=== PATIENT | female | born 1960 | race Caucasian/White ===

== ENCOUNTER 2023-06-17 23:35 | Emergency (ER) | payer OTHER, SELFPAY ==
--- NOTE | 2023-06-17 23:40 | ED.RN ---
Pt ambulates from squad to room 9 without difficulty. Pt sits on bed and immediately places a phone call to someone she calls camilo. She refuses to get off the phone to answer questions for ER staff or to sign consent for EMS. This nurse and another RN attempts to help her in explaining situation to her dad and she guards phone and states get the fuck off of me, you're out of you're fucking mind . Attempted to explain to pt that we needed to assess her, and if she had changed her mind about wanting to be seen she was free to do so and could call for a ride. She again states to nurse you are out of you're fucking mind trying to kick me out . Explained to pt no one was kicking her out and that staff was trying to assess her. After much explanation and coaxing, pt allows father to be put on speaker phone for staff to explain to him, so that he could explain to her, what staff needed and that it was okay to sign consent for EMS. Pt then signs consent for EMS.
[2023-06-17 23:46] VITALS: BP 147/95; PULSE 110; RESP 10; TEMP 36.3; O2SAT 95; BMI 19.8
--- NOTE | 2023-06-18 00:01 | EX.ED.DYSGE1 ---
HPI History of Present Illness Chief Complaint: Overdose Informant: patient Narrative Narrative: Patient presents feeling ill after taking a THC gummy. She states she has never taken these before. She felt perfectly fine but just wanted to get some sleep. She initially took one half of 1 gummy. She did not feel anything so she took the second half. Then she started to feel ill. After some questioning I find that that means she just did not feel well and she feels nauseated and shaky. No actual vomiting. The triage note says 175 mg. But this was a single gummy that she took. [facility] Medical History ADHD Home Medications buspirone 15 mg tablet 15 mg PO TID 06/17/23 [History Last Taken Unknown] diphenhydramine HCl 25 mg capsule (Benadryl) 25 mg PO Q8H PRN allergy symptoms 06/17/23 [History Last Taken Unknown] ibuprofen 200 mg capsule 400 mg PO Q8H 06/17/23 [History Last Taken Unknown] lisdexamfetamine 70 mg capsule 70 mg PO DAILY 06/17/23 [History Last Taken Unknown] Allergy/AdvReac Type Severity Reaction Status Date / Time acetaminophen [From Percocet] Allergy PT UNSURE Verified 06/17/23 23:50 OF REACTION clarithromycin [From Biaxin] Allergy Nausea/Vom/ Verified 06/17/23 23:50 Diarrhea famotidine [From Pepcid] Allergy PT UNSURE Verified 06/17/23 23:50 OF REACTION oxycodone [From Percocet] Allergy PT UNSURE Verified 06/17/23 23:50 OF REACTION Penicillins Allergy Rash Verified 06/17/23 23:50 Surgical History History of tonsillectomy Social History household members: none housing: house current occupational status: employed Smoking Status: Never smoker ROS ROS ED Constitutional Constitutional ED: Denies chills, fever(s) or sweats Eyes Eyes: Denies change in vision ENT ENT ED: Denies rhinorrhea or sore throat Cardiovascular Cardiovascular: Denies chest pain, palpitations or racing heartbeat Respiratory/Chest Respiratory/Chest: Denies cough or dyspnea Gastrointestinal Gastrointestinal: Reports nausea; Denies abdominal pain or vomiting Genitourinary Genitourinary ED: Denies dysuria Musculoskeletal Musculoskeletal: Denies myalgias Integumentary Denies rash Neurologic Neurologic: Reports other Details: Feels shaky but no focal deficit. ; Denies headache(s), paresthesias or weakness Endocrine Endocrinology: Denies polydipsia or polyuria Hematologic/Lymphatic Hematologic/Lymphatic: Denies easy bleeding or easy bruising Allergic/Immunologic Allergic/Immunologic ED: Denies urticaria EXAM Physical Exam Narrative Exam Narrative: CONSTITUTIONAL: Patient is nontoxic in appearance. The patient looks comfortable. She is holding an emesis bag but no vomitus in there. HEENT: No notable trauma. Mucous membranes mildly dry. Normal voice. EYES: No conjunctival injection. No proptosis. CARDIOVASCULAR: Regular rate. Regular rhythm. No notable murmur. No JVD. RESPIRATORY: No respiratory distress. Breathing is unlabored. No wheezes. No rhonchi. No rales. No pain with a deep breath. Saturations are normal at 95% on room air showing no hypoxia. GASTROINTESTINAL: Not distended. Bowel sounds are normal. No tenderness. No guarding. No rebound. No palpable mass. No bruit. She has nausea but her abdomen is overall benign. GENITOURINARY: No tenderness over the bladder. MUSCULOSKELETAL: Atraumatic. No peripheral edema. No tenderness NEUROLOGICAL: Patient is alert and appropriate. She is sometimes just slightly slow to answer questions. She also refers to her chart for her history and allergies etc. SKIN: No noted rashes. No diaphoresis. PSYCHIATRIC: Patient is calm. Mood is flat. Const Vital Signs: 06/17/23 23:46 06/18/23 00:09 06/18/23 02:04 Temperature 97.4 F L Temperature Source Temporal Pulse Rate 110 H 108 H 85 Respiratory Rate 10 L 16 16 Blood Pressure 147/95 H 138/100 H 139/87 H Blood Pressure Mean 112 112 104 Pulse Ox 95 96 98 Oxygen Delivery Method Room Air Room Air Room Air 06/18/23 02:44 Temperature 98 F Temperature Source Pulse Rate 79 Respiratory Rate 16 Blood Pressure 129/79 H Blood Pressure Mean 95 Pulse Ox 98 Oxygen Delivery Method MDM MDM MDM Narrative Medical decision making narrative: Patient's CBC is normal. Patient's her electrolytes are normal other than mildly low potassium at 3.4 that should self-correct. Patient's glucose is a little bit high at 179. This will need to be rechecked but I do not think this needs acute treatment at this time. Patient's troponin is normal. We did this not because she was having chest pain but rather that she had just generalized ill feelings with an abnormal EKG and no prior for comparison. Patient is treated with Zofran and IV fluids. She has been doing better. Her heart rate is down. She is tired but otherwise feels okay. I think she is safe to get home. I will write for a few Zofran if needed further. Lab Data Attestation: I reviewed the patient's lab results. Labs: Laboratory Results - last 24 hr 06/18/23 00:10 WBC 5.7 RBC 4.88 Hgb 14.8 Hct 44.7 MCV 91.6 MCH 30.3 MCHC 33.1 RDW Std Deviation 41.4 RDW Coeff of Ermelinda 12.3 Plt Count 301 MPV 8.5 Immature Gran % (Auto) 0.200 Neut % (Auto) 50.5 Lymph % (Auto) 39.3 Hudson % (Auto) 10.0 Eos % (Auto) 0.0 Baso % (Auto) 0.0 Absolute Neuts (auto) 2.9 Absolute Lymphs (auto) 2.23 Nucleated RBC % 0 Sodium 137 Potassium 3.4 L Chloride 105 Carbon Dioxide 28.0 Anion Gap 4 L BUN 20 H Creatinine 0.85 Estim Creat Clear Calc 65.87 Est GFR (MDRD) Af Amer 87 Est GFR (MDRD) Non-Af 72 BUN/Creatinine Ratio 23.6 H Glucose 179 H Calcium 9.5 Troponin I High Sens 5 EKG Initial EKG: Comments: My independent interpretation of the patient's EKG shows sinus rhythm with overall rate of 92. There was a right bundle branch block and some signs of LVH. There is diffuse ST and T wave changes likely from her bundle and LVH and some motion artifact. No convincing evidence of acute ST elevation. I was not able to find an old for comparison. Discharge Plan Triage Chief Complaint: Overdose ED Provider: Sanjiv Magallanes Dx/Rx/DC Orders Clinical Impression: Adverse effect of cannabis Instructions: ED Drug Reaction, Other Prescriptions: No Action buspirone 15 mg tablet 15 mg PO TID Patient Comments: Take 1 tablet by mouth three times a day. lisdexamfetamine 70 mg capsule 70 mg PO DAILY Patient Comments: TAKE 1 CAPSULE BY MOUTH ONCE DAILY ibuprofen 200 mg capsule 400 mg PO Q8H diphenhydramine HCl [Benadryl] 25 mg capsule 25 mg PO Q8H PRN (Reason: allergy symptoms) Primary Care Provider: Yarely Tolentino NP Referrals: NOT,DEFINED [Non-Staff] - Yarely Tolentino FIRE INFORMATION OFFICER, FIRE INFORMATION OFFICER-C [Primary Care Provider] - 1-2 Days if not improving Disposition Disposition: Home, Self Care
[2023-06-18] MEDS: 0.9% Normal Saline (1000mL) 1,000 ML 1000 ML IV (00:06)
[2023-06-18] MEDS: Ondansetron 4 MG/2 ML Vial IV (00:07)
[2023-06-18 00:09] VITALS: BP 138/100; PULSE 108; RESP 16; O2SAT 96
[2023-06-18 00:19] LABS: Absolute Lymphocyte Count 2.23 X10^3/uL (0.83-4.51); Absolute Neutrophil Count 2.9 X10^3/uL (2.0-7.7); Hematocrit 44.7 % (37-47); Hemoglobin 14.8 g/dL (12.0-15.0); Lymphocyte # 2.23 X10^3/ul (0.83-4.51); Lymphocyte % 39.3 % (19-41); Mean Corp Hgb Conc 33.1 g/dL (32-36); Mean Corpuscular Hgb 30.3 pg (27.0-32.0); Mean Corpuscular Volume 91.6 fL (81-99); Mean Platelet Vol. 8.5 fl (6.2-12.0); Monocyte# 0.57 X10^3/uL; NRBC Flagged by Analyzer 0 % (0-5); Neutrophil # 2.87 X10^3/uL (2.7-7.7); Neutrophil % 50.5 % (47-70); Platelet Count 301 K/mm3 (150-450); RBC Distribution Width CV 12.3 % (11.6-14.6); RBC Distribution Width SD 41.4 fl (35.1-43.9); Red Blood Count 4.88 M/mm3 (4.2-5.4); White Blood Count 5.7 K/mm3 (4.4-11.0)
[2023-06-18 00:33] LABS: Anion Gap 4 (5-15); BUN 20 mg/dL (7-18); BUN/Creat Ratio 23.6 RATIO (10-20); Calcium,Total 9.5 mg/dL (8.5-10.1); Chloride 105 mmol/L (98-107); Creatinine, Serum 0.85 mg/dL (0.55-1.02); EST Glomerular Filtration Rate 72 mL/min (>60); Est Glom Filt Rate - Afr Amer 87 mL/min (>60); Estimated Creatinine Clearance 65.87 ml/min; Glucose 179 mg/dL (74-106); Potassium 3.4 mmol/L (3.5-5.1); Sodium Level 137 mmol/L (136-145)
--- NOTE | 2023-06-18 00:45 | ED.RN ---
Registration makes this nurse aware that pt refuses to sign consent. This nurse to room. Pt has blanket over head and refuses to talk to nurse. This nurse removes blanket from her head, pt quickly grabs blanket from nurse and places back over her head. This nurse attempts to talk to pt and she refuses to answer. Arthur removed from pt. Pt stares straight ahead and refuses to talk to any ER staff.
--- OUTSIDE RECORDS SUMMARY | 2023-06-18 00:45 | XMS RPT_ITS | CCD ---
Author Name Unknown Address [address] [place] [address] Organization [facility] Care Team Providers Care Stitch Bonding Machine Operator Name Role Phone Renan Crum Unavailable Unavailable Aminah Roblero Unavailable Unavailable ROSEANNE JASON (PA) Unavailable Unavailable ROSEANNE JASON (PA) Unavailable Unavailable Unavailable Primary Care Provider Unavailabl e Unavailable Primary Care Provider Unavailabl e Queden CREATIVE MANAGER.DISPATCH MACHINE RUNNER, Yarely A Primary Care Provider QUEDEN, YARELY A Referring Unavailable QUEDEN, YARELY A Primary Care Unavailable QUEDEN, YARELY A Attending Unavailable QUEDEN, YARELY A Primary Care Unavailable BERNNER, CAROLYN E Attending Unavailable BRENNER, CAROLYN E Attending Unavailable BRENNER, CAROLYN E Attending Unavailable QUEDEN, YARELY A Primary Care Unavailable QUEDEN, YARELY A Primary Care Unavailable Allergies Allergy Classification Reported Allergen(s) Allergy Type Date of Onset Reaction(s) Facility (1 source) acetaminophen / oxyCODONE; Translations: [Percocet 5/325] Drug Allergy [facility] Repository (1 source) clarithromycin; Translations: [Biaxin] Drug Allergy [facility] Repository (1 source) famotidine; Translations: [Pepcid I.V.] [facility] ([facility] source) famotidine; Translations: [Pepcid] Drug Allergy [facility] Repository (20 sources) Penicillins; Translations: [penicillins] Propensity to adverse reactions to drug (disorder) 5 [facility] Repository (20 sources) acetaminophen / oxyCODONE; Translations: [OXYCODONE-ACETAM INOPHEN] Drug Allergy 5 [facility] Repository (20 sources) clarithromycin; Translations: [CLARITHROMYCIN] Drug Allergy 6 Intolerance [facility] Repository (20 sources) famotidine; Translations: [FAMOTIDINE] Drug Allergy 6 Rash [facility] Repository Medications Current Medications Medication Drug Class(es) Dates Sig (Normalized) Sig (Original) busPIRone hydrochloride 15 mg oral tablet (20 sources) Start: 02-20-2023 End: 07-18-2023 take 1 tablet by mouth three times daily busPIRone (BUSPAR) 15 mg tablet Take 1 tablet by mouth three times a day. 90 tablet 2 04/19/2023 07/18/2023 Active Completed/Discontinued Medications Medication Drug Class(es) Dates Sig (Normalized) Sig (Original) ferrous sulfate 325 mg oral tablet (2 sources) End: 11-01-2022 ferrous sulfate 325 mg (65 mg iron) tablet Take 325 mg by mouth. 0 11/01/2022 Discontinued Problems Active Problems Problem Classification Problem Date Documented Date Episodic/Chronic Adjustment disorders (20 sources) Family tension; Translations: [Reaction to severe stress, unspecified] Onset: 06-17-2014 06-17-2014 Chronic Anxiety disorders (20 sources) Generalized anxiety disorder; Translations: [Generalized anxiety disorder] Onset: 10-08-2021 Chronic Attention-deficit, conduct, and disruptive behavior disorders (1 source) Attention-deficit hyperactivity disorder, predominantly inattentive type; Translations: [ADHD (attention deficit hyperactivity disorder), inattentive type] Onset: 10-08-2021 Chronic Cardiac dysrhythmias (1 source) Multiple premature ventricular complexes; Translations: [Ventricular premature depolarization] 05-05-2023 Chronic Cardiac dysrhythmias (9 sources) Palpitations; Translations: [Palpitations] Onset: 03-16-2023 03-16-2023 Episodic Disorders usually diagnosed in infancy, childhood, or adolescence (20 sources) Attention deficit hyperactivity disorder, predominantly inattentive type; Translations: [Other specified behavioral and emotional disorders with onset usually occurring in childhood and adolescence] 05-24-2021 Chronic Immunizations and screening for infectious disease (4 sources) Patient encounter status; Translations: [Encounter for screening for infections with a predominantly sexual mode of transmission] Onset: 03-16-2023 03-16-2023 Episodic Other female genital disorders (1 source) Vaginal lesion; Translations: [Other specified noninflammatory disorders of vagina] 03-16-2023 Episodic Other female genital disorders (1 source) Other specified noninflammatory disorders of vagina; Translations: [Vaginal lesion] Onset: 03-16-2023 Episodic Other screening for suspected conditions (not mental disorders or infectious disease) (2 sources) Encounter for screening for diabetes mellitus; Translations: [Encounter for screening for lipoid disorders] Onset: 03-16-2023 Episodic Other upper respiratory infections (1 source) Viral upper respiratory tract infection; Translations: [Acute upper respiratory infection, unspecified] Episodic Residual codes; unclassified (1 source) Insomnia; Translations: [Other insomnia] 03-19-2023 Chronic Residual codes; unclassified (20 sources) Insomnia; Translations: [Insomnia, unspecified] Onset: 11-04-2014 07-17-2006 Episodic Unclassified (1 source) Unknown / UNK(Unknown) Onset: 12-07-2017 Viral infection (20 sources) Genital herpes simplex; Translations: [Herpesviral infection of urogenital system, unspecified] Onset: 11-06-2009 11-06-2009 Chronic Past or Other Problems Problem Classification Problem Date Documented Date Episodic/Chronic Malaise and fatigue (20 sources) Fatigue; Translations: [Other fatigue] Onset: 011 04-06-2011 Episodic Nutritional deficiencies (20 sources) Magnesium deficiency; Translations: [Magnesium deficiency] Onset: 015 07-29-2014 Episodic Other circulatory disease (14 sources) ENT symptoms; Translations: [Other specified symptoms and signs involving the circulatory and respiratory systems] Onset: 015 06-17-2014 Episodic Other circulatory disease (1 source) Facial sinus finding; Translations: [Other specified symptoms and signs involving the circulatory and respiratory systems] Onset: 015 06-17-2014 Episodic Other gastrointestinal disorders (15 sources) Flatulence, eructation and gas pain; Translations: [Flatulence] Onset: 015 06-17-2014 Episodic Other gastrointestinal disorders (14 sources) Bloating symptom; Translations: [Abdominal distension (gaseous)] Onset: 06-17-2014 Episodic Other gastrointestinal disorders (1 source) Abdominal bloating; Translations: [Abdominal distension (gaseous)] Onset: 015 06-17-2014 Episodic Other skin disorders (10 sources) Dry skin; Translations: [Xerosis cutis] Onset: 011 04-06-2011 Episodic Other skin disorders (10 sources) Xeroderma; Translations: [Xerosis cutis] Onset: 011 04-06-2011 Episodic Residual codes; unclassified (20 sources) Heterozygous methylenetetrahydrofolate reductase mutation; Translations: [Genetic susceptibility to other disease] Onset: 015 07-29-2014 Episodic Residual codes; unclassified (20 sources) Postmenopausal state; Translations: [Asymptomatic menopausal state] Onset: 018 06-05-2017 Episodic Results Test Name Value Interpretation Reference Range Facil ity Vital Signs Date Time Vital Sign Value Performing Clinician Karsten deluna 03-16-2023 10:44-0400 Body height 175.3 cm Yarely Tolentino CREATIVE MANAGER.DISPATCH MACHINE RUNNER Work Phone: [facility] 03-16-2023 10:44-0400 Body temperature 98.1 [degF] Yarely Joseden CREATIVE MANAGER.DISPATCH MACHINE RUNNER Work Phone: [facility] 03-16-2023 10:44-0400 Body weight 58.06 kg Yarely Tolentino CREATIVE MANAGER.DISPATCH MACHINE RUNNER Work Phone: [facility] 03-16-2023 10:44-0400 Diastolic blood pressure 74 mm[Hg] Yarely Queden CREATIVE MANAGER.DISPATCH MACHINE RUNNER Work Phone: [facility] 03-16-2023 10:44-0400 Heart rate 88 /min Yarely Joseden CREATIVE MANAGER.DISPATCH MACHINE RUNNER Work Phone: [facility] 03-16-2023 10:44-0400 Respiratory rate 18 /min Yarely Joseden CREATIVE MANAGER.DISPATCH MACHINE RUNNER Work Phone: [facility] 03-16-2023 10:44-0400 SaO2% (BldA) [Mass fraction] 97 % Yarely Queden CREATIVE MANAGER.DISPATCH MACHINE RUNNER Work Phone: [facility] 03-16-2023 10:44-0400 Systolic blood pressure 120 mm[Hg] Yarely Tolentino CREATIVE MANAGER.DISPATCH MACHINE RUNNER Work Phone: [facility] 09-09-2022 10:34-0400 Body temperature 98.1 [degF] Gela Athy PA-C Work Phone: [facility] 09-09-2022 10:34-0400 Body weight 60.06 kg Gela Athy PA-C Work Phone: [facility] 09-09-2022 10:34-0400 Diastolic blood pressure 88 mm[Hg] Gela Athy PA-C Work Phone: [facility] 09-09-2022 10:34-0400 Heart rate 95 /min Gela Athy PA-C Work Phone: [facility] 09-09-2022 10:34-0400 Respiratory rate 16 /min Gela Athy PA-C Work Phone: [facility] 09-09-2022 10:34-0400 SaO2% (BldA) [Mass fraction] 97 % Gela Athy PA-C Work Phone: [facility] 09-09-2022 10:34-0400 Systolic blood pressure 136 mm[Hg] Gela Athy PA-C Work Phone: [facility] Encounters Encounter Date Encounter Type Care Provider Facility Start: 05-05-2023 Telephone encounter Yarely Tolentino CREATIVE MANAGER.DISPATCH MACHINE RUNNER Work Phone: [facility] Procedures Date Procedure Procedure Detail Performing Clinician Start: 09-09-2022 STREP A MOLECULAR (POC) Gela Dunn Athy PA-C Work Phone: Start: 01-25-2022 Adult depression scr eening assessment Carolyn Brenner CREATIVE MANAGER.PLANNING COORDINATOR Work Phone: Start: 10-08-2021 Adult depression scr eening assessment Carolyn Brenner CREATIVE MANAGER.PLANNING COORDINATOR Work Phone: Start: 07-16-2021 Adult depression scr eening assessment Carolyn Brenner CREATIVE MANAGER.PLANNING COORDINATOR Work Phone: Start: 03-24-2016 Colonoscopy Carolyn murcia CREATIVE MANAGER.PLANNING COORDINATOR Work Phone: Start: 03-24-2016 Mammography Carolyn murcia CREATIVE MANAGER.PLANNING COORDINATOR Work Phone: Start: 03-30-2011 Lipid 1996 panel - S jazmín or Plasma Carolyn Brenner CREATIVE MANAGER.PLANNING COORDINATOR Work Phone: Plan of Treatment Date Care Activity Detail Author Start: 03-23-2026 Diabetes Screening Diabetes Screenin g [facility] Start: 05-28-2024 Depression Assessment Depression Ass essment [facility] Immunizations Immunization Date Immunization Notes Care Provider Fa cility 03-24-2016 influenza virus vacc ine, unspecified formulation Carolyn Brenner CREATIVE MANAGER.PLANNING COORDINATOR Work Phone: [facility] Payers Date Payer Category Payer Unknown [id number] 2021 Unknown [employer] PPO [id number] 2021-Present [phone] [address] [place] [address] PPO [id number] 2021 Unknown [id number] 2021 Medicaid [facility] [id number] 2021-Present [phone] [address] [place] [address] Medicaid [id number] 2021 Medicaid [facility] [id number] 2021-2021 [address] [place], [place] [id number] Medicaid [id number] 2016 Unknown Social History Date Type Detail Facility Start: 09-06-2017 End: 09-09-2022 Tobacco smoking status NHIS Never smoked tobacco [facility] Start: 07-16-2021 End: 03-16-2023 Alcohol intake Current non-drinker of alcohol (finding) [facility] Start: 1960 Sex Assigned At Not on file [facility] Start: 09-28-2021 End: 01-25-2022 Exposure to SARS-CoV-2 (event) Not sure [facility] Start: 09-06-2017 End: 09-09-2022 Tobacco use and exposure Smokeless tobacco non-user [facility] Start: 11-01-2022 End: 04-19-2023 History of Social function [facility] Start: 11-01-2022 End: 04-19-2023 Tobacco use panel [facility] Adult Depression Scr eening Assessment [address] [facility] Clinical Notes 04-04-2013 to 05-05-2023 Telephone Encounter - Justina Rodriguez MA - 05/05/2023 2:55 PM ESTTelephone Encounter - Adrianne Garrison APRN.CNP - 05/05/2023 8:32 AM Carolyn Gonzalez APRN.CNS - 04/19/2023 9:07 AM EST Note Date & Type Note Facility 05-05-2023 Miscellaneous Notes Paitent notified. Justina Rodriguez MA Copied mailed to pt. As requested. Holter monitor shows primary rhythm of sinus rhythm, max HR 134. There were a few abnormal heart beats that are likely not concerning. No dangerous rhythms detected. I would recommend she see a cyanide pot hardener to determine if further testing is necessary. See referral to Dr Beena Herbert. Thank you, Adrianne Garrison APRN.DENNY documented in this encounter [facility] 05-05-2023 Miscellaneous Notes See other encounter. Ardianne Garrison APRN.DENNY Pt. Lm on requesting hoelter monitor results. Please advise. Justina Rodriguez MA documented in this encounter [facility] 04-19-2023 Note HNO ID: [id number] Author: Carolyn Brenner APRN.PLANNING COORDINATOR Service: ? Author Type: Nurse Specialist Type: Progress Notes Filed: 04/19/2023 9:42 AM Note Text: [facility]AL MEDIC[facility] PROGRESS NOTE PATIENT: Sammi Langley [place] MRD: [id number] DATE: April 19, 2023 OFFICE VISIT PROGRESS NOTE IDENTIFYING INFORMATION: Sammi is a 63 year old female presents for follow up appointment today for treatment of ADHD and Anxiety. CHIEF COMPLAINT: My is now living with his girlfriend and has filed for divorce INTERIM HISTORY: Patient states she is a mess after her moved out and is now living with his girlfriend. States she is concerned that he will not be fair with finances. Has now retained an state's attorney to help with the divorce process but admits that she feels alone and lonely as her son is thinking about moving to [place]. The patient talked about the possibility of leaving [place] and moving to [place] as well at some point. 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 Reports that her medications are working well with the Vyvanse at 70 mg and buspirone 15 mg 3 times daily and finds the medications helpful especially at work. The patient reports that she is not experiencing any side effects or adverse effects with the medication and no issues with sleep or appetite and continues to be productive at work. She is however feeling very sad and grieving the loss of her marriage. The patient does not report change in medical history since last visit . No concerns with Substance use or abuse since last visit. SI/HI/SIB: Denies Suicide risk indicators assessed including recent stressors? yes Suicide Risk level: low Lab Data reviewed this visit. MENTAL STATUS EXAMINATION: Mental Status Exam: General/Sensorium: Alert and AND interactive - Appearance: Appears well groomed and stated age and Casually dressed - Eye Contact: Appropriate eye contact - Demeanor: Distractible - Motor Activity: Normal - Speech: Articulate with appropriate rhythm and volume - Mood: Denies mood concerns - Affect: Reactive and Congruent with mood - Thought Process: Linear, logical, and goal-directed - Associations: Normal - Thought Content: Appropriate with no SI/HI/AVH - Perceptions: The patient does not appear internally stimulated - Cognition: Issues with attention/concentration - Insight: Good - Judgment: Good - ROS RATING SCALES: Depression Screening: PHQ-9 All Questions 03/24/2023 04/19/2023 Little interest or pleasure in doing things 1 1 Feeling down, depressed, or hopeless 0 3 Trouble falling or staying asleep, or sleeping too much 3 3 Feeling tired or having little energy 3 3 Poor appetite or overeating 3 3 Feeling bad about yourself - or that you are a failure or have let yourself or your family down 0 0 Trouble concentrating on things, such as reading the newspaper or watching television 3 3 Moving or speaking so slowly that other people could have noticed. Or the opposite - being so fidgety or restless that you have been moving around a lot more than usual 0 0 Thoughts that you would be better off , or of hurting yourself in some way 0 0 PHQ-9 Score 13 16 FLACO-7 Screening: FLACO-7 All Questions 03/24/2023 04/19/2023 Nervous, anxious or on edge 3 3 Not being able to stop or control worrying 0 0 Worrying too much 0 0 Trouble relaxing - 0 Restless 0 0 Annoyed or irritable 1 1 Afraid something awful might happen 1 1 FLACO-7 Score - 5 VITAL SIGNS: LMP 03/05/2010 No flowsheet data found. [facility] website checked and validated. All prescriptions have been APPROPRIATELY filled. No suspicious activity was identified. 04/19/2023 by Carolyn Brenner APRN.PLANNING COORDINATOR ASSESSMENT/PLAN DIAGNOSIS: ASSESSMENT/PLAN: 1. ADHD (attention deficit hyperactivity disorder), inattentive type - ICD9: 314.00, ICD10: F90.0 (primary diagnosis) 2. Generalized anxiety disorder - ICD9: 300.02, ICD10: F41.1 Carolyn Brenner APRN.PLANNING COORDINATOR Treatment plan update: Current Outpatient Medications Medication Sig Dispense Refill lisdexamfetamine (VYVANSE) 70 mg capsule Take 1 capsule by mouth once daily for 30 days. 30 capsule 0 [START ON 12/01/2022] lisdexamfetamine (VYVANSE) 70 mg capsule Take 1 capsule by mouth once daily for 30 days. Do not start before December 01, 2022. 30 capsule 0 [START ON 12/31/2022] lisdexamfetamine (VYVANSE) 70 mg capsule Take 1 capsule by mouth once daily for 30 days. Do not start before December 31, 2022. 30 capsule 0 busPIRone (BUSPAR) 15 mg tablet Take 1 tablet by mouth three times daily. 90 tablet 2 Discussed medication dosage, usage, goals of therapy, and side effects Psycho-Education: Encouraged patient to continue to explore strengths daily and challenge negative thoughts. Monitor daily: sleep, mood, anxiety, and report any changes as soon as (more content not included)... [facility] 04-19-2023 History of Presen t illness Narrative [facility] BE[facility] MEDICINE PROGRESS NOTE PATIENT: Sammi Murrell MRD: [id number] DATE: April 19, 2023 OFFICE VISIT PROGRESS NOTE IDENTIFYING INFORMATION: Sammi is a 63 year old female presents for follow up appointment today for treatment of ADHD and Anxiety. CHIEF COMPLAINT: My is now living with his girlfriend and has filed for divorce INTERIM HISTORY: Patient states she is a mess after her moved out and is now living with his girlfriend. States she is concerned that he will not be fair with finances. Has now retained an state's attorney to help with the divorce process but admits that she feels alone and lonely as her son is thinking about moving to [place]. The patient talked about the possibility of leaving [place] and moving to [place] as well at some point. 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 Reports that her medications are working well with the Vyvanse at 70 mg and buspirone 15 mg 3 times daily and finds the medications helpful especially at work. The patient reports that she is not experiencing any side effects or adverse effects with the medication and no issues with sleep or appetite and continues to be productive at work. She is however feeling very sad and grieving the loss of her marriage. The patient does not report change in medical history since last visit . No concerns with Substance use or abuse since last visit. SI/HI/SIB: Denies Suicide risk indicators assessed including recent stressors? yes Suicide Risk level: low Lab Data reviewed this visit. MENTAL STATUS EXAMINATION: Mental Status Exam: General/Sensorium: Alert and & interactive - Appearance: Appears well groomed and stated age and Casually dressed - Eye Contact: Appropriate eye contact - Demeanor: Distractible - Motor Activity: Normal - Speech: Articulate with appropriate rhythm and volume - Mood: Denies mood concerns - Affect: Reactive and Congruent with mood - Thought Process: Linear, logical, and goal-directed - Associations: Normal - Thought Content: Appropriate with no SI/HI/AVH - Perceptions: The patient does not appear internally stimulated - Cognition: Issues with attention/concentration - Insight: Good - Judgment: Good - ROS RATING SCALES: Depression Screening: PHQ-9 All Questions 03/24/2023 04/19/2023 Little interest or pleasure in doing things 1 1 Feeling down, depressed, or hopeless 0 3 Trouble falling or staying asleep, or sleeping too much 3 3 Feeling tired or having little energy 3 3 Poor appetite or overeating 3 3 Feeling bad about yourself - or that you are a failure or have let yourself or your family down 0 0 Trouble concentrating on things, such as reading the newspaper or watching television 3 3 Moving or speaking so slowly that other people could have noticed. Or the opposite - being so fidgety or restless that you have been moving around a lot more than usual 0 0 Thoughts that you would be better off , or of hurting yourself in some way 0 0 PHQ-9 Score 13 16 FLACO-7 Screening: FLACO-7 All Questions 03/24/2023 04/19/2023 Nervous, anxious or on edge 3 3 Not being able to stop or control worrying 0 0 Worrying too much 0 0 Trouble relaxing - 0 Restless 0 0 Annoyed or irritable 1 1 Afraid something awful might happen 1 1 FLACO-7 Score - 5 VITAL SIGNS: LMP 03/05/2010 No flowsheet data found. PDMP website checked and validated. All prescriptions have been APPROPRIATELY filled. No suspicious activity was identified. 04/19/2023 by Carolyn Brenner APRN.CNS ASSESSMENT/PLAN DIAGNOSIS: ASSESSMENT/PLAN: 1. ADHD (attention deficit hyperactivity disorder), inattentive type - ICD9: 314.00, ICD10: F90.0 (primary diagnosis) 2. Generalized anxiety disorder - ICD9: 300.02, ICD10: F41.1 Carolyn Brenner APRN.TACOS Treatment plan update: Current Outpatient Medications Medication Sig Dispense Refill lisdexamfetamine (VYVANSE) 70 mg capsule Take 1 capsule by mouth once daily for 30 days. 30 capsule 0 [START ON 12/01/2022] lisdexamfetamine (VYVANSE) 70 mg capsule Take 1 capsule by mouth once daily for 30 days. Do not start before December 01, 2022. 30 capsule 0 [START ON 12/31/2022] lisdexamfetamine (VYVANSE) 70 mg capsule Take 1 capsule by mouth once daily for 30 days. Do not start before December 31, 2022. 30 capsule 0 busPIRone (BUSPAR) 15 mg tablet Take 1 tablet by mouth three times daily. 90 tablet 2 Discussed medication dosage, usage, goals of therapy, and side effects Psycho-Education: Encouraged patient to continue to explore strengths daily and challenge negative thoughts. Monitor daily: sleep, mood, anxiety, and report any changes as soon as possible or go to the ED for any emergencies. Discussed the risk and benefit of the medication(s), and discussed importance of the chosen treatment plan. Patient acknowledges understanding of current treatment plan. Total time in direct patient contact = 30 min. Greater than 50% of the time was spent in counseling and/or coordination of care. Patient understands and agrees with the treatment plan: Yes Follow-up Appointment: In 3 months Signature: TACOS Brewster APRN No follow-ups on file. documented in this encounter [facility] 03-16-2023 Note HNO ID: [id number] Author: Yarely Tolentino APRN.DISPATCH MACHINE RUNNER Service: ? Author Type: Nurse Practitioner Type: Progress Notes Filed: 03/19/2023 12:45 PM Note Text: [facility]- Piedad Tolentino APRN-DISPATCH MACHINE RUNNER [address] [place] [address] Dept Dept. Visit Date: March 16, 2023 Ms.Joy Shivam Murrell Date of : 1960 MRN/E #: [id number] Chief Complaint: Patient presents with: Heart Problem: Heart rate will go up to 120 resting everyday and gets heart pressure History of Present Illness Sammi Murrell is a 62 year old female presenting today as a new patient to establish care. I reviewed past medical, surgical, social, and family histories today and updated chart. Allergies, chronic medications, and supplements were also reviewed. She hasn't had a PCP in a few years but does follow with psychiatry from ADHD and anxiety. She has a few concerns today including recurrent nosebleeds and an increased heart rate. She has had nosebleeds in the past that required an ENT to cauterize the right side of her nose. She reports noticing an increased HR for the last year. Going through a stressful time, currently in the middle of a divorce. She reports he was unfaithful in their marriage and she noticed some red spots on the outside of her vagina about 3 months ago. They can sometimes looks like little blisters. She does not shave. She denies any vaginal discharge or itching. Not sleeping well Takes Nyquil and CBD gummies The history is provided by the patient. No handle bar assembler was used. Heart Problem This is a new problem. Associated symptoms include dizziness (from her neck) and palpitations. Pertinent negatives include no back pain, no cough, no diaphoresis, no fever, no headaches, no shortness of breath and no weakness. Pertinent negatives for past medical history include no seizures. PAST MEDICAL HISTORY Diagnosis Date Adjustment disorder with depressed mood Attention deficit disorder without mention of hyperactivity age mid 30's seen [address] Dr. 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) Myalgia and myositis, unspecified PAST SURGICAL HISTORY Procedure Laterality Date LAPS ABD PRTMANDOMENTUM DX W/WO SPEC BR/WA SPX 1991 Laparoscopy - Dx with spastic colon TONSILLECTOMY AND ADENOIDECTOMY Social History Tobacco Use Smoking status: Never Smokeless tobacco: Never Substance Use Topics Alcohol use: No Drug use: Yes Types: Marijuana Comment: CBD gummies Social History Social History Narrative Not on file Family History Reviewed Including Cardiac Diseases, Psychiatric Diseases, AND Substance Abuse Problem: Hypertension Relation: Father Age of Onset: (Not Specified) Comment: age 40's; Problem: Prostate Cancer Relation: Father Age of Onset: (Not Specified) Comment: dx'd age 58, survivor; Problem: Colon Cancer Relation: Other Age of Onset: (Not Specified) Comment: NONE Problem: Coronary Artery Disease Relation: Other Age of Onset: (Not Specified) Comment: NONE Problem: Diabetes Relation: Other Age of Onset: (Not Specified) Comment: NONE Problem: Cataract Relation: Paternal Grandmother Age of Onset: (Not Specified) ALLERGIES Allergen Reactions Biaxin [Clarithromy* Intolerance Penicillins Hives Pepcid [Famotidine] Rash Percocet [Oxycodone* Current Outpatient Medications Medication Sig busPIRone (BUSPAR) 15 mg tablet Take 15 mg by mouth three times a day. lisdexamfetamine (VYVANSE) 70 mg capsule Take 1 capsule by mouth once daily for 30 days. Do not start before December 31, 2022. VITAMIN B COMPLEX (B COMPLEX ORAL) Take by mouth. ibuprofen (MOTRIN) 400 mg tablet Take 400 mg by mouth every 6 hours as needed. No current facility-administered medications for this visit. Review of Systems Review of Systems Constitutional: Positive for fatigue and unexpected weight change. Negative for appetite change, chills, diaphoresis and fever. HENT: Positive for nosebleeds. Negative for congestion, ear pain, postnasal drip, sinus pressure, sinus pain, tinnitus and trouble swallowing. Eyes: Positive for visual disturbance (wears contacts). Respiratory: Negative for cough, chest tightness, shortness of breath and wheezing. Cardiovascular: Positive for chest pain (Chest tightness. Sometimes like pressure.) and palpitations. Negative for leg swelling. Gastrointestinal: Negative. Endocrine: Negative. Genitourinary: Negative. Musculoskeletal: Positive for neck pain. Negative for arthral (more content not included)... [facility] 03-16-2023 Instructions Yarely Tolentino APRN.CNP - 03/16/2023 11:21 AM EDT Fast for 10-12 hours before labs [facility] Cardiac testing, Sleep services, and pulmonary testing, please meryl [phone] documented in this encounter [facility] 03-16-2023 History of Presen t illness Narrative Images from the original note were not included. [facility] Yarely Tolentino APRN-DENNY [address] [place] [address] Dept Dept. Visit Date: March 16, 2023 Ms.Joy Shivam Murrell Date of : 1960 MRN/E #: [id number] Chief Complaint: Patient presents with: Heart Problem: Heart rate will go up to 120 resting everyday and gets heart pressure History of Present Illness Sammi Murrell is a 62 year old female presenting today as a new patient to establish care. I reviewed past medical, surgical, social, and family histories today and updated chart. Allergies, chronic medications, and supplements were also reviewed. She hasn't had a PCP in a few years but does follow with psychiatry from ADHD and anxiety. She has a few concerns today including recurrent nosebleeds and an increased heart rate. She has had nosebleeds in the past that required an ENT to cauterize the right side of her nose. She reports noticing an increased HR for the last year. Going through a stressful time, currently in the middle of a divorce. She reports he was unfaithful in their marriage and she noticed some red spots on the outside of her vagina about 3 months ago. They can sometimes looks like little blisters. She does not shave. She denies any vaginal discharge or itching. Not sleeping well Takes Nyquil and CBD gummies The history is provided by the patient. No handle bar assembler was used. Heart Problem This is a new problem. Associated symptoms include dizziness (from her neck) and palpitations. Pertinent negatives include no back pain, no cough, no diaphoresis, no fever, no headaches, no shortness of breath and no weakness. Pertinent negatives for past medical history include no seizures. PAST MEDICAL HISTORY Diagnosis Date Adjustment disorder with depressed mood Attention deficit disorder without mention of hyperactivity age mid 30's seen [address] Dr. Arredondo, [facility]; meds started, seen many doctors with moves over the years Disorders of iron metabolism LOW FERRITIN 08/2006, no work-up started yet Esophageal reflux Human papillomavirus in conditions classified elsewhere and of unspecified site Insomnia, unspecified early 40's intermittent; Joel works well; has needed 12.5 CR Irritable bowel syndrome Mitral valve disorders(424.0) Myalgia and myositis, unspecified PAST SURGICAL HISTORY Procedure Laterality Date LAPS ABD PRTM&OMENTUM DX W/WO SPEC BR/WA SPX 1991 Laparoscopy - Dx with spastic colon TONSILLECTOMY & ADENOIDECTOMY <AGE 13 Social History Tobacco Use Smoking status: Never Smokeless tobacco: Never Substance Use Topics Alcohol use: No Drug use: Yes Types: Marijuana Comment: BETH padilla Social History Social History Narrative Not on file Family History Reviewed Including Cardiac Diseases, Psychiatric Diseases, & Substance Abuse Problem: Hypertension Relation: Father Age of Onset: (Not Specified) Comment: age 40's; Problem: Prostate Cancer Relation: Father Age of Onset: (Not Specified) Comment: dx'd age 58, survivor; Problem: Colon Cancer Relation: Other Age of Onset: (Not Specified) Comment: NONE Problem: Coronary Artery Disease Relation: Other Age of Onset: (Not Specified) Comment: NONE Problem: Diabetes Relation: Other Age of Onset: (Not Specified) Comment: NONE Problem: Cataract Relation: Paternal Grandmother Age of Onset: (Not Specified) ALLERGIES Allergen Reactions Biaxin [Clarithromy* Intolerance Penicillins Hives Pepcid [Famotidine] Rash Percocet [Oxycodone* Current Outpatient Medications Medication Sig busPIRone (BUSPAR) 15 mg tablet Take 15 mg by mouth three times a day. lisdexamfetamine (VYVANSE) 70 mg capsule Take 1 capsule by mouth once daily for 30 days. Do not start before December 31, 2022. VITAMIN B COMPLEX (B COMPLEX ORAL) Take by mouth. ibuprofen (MOTRIN) 400 mg tablet Take 400 mg by mouth every 6 hours as needed. No current facility-administered medications for this visit. Review of Systems Review of Systems Constitutional: Positive for fatigue and unexpected weight change. Negative for appetite change, chills, diaphoresis and fever. HENT: Positive for nosebleeds. Negative for congestion, ear pain, postnasal drip, sinus pressure, sinus pain, tinnitus and trouble swallowing. Eyes: Positive for visual disturbance (wears contacts). Respiratory: Negative for cough, chest tightness, shortness of breath and wheezing. Cardiovascular: Positive for chest pain (Chest tightness. Sometimes like pressure.) and palpitations. Negative for leg swelling. Gastrointestinal: Negative. Endocrine: Negative. Genitourinary: Negative. Musculoskeletal: Positive for neck pain. Negative for arthralgias, back pain, gait problem and myalgias. Skin: Negative. Allergic/Immunologic: Negative. Neurological: Positive for dizziness (from her neck). Negative for seizures, syncope, weakness, light-headedness and headaches. Hematological: Negative. Psychiatric/Behavioral: Positive for decreased concentration and dysphoric mood. Negative for sleep disturbance. The patient is nervous/anxious. Vital Signs BP 120/74 Pulse 88 Temp 98.1 Resp 18 Ht 5' 9 (1.75m) Wt 128 lb (58.1kg) SpO2 97% LMP 03/05/2010 BMI 18.89 kg/(m^2). Physical Exam Vitals and nursing note reviewed. Constitutional: Appearance: Normal appearance. HENT: Head: Normocephalic. Right Ear: Tympanic membrane, ear canal and external ear normal. Left Ear: Tympanic membrane, ear canal and external ear normal. Mouth/Throat: Mouth: Mucous membranes are moist. Pharynx: Oropharynx is clear. Eyes: Pupils: Pupils are equal, round, and reactive to light. Cardiovascular: Rate and Rhythm: Normal rate and regular rhythm. Heart sounds: Normal heart sounds. Pulmonary: Effort: Pulmonary effort is normal. Breath sounds: Normal breath sounds. Abdominal: General: Bowel sounds are normal. Palpations: Abdomen is soft. Musculoskeletal: Cervical back: Neck supple. Lymphadenopathy: Cervical: No cervical adenopathy. Skin: General: Skin is warm and dry. Neurological: General: No focal deficit present. Mental Status: She is alert and oriented to person, place, and time. Psychiatric: Mood and Affect: Mood is anxious. Speech: Speech normal. Behavior: Behavior is cooperative. Cognition and Memory: Cognition normal. 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 Palpitations - ICD9: 785.1, ICD10: R00.2 (primary diagnosis) - Stress management, adequate sleep, regular exercise, healthy diet - Check Holter monitor - HOLTER MONITOR 72 HOUR - CBC + DIFF - TSH BLD - COMP METABOLIC PANEL 2. Vaginal lesion - ICD9: 623.8, ICD10: N89.8 - Check for STIs 3. Generalized anxiety disorder - ICD9: 300.02, ICD10: F41.1 - Under the care of psychiatry 4. ADHD (attention deficit hyperactivity disorder), inattentive type - ICD9: 314.00, ICD10: F90.0 - Under the care of psychiatry - Stable on Vyvanse 5. Other insomnia - ICD9: 780.52, ICD10: G47.09 6. Routine screening for STI (sexually transmitted infection) - ICD9: V74.5, ICD10: Z11.3 - GONORRHEA/CHLAMYDIA NAAT - TRICHOMONAS VAGINALIS NAAT - SYPHILIS TOTAL W/REFLEX - HEPATITIS C ANTIBODY IA WITH CONFIRMATION - HIV 1 2 COMBO(AG/AB),WITH REFLEX TO DIFFERENTIATION - HERPES SIMPLEX TYPE 1 AND 2 IG 7. Screening for diabetes mellitus - ICD9: V77.1, ICD10: Z13.1 - CMP Discussed above plan with patient and is agreeable with above plan. Follow up visit Return if symptoms worsen or fail to improve. Yarely Tolentino APRN.CNP, signed on March 16, 2023 10:54 AM documented in this encounter [facility] 02-20-2023 Miscellaneous Notes Patient called requesting the following refill: Patient states she doesn't feel Concerta is working well and only asks for a short supply to get her to the appt date in hopes of a change in medication. Erika Jaquez Refill(s) Requested: Requested Prescriptions Pending Prescriptions Disp Refills methylphenidate ER (CONCERTA) 36 mg biphasic tablet 14 tablet 0 Si tablet daily ALLERGIES Allergen Reactions Biaxin [Clarithromy* Intolerance Penicillins Hives Pepcid [Famotidine] Rash Percocet [Oxycodone* (home) Last Office Visit Date: 11/01/22 Future Appointment: 02/28/23 The patients preferred pharmacy has been captured for this encounter? yes Request is for script(s) to be escript to pharmacy. Specialty Problems Psych Problems ADHD (attention deficit hyperactivity disorder), inattentive type Generalized anxiety disorder Erika Jaquez February 20, 2023 11:31 AM documented in this encounter [facility] 01-18-2023 Note HNO ID: [id number] Author: Marycruz Hahn APRN.CNP Service: ? Author Type: Nurse Practitioner Type: Progress Notes Filed: 01/18/2023 3:12 PM Note Text: PDMP website checked and validated. All prescriptions have been APPROPRIATELY filled. No suspicious activity was identified. 01/18/2023 by Marycruz Wilkerson APRN.CNP [facility] 01-18-2023 History of Presen t illness Narrative PDMP website checked and validated. All prescriptions have been APPROPRIATELY filled. No suspicious activity was identified. 01/18/2023 by Marycruz Wilkerson APRN.CNP documented in this encounter [facility] 01-18-2023 Miscellaneous Notes Patient called to request Concerta refill but would like to go to the higher dose. Her insurance made her start out at the lowest dose and increase if necessary. She states the 36 mg helps some but feels it is a baby dose and needs a higher dose. See [employer] message from 12/19/22 in regards to insurance and Concerta. Drug [place] - Chrissie Jaquez documented in this encounter [facility] 11-01-2022 Note HNO ID: [id number] Author: Carolyn Brenner APRN.PLANNING COORDINATOR Service: ? Author Type: Nurse Specialist Type: Progress Notes Filed: 11/01/2022 1:07 PM Note Text: [facility] PROGRESS NOTE PATIENT: Sammi Langley [place] MRD: [id number] DATE: November 01, 2022 VIRTUAL VISIT PROGRESS NOTE This visit is being conducted using HIPPA compliant telecommunication system permitting interactive audio and video Proper identity has been estbablished and consent to treat is confirmed. IDENTIFYING INFORMATION: Sammi is a 62 year old female presents for follow up appointment today for treatment of ADHD and Anxiety. CHIEF COMPLAINT: My is still seeing another woman INTERIM HISTORY: Patient reports she is still very unhappy in her marriage and says her is still seeing another woman. The patient states that she has a tracker on her and knows his whereabouts and that is how she found out. Despite this turn of events, her is taking better care of her and even cooking for her but at times is awful' and has a dual personality according to patient. 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 Reports that her medications are also working well with the Vyvanse at 70 mg and buspirone 15 mg 3 times daily and finds the medications helpful especially at work. Currently she is working evening shifts so she does not have to deal with her . The patient reports that she is not experiencing any side effects or adverse effects with the medication and no issues with sleep or appetite and continues to be productive at work. The patient does not report change in medical history since last visit . No concerns with Substance use or abuse since last visit. SI/HI/SIB: Denies Suicide risk indicators assessed including recent stressors? yes Suicide Risk level: low Lab Data reviewed this visit. MENTAL STATUS EXAMINATION: Mental Status Exam: General/Sensorium: Alert and AND interactive - Appearance: Appears well groomed and stated age and Casually dressed - Eye Contact: Appropriate eye contact - Demeanor: Distractible - Motor Activity: Normal - Speech: Articulate with appropriate rhythm and volume - Mood: Denies mood concerns - Affect: Reactive and Congruent with mood - Thought Process: Linear, logical, and goal-directed - Associations: Normal - Thought Content: Appropriate with no SI/HI/AVH - Perceptions: The patient does not appear internally stimulated - Cognition: Issues with attention/concentration - Insight: Good - Judgment: Good - ROS RATING SCALES: Depression Screening: PHQ-9 All Questions 08/11/2022 11/01/2022 Little interest or pleasure in doing things 0 0 Feeling down, depressed, or hopeless 0 0 Trouble falling or staying asleep, or sleeping too much 1 2 Feeling tired or having little energy 1 2 Poor appetite or overeating 0 1 Feeling bad about yourself - or that you are a failure or have let yourself or your family down 0 0 Trouble concentrating on things, such as reading the newspaper or watching television 1 1 Moving or speaking so slowly that other people could have noticed. Or the opposite - being so fidgety or restless that you have been moving around a lot more than usual 0 0 Thoughts that you would be better off , or of hurting yourself in some way 0 0 PHQ-9 Score 3 6 FLACO-7 Screening: FLACO-7 All Questions 08/11/2022 11/01/2022 Nervous, anxious or on edge 1 1 Not being able to stop or control worrying 0 0 Worrying too much - - Trouble relaxing 0 0 Restless 0 0 Annoyed or irritable 0 0 Afraid something awful might happen 0 0 FLACO-7 Score - - VITAL SIGNS: LMP 03/05/2010 No flowsheet data found. PDMP website checked and validated. All prescriptions have been APPROPRIATELY filled. No suspicious activity was identified. 11/01/2022 by Carolyn Brenner APRN.PLANNING COORDINATOR ASSESSMENT/PLAN DIAGNOSIS: ASSESSMENT/PLAN: 1. ADHD (attention deficit hyperactivity disorder), inattentive type - ICD9: 314.00, ICD10: F90.0 (primary diagnosis) 2. Generalized anxiety disorder - ICD9: 300.02, ICD10: F41.1 Carolyn Brenner APRN.PLANNING COORDINATOR Treatment plan update: Current Outpatient Medications Medication Sig Dispense Refill lisdexamfetamine (VYVANSE) 70 mg capsule Take 1 capsule by mouth once daily for 30 days. 30 capsule 0 [START ON 12/01/2022] lisdexamfetamine (VYVANSE) 70 mg capsule Take 1 capsule by mouth once daily for 30 days. Do not start before December 01, 2022. 30 capsule 0 [START ON 12/31/2022] lisdexamfetamine (VYVANSE) 70 mg capsule Take 1 capsule by mouth once daily for 30 days. Do not start before December 31, 2022. 30 capsule 0 busPIRone (BUSPAR) 15 mg tablet Take 1 tablet by mouth three times daily. 90 tablet 2 Discussed medication dosage, usage, goals of therapy, and side effects Psycho-Edu (more content not included)... [facility] 11-01-2022 History of Presen t illness Narrative [facility] MED[facility]INE PROGRESS NOTE PATIENT: Sammi Murrell MRD: [id number] DATE: November 01, 2022 VIRTUAL VISIT PROGRESS NOTE This visit is being conducted using HIPPA compliant telecommunication system permitting interactive audio and video Proper identity has been estbablished and consent to treat is confirmed. IDENTIFYING INFORMATION: Sammi is a 62 year old female presents for follow up appointment today for treatment of ADHD and Anxiety. CHIEF COMPLAINT: My is still seeing another woman INTERIM HISTORY: Patient reports she is still very unhappy in her marriage and says her is still seeing another woman. The patient states that she has a tracker on her and knows his whereabouts and that is how she found out. Despite this turn of events, her is taking better care of her and even cooking for her but at times is awful' and has a dual personality according to patient. 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 Reports that her medications are also working well with the Vyvanse at 70 mg and buspirone 15 mg 3 times daily and finds the medications helpful especially at work. Currently she is working evening shifts so she does not have to deal with her . The patient reports that she is not experiencing any side effects or adverse effects with the medication and no issues with sleep or appetite and continues to be productive at work. The patient does not report change in medical history since last visit . No concerns with Substance use or abuse since last visit. SI/HI/SIB: Denies Suicide risk indicators assessed including recent stressors? yes Suicide Risk level: low Lab Data reviewed this visit. MENTAL STATUS EXAMINATION: Mental Status Exam: General/Sensorium: Alert and & interactive - Appearance: Appears well groomed and stated age and Casually dressed - Eye Contact: Appropriate eye contact - Demeanor: Distractible - Motor Activity: Normal - Speech: Articulate with appropriate rhythm and volume - Mood: Denies mood concerns - Affect: Reactive and Congruent with mood - Thought Process: Linear, logical, and goal-directed - Associations: Normal - Thought Content: Appropriate with no SI/HI/AVH - Perceptions: The patient does not appear internally stimulated - Cognition: Issues with attention/concentration - Insight: Good - Judgment: Good - ROS RATING SCALES: Depression Screening: PHQ-9 All Questions 08/11/2022 11/01/2022 Little interest or pleasure in doing things 0 0 Feeling down, depressed, or hopeless 0 0 Trouble falling or staying asleep, or sleeping too much 1 2 Feeling tired or having little energy 1 2 Poor appetite or overeating 0 1 Feeling bad about yourself - or that you are a failure or have let yourself or your family down 0 0 Trouble concentrating on things, such as reading the newspaper or watching television 1 1 Moving or speaking so slowly that other people could have noticed. Or the opposite - being so fidgety or restless that you have been moving around a lot more than usual 0 0 Thoughts that you would be better off , or of hurting yourself in some way 0 0 PHQ-9 Score 3 6 FLACO-7 Screening: FLACO-7 All Questions 08/11/2022 11/01/2022 Nervous, anxious or on edge 1 1 Not being able to stop or control worrying 0 0 Worrying too much - - Trouble relaxing 0 0 Restless 0 0 Annoyed or irritable 0 0 Afraid something awful might happen 0 0 FLACO-7 Score - - VITAL SIGNS: LMP 03/05/2010 No flowsheet data found. [facility]. All prescriptions have been APPROPRIATELY filled. No suspicious activity was identified. 11/01/2022 by Carolyn Brenner APRN.TACOS ASSESSMENT/PLAN DIAGNOSIS: ASSESSMENT/PLAN: 1. ADHD (attention deficit hyperactivity disorder), inattentive type - ICD9: 314.00, ICD10: F90.0 (primary diagnosis) 2. Generalized anxiety disorder - ICD9: 300.02, ICD10: F41.1 Carolyn Brenner APRN.TACOS Treatment plan update: Current Outpatient Medications Medication Sig Dispense Refill lisdexamfetamine (VYVANSE) 70 mg capsule Take 1 capsule by mouth once daily for 30 days. 30 capsule 0 [START ON 12/01/2022] lisdexamfetamine (VYVANSE) 70 mg capsule Take 1 capsule by mouth once daily for 30 days. Do not start before December 01, 2022. 30 capsule 0 [START ON 12/31/2022] lisdexamfetamine (VYVANSE) 70 mg capsule Take 1 capsule by mouth once daily for 30 days. Do not start before December 31, 2022. 30 capsule 0 busPIRone (BUSPAR) 15 mg tablet Take 1 tablet by mouth three times daily. 90 tablet 2 Discussed medication dosage, usage, goals of therapy, and side effects Psycho-Education: Encouraged patient to continue to explore strengths daily and challenge negative thoughts. Monitor daily: sleep, mood, anxiety, and report any changes as soon as possible or go to the ED for any emergencies. Discussed the risk and benefit of the medication(s), and discussed importance of the chosen treatment plan. Patient acknowledges understanding of current treatment plan. Total time in direct patient contact = 25 min. Greater than 50% of the time was spent in counseling and/or coordination of care. Patient understands and agrees with the treatment plan: Yes Follow-up Appointment: In 3 months Signature: TACOS Brewster APRN No follow-ups on file. documented in this encounter [facility] 09-09-2022 Note HNO ID: [id number] Author: Glea Mejía PA-C Service: ? Author Type: Physician Welfare Specialist Type: Progress Notes Filed: 09/09/2022 11:24 AM Note Text: This note was created using NoteWriter. Subjective Sammi Murrell is a 62 year old female. HPI Patient presents with cough, sore throat, postnasal drip over the past 6 days. Her ear has been bothering her on the left as well. No fever. No chest pain or shortness of breath. She has tried Delsym, guaifenesin and Benadryl [id number]. No vomiting or diarrhea. Some people have been sick in her work. Review of Systems Constitutional: Negative for fever. HENT: Positive for congestion, ear pain, postnasal drip and sore throat. Negative for sinus pressure and sinus pain. Respiratory: Positive for cough. Negative for shortness of breath and wheezing. All other systems reviewed and are negative. PAST MEDICAL HISTORY Diagnosis Date Adjustment disorder with depressed mood Attention deficit disorder without mention of hyperactivity age mid 30's [address] Dr. 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 [START ON 10/11/2022] lisdexamfetamine (VYVANSE) 70 mg capsule Take 1 capsule by mouth once daily for 30 days. Do not start before October 11, 2022. 30 capsule 0 busPIRone (BUSPAR) 15 mg tablet Take 1 tablet by mouth three times daily. 90 tablet 2 VITAMIN B COMPLEX (B COMPLEX ORAL) Take by mouth. [START ON 09/11/2022] lisdexamfetamine (VYVANSE) 70 mg capsule Take 1 capsule by mouth once daily for 30 days. Do not start before September 11, 2022. 30 capsule 0 lisdexamfetamine (VYVANSE) 70 mg capsule Take 1 capsule by mouth once daily for 30 days. 30 capsule 0 ibuprofen (MOTRIN) 400 mg tablet Take 400 mg by mouth every 6 hours as needed. No current facility-administered medications for this visit. PAST SURGICAL HISTORY Procedure Laterality Date LAPS ABD PRTMANDOMENTUM DX W/WO SPEC BR/WA SPX 1991 Laparoscopy - Dx with spastic colon TONSILLECTOMY AND ADENOIDECTOMY FAMILY HISTORY Problem Relation Age of Onset Hypertension Father age 40's; Prostate Cancer Father dx'd age 58, survivor; Colon Cancer Other NONE Coronary Artery Disease Other NONE Diabetes Other NONE Cataract Paternal Grandmother Social History Tobacco Use Smoking status: Never Smokeless tobacco: Never Substance Use Topics Alcohol use: No Drug use: No Objective BP 136/88 Pulse 95 Temp 36.7 ?C (98.1 ?F) (Tympanic) Resp 16 Wt 60.1 kg (132 lb 6.4 oz) LMP 03/05/2010 SpO2 97% BMI 20.13 kg/m? Physical Exam Vitals reviewed. Constitutional: Appearance: Normal appearance. HENT: Head: Normocephalic and atraumatic. Right Ear: Tympanic membrane, ear canal and external ear normal. Left Ear: Tympanic membrane, ear canal and external ear normal. Nose: Congestion present. Mouth/Throat: Mouth: Mucous membranes are moist. Pharynx: Oropharynx is clear. Cardiovascular: Rate and Rhythm: Normal rate and regular rhythm. Heart sounds: Normal heart sounds. Pulmonary: Effort: Pulmonary effort is normal. Breath sounds: Normal breath sounds. Musculoskeletal: Cervical back: Neck supple. Skin: General: Skin is warm and dry. Findings: No rash. Neurological: General: No focal deficit present. Mental Status: She is alert and oriented to person, place, and time. Assessment and Plan ASSESSMENT/PLAN: 1. Viral URI - ICD9: 465.9, ICD10: J06.9 - Discussed viral etiology and rationale for treatment. - Alere Strep Test neg, no culture pending - Symptomatic treatment with prn analgesia - Supportive care with fluids and rest - The patient may also use OTC cough and cold meds as needed. - Follow up in 3-5 days if symptoms persist or sooner if worsening of symptoms - STREP A MOLECULAR (POC) Gela Mejía PA-C [facility] 09-09-2022 History of Presen t illness Narrative This note was created using Edventoryriter. Subjective Sammi Murrell is a 62 year old female. HPI Patient presents with cough, sore throat, postnasal drip over the past 6 days. Her ear has been bothering her on the left as well. No fever. No chest pain or shortness of breath. She has tried Delsym, guaifenesin and Benadryl [id number]. No vomiting or diarrhea. Some people have been sick in her work. Review of Systems Constitutional: Negative for fever. HENT: Positive for congestion, ear pain, postnasal drip and sore throat. Negative for sinus pressure and sinus pain. Respiratory: Positive for cough. Negative for shortness of breath and wheezing. All other systems reviewed and are negative. PAST MEDICAL HISTORY Diagnosis Date Adjustment disorder with depressed mood Attention deficit disorder without mention of hyperactivity age mid [address]'s [address] 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 [START ON 10/11/2022] lisdexamfetamine (VYVANSE) 70 mg capsule Take 1 capsule by mouth once daily for 30 days. Do not start before October 11, 2022. 30 capsule 0 busPIRone (BUSPAR) 15 mg tablet Take 1 tablet by mouth three times daily. 90 tablet 2 VITAMIN B COMPLEX (B COMPLEX ORAL) Take by mouth. [START ON 09/11/2022] lisdexamfetamine (VYVANSE) 70 mg capsule Take 1 capsule by mouth once daily for 30 days. Do not start before September 11, 2022. 30 capsule 0 lisdexamfetamine (VYVANSE) 70 mg capsule Take 1 capsule by mouth once daily for 30 days. 30 capsule 0 ibuprofen (MOTRIN) 400 mg tablet Take 400 mg by mouth every 6 hours as needed. No current facility-administered medications for this visit. PAST SURGICAL HISTORY Procedure Laterality Date LAPS ABD PRTM&OMENTUM DX W/WO SPEC BR/WA SPX 1991 Laparoscopy - Dx with spastic colon TONSILLECTOMY & ADENOIDECTOMY <AGE 13 FAMILY HISTORY Problem Relation Age of Onset Hypertension Father age 40's; Prostate Cancer Father dx'd age 58, survivor; Colon Cancer Other NONE Coronary Artery Disease Other NONE Diabetes Other NONE Cataract Paternal Grandmother Social History Tobacco Use Smoking status: Never Smokeless tobacco: Never Substance Use Topics Alcohol use: No Drug use: No Objective BP 136/88 Pulse 95 Temp 36.7 C (98.1 F) (Tympanic) Resp 16 Wt 60.1 kg (132 lb 6.4 oz) LMP 03/05/2010 SpO2 97% BMI 20.13 kg/m Physical Exam Vitals reviewed. Constitutional: Appearance: Normal appearance. HENT: Head: Normocephalic and atraumatic. Right Ear: Tympanic membrane, ear canal and external ear normal. Left Ear: Tympanic membrane, ear canal and external ear normal. Nose: Congestion present. Mouth/Throat: Mouth: Mucous membranes are moist. Pharynx: Oropharynx is clear. Cardiovascular: Rate and Rhythm: Normal rate and regular rhythm. Heart sounds: Normal heart sounds. Pulmonary: Effort: Pulmonary effort is normal. Breath sounds: Normal breath sounds. Musculoskeletal: Cervical back: Neck supple. Skin: General: Skin is warm and dry. Findings: No rash. Neurological: General: No focal deficit present. Mental Status: She is alert and oriented to person, place, and time. Assessment and Plan ASSESSMENT/PLAN: 1. Viral URI - ICD9: 465.9, ICD10: J06.9 - Discussed viral etiology and rationale for treatment. - Alere Strep Test neg, no culture pending - Symptomatic treatment with prn analgesia - Supportive care with fluids and rest - The patient may also use OTC cough and cold meds as needed. - Follow up in 3-5 days if symptoms persist or sooner if worsening of symptoms - STREP A MOLECULAR (POC) Gela Mejía PA-C documented in this encounter [facility] 09-09-2022 Instructions Gela Mejía PA-C - 09/09/2022 10:55 AM EDT Zyrtec or Claritin in place of benadryl May continue Delsym Add flonase nasal spray If not improving in 5-7 days be seen again. documented in this encounter [facility] 08-11-2022 Note HNO ID: [id number] Author: Carolyn Brenner APRN.PLANNING COORDINATOR Service: ? Author Type: Nurse Specialist Type: Progress Notes Filed: 08/11/2022 10:53 AM Note Text: [facility] PROGRESS NOTE PATIENT: Sammi Langley [place] MRD: [id number] DATE: August 11, 2022 VIRTUAL VISIT PROGRESS NOTE This visit is being conducted using HIPPA compliant telecommunication system permitting interactive audio and video Proper identity has been estbablished and consent to treat is confirmed. IDENTIFYING INFORMATION: Sammi is a 62 year old female presents for follow up appointment today for treatment of ADHD and Anxiety. CHIEF COMPLAINT: My son is moving to [place] INTERIM HISTORY: Patient reports she feels tired as she started working for a [employer] company and although it is challenging she is learning to do everything the right way Says she is eating better and taking care of her health. Still suspecting her of cheating on her and says he is moving things out of the house . Still sleeping in separate bedrooms and says seeing a investigation division sergeant. Still dealing with her mother's last year and concerned about her son moving to [place]. PH Q-9 and FLACO 7 self assessment scores since last visit, scores are actually lower since last visit and says it's because she now has a good job . The patient reports no significant issues with sleep, appetite,and productivity or level of functioning. The patient denies any side effects or adverse effects from current psychiatric medications . The patient does not report change in medical history since last visit . No concerns with Substance use or abuse since last visit. SI/HI/SIB: No Suicide risk indicators assessed including recent stressors? yes Suicide Risk level: low Lab Data reviewed this visit. MENTAL STATUS EXAMINATION: Mental Status Exam: General/Sensorium: Alert and AND interactive - Appearance: Appears well groomed and stated age and Casually dressed - Eye Contact: Appropriate eye contact - Demeanor: Distractible - Motor Activity: Normal - Speech: Articulate with appropriate rhythm and volume - Mood: Denies mood concerns - Affect: Reactive and Congruent with mood - Thought Process: Linear, logical, and goal-directed - Associations: Normal - Thought Content: Appropriate with no SI/HI/AVH - Perceptions: The patient does not appear internally stimulated - Cognition: Issues with attention/concentration - Insight: Good - Judgment: Good - ROS RATING SCALES: Depression Screening: PHQ-9 All Questions 05/13/2022 08/11/2022 Little interest or pleasure in doing things 1 0 Feeling down, depressed, or hopeless 0 0 Trouble falling or staying asleep, or sleeping too much 3 1 Feeling tired or having little energy 3 1 Poor appetite or overeating 1 0 Feeling bad about yourself - or that you are a failure or have let yourself or your family down 0 0 Trouble concentrating on things, such as reading the newspaper or watching television 2 1 Moving or speaking so slowly that other people could have noticed. Or the opposite - being so fidgety or restless that you have been moving around a lot more than usual 0 0 Thoughts that you would be better off , or of hurting yourself in some way 0 0 PHQ-9 Score 10 3 FLACO-7 Screening: FLACO-7 All Questions 05/13/2022 08/11/2022 Nervous, anxious or on edge 1 1 Not being able to stop or control worrying 0 0 Worrying too much 0 - Trouble relaxing 0 0 Restless 0 0 Annoyed or irritable 1 0 Afraid something awful might happen 0 0 FLACO-7 Score 2 - VITAL SIGNS: LMP 03/05/2010 No flowsheet data found. PDMP website checked and validated. All prescriptions have been APPROPRIATELY filled. No suspicious activity was identified. 08/11/2022 by Carolyn Brenner APRN.PLANNING COORDINATOR ASSESSMENT/PLAN DIAGNOSIS: ASSESSMENT/PLAN: 1. ADHD (attention deficit hyperactivity disorder), inattentive type - ICD9: 314.00, ICD10: F90.0 (primary diagnosis) 2. Generalized anxiety disorder - ICD9: 300.02, ICD10: F41.1 Carolyn Brenner APRN.PLANNING COORDINATOR Treatment plan update: Current Outpatient Medications Medication Sig Dispense Refill [START ON 10/11/2022] lisdexamfetamine (VYVANSE) 70 mg capsule Take 1 capsule by mouth once daily for 30 days. Do not start before October 11, 2022. 30 capsule 0 [START ON 09/11/2022] lisdexamfetamine (VYVANSE) 70 mg capsule Take 1 capsule by mouth once daily for 30 days. Do not start before September 11, 2022. 30 capsule 0 lisdexamfetamine (VYVANSE) 70 mg capsule Take 1 capsule by mouth once daily for 30 days. 30 capsule 0 busPIRone (BUSPAR) 15 mg tablet Take 1 tablet by mouth three times daily. 90 tablet 2 Current Outpatient Medications Medication Sig Dispense Refill [START ON 10/11/2022] lisdexamfetamine (VYVANSE) 70 mg capsule Take 1 capsule by mouth once daily for 30 days. Do not start before October 11, 2022. 30 capsule 0 [START (more content not included)... [facility] 08-11-2022 History of Presen t illness Narrative [facility] BEH[facility]IORAL MEDICINE PROGRESS NOTE PATIENT: Sammi Murrell MRD: [id number] DATE: August 11, 2022 VIRTUAL VISIT PROGRESS NOTE This visit is being conducted using HIPPA compliant telecommunication system permitting interactive audio and video Proper identity has been estbablished and consent to treat is confirmed. IDENTIFYING INFORMATION: Sammi is a 62 year old female presents for follow up appointment today for treatment of ADHD and Anxiety. CHIEF COMPLAINT: My son is moving to [place] INTERIM HISTORY: Patient reports she feels tired as she started working for a [employer] company and although it is challenging she is learning to do everything the right way Says she is eating better and taking care of her health. Still suspecting her of cheating on her and says he is moving things out of the house . Still sleeping in separate bedrooms and says seeing a investigation division sergeant. Still dealing with her mother's last year and concerned about her son moving to [place]. PH Q-9 and FLACO 7 self assessment scores since last visit, scores are actually lower since last visit and says it's because she now has a good job . The patient reports no significant issues with sleep, appetite,and productivity or level of functioning. The patient denies any side effects or adverse effects from current psychiatric medications . The patient does not report change in medical history since last visit . No concerns with Substance use or abuse since last visit. SI/HI/SIB: No Suicide risk indicators assessed including recent stressors? yes Suicide Risk level: low Lab Data reviewed this visit. MENTAL STATUS EXAMINATION: Mental Status Exam: General/Sensorium: Alert and & interactive - Appearance: Appears well groomed and stated age and Casually dressed - Eye Contact: Appropriate eye contact - Demeanor: Distractible - Motor Activity: Normal - Speech: Articulate with appropriate rhythm and volume - Mood: Denies mood concerns - Affect: Reactive and Congruent with mood - Thought Process: Linear, logical, and goal-directed - Associations: Normal - Thought Content: Appropriate with no SI/HI/AVH - Perceptions: The patient does not appear internally stimulated - Cognition: Issues with attention/concentration - Insight: Good - Judgment: Good - ROS RATING SCALES: Depression Screening: PHQ-9 All Questions 05/13/2022 08/11/2022 Little interest or pleasure in doing things 1 0 Feeling down, depressed, or hopeless 0 0 Trouble falling or staying asleep, or sleeping too much 3 1 Feeling tired or having little energy 3 1 Poor appetite or overeating 1 0 Feeling bad about yourself - or that you are a failure or have let yourself or your family down 0 0 Trouble concentrating on things, such as reading the newspaper or watching television 2 1 Moving or speaking so slowly that other people could have noticed. Or the opposite - being so fidgety or restless that you have been moving around a lot more than usual 0 0 Thoughts that you would be better off , or of hurting yourself in some way 0 0 PHQ-9 Score 10 3 FLACO-7 Screening: FLACO-7 All Questions 05/13/2022 08/11/2022 Nervous, anxious or on edge 1 1 Not being able to stop or control worrying 0 0 Worrying too much 0 - Trouble relaxing 0 0 Restless 0 0 Annoyed or irritable 1 0 Afraid something awful might happen 0 0 FLACO-7 Score 2 - VITAL SIGNS: LMP 03/05/2010 No flowsheet data found. PDMP website checked and validated. All prescriptions have been APPROPRIATELY filled. No suspicious activity was identified. 08/11/2022 by Carolyn Brenner APRN.PLANNING COORDINATOR ASSESSMENT/PLAN DIAGNOSIS: ASSESSMENT/PLAN: 1. ADHD (attention deficit hyperactivity disorder), inattentive type - ICD9: 314.00, ICD10: F90.0 (primary diagnosis) 2. Generalized anxiety disorder - ICD9: 300.02, ICD10: F41.1 Carolyn Brenner APRN.PLANNING COORDINATOR Treatment plan update: Current Outpatient Medications Medication Sig Dispense Refill [START ON 10/11/2022] lisdexamfetamine (VYVANSE) 70 mg capsule Take 1 capsule by mouth once daily for 30 days. Do not start before October 11, 2022. 30 capsule 0 [START ON 09/11/2022] lisdexamfetamine (VYVANSE) 70 mg capsule Take 1 capsule by mouth once daily for 30 days. Do not start before September 11, 2022. 30 capsule 0 lisdexamfetamine (VYVANSE) 70 mg capsule Take 1 capsule by mouth once daily for 30 days. 30 capsule 0 busPIRone (BUSPAR) 15 mg tablet Take 1 tablet by mouth three times daily. 90 tablet 2 Current Outpatient Medications Medication Sig Dispense Refill [START ON 10/11/2022] lisdexamfetamine (VYVANSE) 70 mg capsule Take 1 capsule by mouth once daily for 30 days. Do not start before October 11, 2022. 30 capsule 0 [START ON 09/11/2022] lisdexamfetamine (VYVANSE) 70 mg capsule Take 1 capsule by mouth once daily for 30 days. Do not start before September 11, 2022. 30 capsule 0 lisdexamfetamine (VYVANSE) 70 mg capsule Take 1 capsule by mouth once daily for 30 days. 30 capsule 0 busPIRone (BUSPAR) 15 mg tablet Take 1 tablet by mouth three times daily. 90 tablet 2 VITAMIN B COMPLEX (B COMPLEX ORAL) Take by mouth. LEVOMEFOLATE CALCIUM (L-METHYLFOLATE ORAL) Take 1 mg by mouth once daily. metoclopramide HCl (REGLAN) 10 mg tablet ProOmega 120 gels - Lemon ([employer]) Take 2 caps with meals ibuprofen (MOTRIN) 400 mg tablet Take 400 mg by mouth every 6 hours as needed. No current facility-administered medications for this visit. Discussed medication dosage, usage, goals of therapy, and side effects Psycho-Education: Encouraged patient to continue to explore strengths daily and challenge negative thoughts. Monitor daily: sleep, mood, anxiety, and report any changes as soon as possible or go to the ED for any emergencies. Discussed the risk and benefit of the medication(s), and discussed importance of the chosen treatment plan. Patient acknowledges understanding of current treatment plan. Total time in direct patient contact = 25 min. Greater than 50% of the time was spent in counseling and/or coordination of care. Patient understands and agrees with the treatment plan: Yes Follow-up Appointment: In 3 months Signature: TACOS Brewster APRN No follow-ups on file. documented in this encounter [facility] 05-13-2022 History of Presen t illness Narrative [facility] BEHAVIORAL MEDICINE PROGRESS NOTE PATIENT: Sammi Murrell MRD: [id number] DATE: May 13, 2022 In person visit IDENTIFYING INFORMATION: Sammi is a 62 year old female presents for follow up appointment today. INTERIM HISTORY: CHIEF COMPLAINT: ADHD/FLACO Mental Health Assessment : Patient reports since last she has had a lot of unfortunate events happen. Patient states over the summer her mother in [place] because of complications as she was a smoker for many many years. Working on taking care of her estate and recently concerned that she is still not able to get employment. 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 The patient states that recently she is been suspecting her of cheating on her as apparently he keeps going to [place] and telling her he is going to other places including [place]. She reports that she is able to track him through global maps as he leaves his parents everywhere PH Q-9 and FLACO 7 self assessment scores since last visit, despite her current distress scores are still minimal and patient reports that she is trying to cope with her stress by being more disciplined with her sleep-wake cycle and eating more nutritious meals. The patient reports some ongoing issues with sleep, appetite,and productivity or level of functioning. The patient denies any side effects or adverse effects from current psychiatric medications . The patient does not report change in medical history since last visit . No concerns with Substance use or abuse since last visit. SI/HI/SIB: Denies Suicide risk indicators assessed including recent stressors? yes Suicide Risk level: low Lab Data reviewed this visit. MENTAL STATUS EXAMINATION: Mental Status Exam: General/Sensorium: Alert and & interactive - Appearance: Appears well groomed and stated age and Casually dressed - Eye Contact: Appropriate eye contact - Demeanor: Distractible - Motor Activity: Normal - Speech: Articulate with appropriate rhythm and volume - Mood: Denies mood concerns - Affect: Reactive and Congruent with mood - Thought Process: Linear, logical, and goal-directed - Associations: Normal - Thought Content: Appropriate with no SI/HI/AVH - Perceptions: The patient does not appear internally stimulated - Cognition: Issues with attention/concentration - Insight: Good - Judgment: Good - ROS RATING SCALES: Depression Screening: PHQ-9 All Questions 10/08/2021 01/25/2022 Little interest or pleasure in doing things 0 0 Feeling down, depressed, or hopeless 3 0 Trouble falling or staying asleep, or sleeping too much 0 1 Feeling tired or having little energy 3 3 Poor appetite or overeating 0 0 Feeling bad about yourself - or that you are a failure or have let yourself or your family down 0 0 Trouble concentrating on things, such as reading the newspaper or watching television 2 2 Moving or speaking so slowly that other people could have noticed. Or the opposite - being so fidgety or restless that you have been moving around a lot more than usual 0 0 Thoughts that you would be better off , or of hurting yourself in some way 0 0 PHQ-9 Score 8 6 FLACO-7 Screening: FLACO-7 All Questions 07/16/2021 01/25/2022 Nervous, anxious or on edge 1 1 Not being able to stop or control worrying 0 0 Worrying too much 0 0 Trouble relaxing 0 0 Restless 0 0 Annoyed or irritable 1 1 Afraid something awful might happen 0 0 FLACO-7 Score 2 2 VITAL SIGNS: LMP 03/05/2010 No flowsheet data found. PDMP website checked and validated. All prescriptions have been APPROPRIATELY filled. No suspicious activity was identified. 05/13/2022 by Carolyn Brenner APRN.PLANNING COORDINATOR ASSESSMENT/PLAN DIAGNOSIS: ASSESSMENT/PLAN: 1. ADHD (attention deficit hyperactivity disorder), inattentive type - ICD9: 314.00, ICD10: F90.0 (primary diagnosis) 2. Generalized anxiety disorder - ICD9: 300.02, ICD10: F41.1 Carolyn Brenner APRN.TACOS Treatment plan update: Vyvanse 70 mg one capsule daily Buspar 15 mg one tablet 3 times daily Current Outpatient Medications Medication Sig Dispense Refill lisdexamfetamine (VYVANSE) 70 mg capsule Take 1 capsule by mouth once daily for 30 days. Do not start before April 22, 2022. 30 capsule 0 lisdexamfetamine (VYVANSE) 70 mg capsule Take 1 capsule by mouth once daily for 30 days. Do not start before March 22, 2022. 30 capsule 0 lisdexamfetamine (VYVANSE) 70 mg capsule Take 1 capsule by mouth once daily for 30 days. Do not start before February 20, 2022. 30 capsule 0 buspirone HCl (BUSPAR ORAL) Take by mouth. VITAMIN B COMPLEX (B COMPLEX ORAL) Take by mouth. LEVOMEFOLATE CALCIUM (L-METHYLFOLATE ORAL) Take 1 mg by mouth once daily. metoclopramide HCl (REGLAN) 10 mg tablet ProOmega 120 gels - Lemon ([employer]) Take 2 caps with meals ibuprofen (MOTRIN) 400 mg tablet Take 400 mg by mouth every 6 hours as needed. No current facility-administered medications for this visit. Discussed medication dosage, usage, goals of therapy, and side effects Psycho-Education: Encouraged patient to continue to explore strengths daily and challenge negative thoughts. Monitor daily: sleep, mood, anxiety, and report any changes as soon as possible or go to the ED for any emergencies. Discussed the risk and benefit of the medication(s), and discussed importance of the chosen treatment plan. Patient acknowledges understanding of current treatment plan. Total time in direct patient contact = 35 min. Greater than 50% of the time was spent in counseling and/or coordination of care. Patient understands and agrees with the treatment plan: Yes Follow-up Appointment: In 3 months Signature: TACOS Brewster, [place] No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 criminally investigate or prosecute any alcohol or drug abuse patient.[facility] the event this information is protected by the Federal Confidentiality of Alcohol and Drug Abuse Patient Records regulations: The Federal rules restrict any use of the information to criminally investigate or prosecute any alcohol or drug abuse patient.[facility] the event this information is protected by the Federal Confidentiality of Alcohol and Drug Abuse Patient Records regulations: The Federal rules restrict any use of the information to criminally investigate or prosecute any alcohol or drug abuse patient.[facility] the event this information is protected by the Federal Confidentiality of Alcohol and Drug Abuse Patient Records regulations: The Federal rules restrict any use of the information to criminally investigate or prosecute any alcohol or drug abuse patient.[facility] the event this information is protected by the Federal Confidentiality of Alcohol and Drug Abuse Patient Records regulations: The Federal rules restrict any use of the information to criminally investigate or prosecute any alcohol or drug abuse patient.[facility] the event this information is protected by the Federal Confidentiality of Alcohol and Drug Abuse Patient Records regulations: The Federal rules restrict any use of the information to criminally investigate or prosecute any alcohol or drug abuse patient.[facility] the event this information is protected by the Federal Confidentiality of Alcohol and Drug Abuse Patient Records regulations: The Federal rules restrict any use of the information to criminally investigate or prosecute any alcohol or drug abuse patient.[facility] the event this information is protected by the Federal Confidentiality of Alcohol and Drug Abuse Patient Records regulations: The Federal rules restrict any use of the information to criminally investigate or prosecute any alcohol or drug abuse patient.[facility] the event this information is protected by the Federal Confidentiality of Alcohol and Drug Abuse Patient Records regulations: The Federal rules restrict any use of the information to criminally investigate or prosecute any alcohol or drug abuse patient.[facility] the event this information is protected by the Federal Confidentiality of Alcohol and Drug Abuse Patient Records regulations: The Federal rules restrict any use of the information to criminally investigate or prosecute any alcohol or drug abuse patient.[facility] the event this information is protected by the Federal Confidentiality of Alcohol and Drug Abuse Patient Records regulations: The Federal rules restrict any use of the information to criminally investigate or prosecute any alcohol or drug abuse patient.[facility] the event this information is protected by the Federal Confidentiality of Alcohol and Drug Abuse Patient Records regulations: The Federal rules restrict any use of the information to criminally investigate or prosecute any alcohol or drug abuse patient.[facility] Hospital[facility] the event this information is protected by the Federal Confidentiality of Alcohol and Drug Abuse Patient Records regulations: The Federal rules restrict any use of the information to criminally investigate or prosecute any alcohol or drug abuse patient.[facility] Hospital[facility] the event this information is protected by the Federal Confidentiality of Alcohol and Drug Abuse Patient Records regulations: The Federal rules restrict any use of the information to criminally investigate or prosecute any alcohol or drug abuse patient.[facility] Hospital[facility] the event this information is protected by the Federal Confidentiality of Alcohol and Drug Abuse Patient Records regulations: The Federal rules restrict any use of the information to criminally investigate or prosecute any alcohol or drug abuse patient.[facility] Hospital[facility] the event this information is protected by the Federal Confidentiality of Alcohol and Drug Abuse Patient Records regulations: The Federal rules restrict any use of the information to criminally investigate or prosecute any alcohol or drug abuse patient.[facility] Hospital[facility] the event this information is protected by the Federal Confidentiality of Alcohol and Drug Abuse Patient Records regulations: The Federal rules restrict any use of the information to criminally investigate or prosecute any alcohol or drug abuse patient.[facility] Reason for Visit (unrecogniz ed section and content) Specialty Diagnoses / Procedures Referred By Ben t Referred To Contact Psychiatry / PSYCHIATRY Diagnoses 3 month f/u mychart, confirmed [facility] office kn Procedures VIDEO PSYC/PSYL EST Carolyn Brenner, CREATIVE MANAGER.PLANNING COORDINATOR [address] [facility] [address] [place] [address] Carolyn Brenner, CREATIVE MANAGER.PLANNING COORDINATOR [address] [facility] [address] [place] [address] Referral ID Status Reason Start Date Expiration Date V isits Requested Visits Authorized [id number] Authorized 07/16/2021 05/28/2022 99 99 Reason Onset Date Comments Refill Request 01/17/2022 Reason Comments Family/Friends Consent form [facility] Reason Comments Medication Problem Vyvance Reason Comments ADD/ADHD Specialty Diagnoses / Procedures Referred By Ben burger Referred To Contact Psychiatry / PSYCHIATRY Diagnoses 3 mo. follow up. km Procedures EST PATIENT Self Carolyn Brenner, CREATIVE MANAGER.PLANNING COORDINATOR [address] [place] [address] Referral ID Status Reason Start Date Expiration Date Visits Requested Visits Authorized [id number] Authorized Financial Clearance Not Required 08/11/2022 05/28/2023 99 99 Reason Comments Pain, Throat Pt reported throat p ain x6 days, swollen glands, ear discomfort. Reason Comments Medication Problem Reason Onset Date Comments Refill Request 02/20/2023 Reason Comments Heart Problem Heart rate will go u p to 120 resting everyday and gets heart pressure Reason Comments Results Reason Comments Results Holter Monitor Care Teams (unrecognized sec tion and content) Stitch Bonding Machine Operator Relationship Specialty Start Date End Date Yarely Tolentino, CREATIVE MANAGER.DISPATCH MACHINE RUNNER [address] [place] [address] PCP - General Family Medicine 03/16/23 Stitch Bonding Machine Operator Relationship Specialty Start Date End Date Yarely Tolentino, CREATIVE MANAGER.DISPATCH MACHINE RUNNER [address] [place] [address] PCP - General Family Medicine 03/16/23 Stitch Bonding Machine Operator Relationship Specialty Start Date End Date Yarely Tolentino, CREATIVE MANAGER.DISPATCH MACHINE RUNNER [address] [place], [place] [id number] PCP - General Family Medicine 03/16/23 Stitch Bonding Machine Operator Relationship Specialty Start Date End Date Yarely Tolentino, CREATIVE MANAGER.DISPATCH MACHINE RUNNER [address] [place], [place] [id number] PCP - General Family Medicine 03/16/23 FOR RECORDS PERTAINING TO PATIENTS WHO ARE OR HAVE BEEN ENROLLED IN A CHEMICAL DEPENDENCY/SUBSTANCEABUSE PROGRAM, SOME INFORMATION MAY BE OMITTED. This clinical summary was aggregated from multiple sources. Caution should be exercised in using it in the provision of clinical care. This summary normalizes information from multiple sources, and as a consequence, information in this document may materially change the coding, format and clinical context of patient data. In addition, data may be omitted in some cases. CLINICAL DECISIONS SHOULD BE BASED ON THE PRIMARY CLINICAL RECORDS. [facility] [employer] [facility]. provides no warranty or guarantee of the accuracy or completeness of information in this document.
[2023-06-18 00:54] LABS: Troponin-I HS 5 pg/mL (3.0-54.0)
[2023-06-18 02:04] VITALS: BP 139/87; PULSE 85; RESP 16; O2SAT 98
[2023-06-18 02:44] VITALS: BP 129/79; PULSE 79; RESP 16; TEMP 36.6; O2SAT 98
--- NOTE | 2023-06-18 02:45 | NURSING ---
Pt asked to sit at side of bed and walk. Pt moved self to side of bed and then stated she was unable to walk. Pt the assisted to stand. Pt able to stand independently. ASked to walk in solitario, refused to try. 2nd rn in room. Pt refused dc instructions. Security at bedside. Pt escorted out of room and to waiting room. Pt has phone to call for ride. Pt refused to have nursing staff call father for ride.
--- NOTE | 2023-06-18 02:45 | ED.RN ---
This nurse called to room by DONITA Bliss. Pt is refusing to ambulate. Discussion with pt about her ability to walk. Pt continuously states she cannot walk. Assisted pt in standing and pt is able to take steps on her own. Informed pt she was being discharged and she needed to go to the waiting room to call for a ride. Pt is yelling and stating she cannot walk even though she is taking steps and bearing weight. Escorted to waiting room by this RN and DONITA Bliss. Offered to call pt's family or friends for a ride and she refuses. Also refuses discharge instructions. Later checked on pt in waiting room and she was curled up with her coat and resting comfortably with eyes closed.
== END 2023-06-18 03:56 | disposition home or self-care (01) ==
PROVIDERS: Emergency Provider Emergency Medicine; PCP Nurse Practitioner Family; Visit Provider Emergency Medicine
DX: R11.0 Nausea (principal); T40.715A Adverse effect of cannabis, initial encounter
CPT/HCPCS: 80048; 84484; 85025; 93005; 96361; 96374; 99285; J7030; A4216; J2405

== ENCOUNTER 2024-04-06 14:04 | Inpatient (IN) | payer MEDICAID, SELFPAY ==
[2024-04-06] VITALS (7 sets, daily range): BP systolic 116–175; BP diastolic 68–137; PULSE 81–86; RESP 16–20; TEMP 36.4–36.6; O2SAT 97–99; BMI 21.0
--- NOTE | 2024-04-06 14:28 | CT_ITS ---
STUDY: CT LUMBAR SPINE WITHOUT CONTRAST REASON FOR EXAM: Female, 63 years old. trauma pt fell 6ft off a ladder. no loc, did not hit head, landed on 2 feet. pt is not on thinner. just c/o of left ankle pain RADIATION DOSAGE (If Supplied By Facility): CTDIvol = ( 13.82 ) mGy, DLP = ( 477.45 ) mGycm TECHNIQUE: The patient was scanned in a multi detector CT scanner. High resolution transaxial imaging was performed. Images were obtained from to . Sagittal and coronal images were reconstructed. Individualized dose optimization techniques were used for this CT. COMPARISON: None FINDINGS: Normal lumbar lordosis. Mild levoscoliosis is present with mild asymmetric disc space narrowing at multiple levels. No demonstrated fracture or compression deformity. No lytic or blastic lesions are present. No pars interarticularis defects are seen. No visualized fracture of the visualized components of the sacrum or iliac wings. Benign bone island in the right sacral ala. No abnormal widening of the SI joints. L1-2: Normal endplates. Normal disc height and morphology. Normal bilateral facet joints. Normal central canal and bilateral lateral recesses. Normal bilateral intervertebral neural foramina. L2-3: Diffuse disc bulging. Mild asymmetric disc space narrowing. Mild spondylosis. Normal bilateral facet joints. Normal central canal and bilateral lateral recesses. Normal bilateral intervertebral neural foramina. L3-4: Diffuse disc bulging. Mild asymmetric disc space narrowing. Mild spondylosis. Normal bilateral facet joints. Normal central canal and bilateral lateral recesses. Normal bilateral intervertebral neural foramina. L4-5: Moderate disc space narrowing with a diffuse disc bulge. Anterolisthesis of L4 and L5 of 2 to 3 mm. Mild intradiscal gas. Mild to moderate bilateral foraminal stenosis with nerve root impingement and moderate facet joint hypertrophy. Normal central canal and bilateral lateral recesses. L5-S1: Mild intradiscal gas and endplate sclerosis. Moderate disc space narrowing with a diffuse disc bulge. Mild to moderate facet joint hypertrophy. Moderate left foraminal stenosis with nerve root compression. Normal central canal and bilateral lateral recesses. Normal visualized paraspinous soft tissue structures. CT/Spine Lumbar without Contrast IMPRESSION: Multilevel degenerative changes, as described above. Electronically Signed: Dewayne Montes MD at 15:41 EST ,
--- NOTE | 2024-04-06 14:33 | EX.ED.GENINJ ---
HPI History of Present Illness Chief Complaint: Fall Informant: patient and EMS Narrative Narrative: 63-year-old female presenting to the emergency room following fall from ladder. Patient was outside painting her house when the ladder moved and she jumped off the ladder to avoid falling. She landed on dirt. She states she landed on her feet. She notes pain to the bilateral ankles as well as pain in the right low back. No loss of consciousness. She does not take any blood thinners. Patient denies any current knee pain or hip pain. Pain is worse with movement and sitting up. [facility] Medical History (Updated 04/06/24 @ 15:[address] Alejo Ivy DO) Depression ADHD Home Medications ?Medication ?Instructions ?Recorded ?Last Taken ?Type buspirone 15 mg tablet 15 mg PO TID 06/17/23 Unknown History diphenhydramine HCl 25 mg capsule 25 mg PO Q8H PRN allergy symptoms 06/17/23 Unknown History (Benadryl) ibuprofen 200 mg capsule 400 mg PO Q8H 06/17/23 Unknown History lisdexamfetamine 70 mg capsule 70 mg PO DAILY 06/17/23 Unknown History Allergy/AdvReac Type Severity Reaction Status Date / Time acetaminophen (From Percocet) Allergy PT UNSURE Verified 04/06/24 14:12 OF REACTION clarithromycin (From Biaxin) Allergy Nausea/Vom/ Verified 04/06/24 14:12 Diarrhea famotidine (From Pepcid) Allergy PT UNSURE Verified 04/06/24 14:12 OF REACTION oxycodone (From Percocet) Allergy PT UNSURE Verified 04/06/24 14:12 OF REACTION Penicillins Allergy Rash Verified 04/06/24 14:12 Surgical History History of tonsillectomy Social History household members: none housing: house current occupational status: employed Smoking Status: Never smoker ROS ROS ED Constitutional Constitutional ED: Denies chills or weight loss Eyes Eyes: Denies change in vision or diplopia ENT ENT ED: Denies ear pain, rhinorrhea or sore throat Cardiovascular Cardiovascular: Denies chest pain, orthopnea, palpitations or racing heartbeat Respiratory/Chest Respiratory/Chest: Denies cough, dyspnea or orthopnea Gastrointestinal Gastrointestinal: Denies abdominal pain, diarrhea, nausea or vomiting Genitourinary Genitourinary ED: Denies dysuria, hematuria or urinary frequency Musculoskeletal Musculoskeletal: Reports back pain and other Details: See history of present illness ; Denies arthralgias or myalgias Integumentary Reports other; Denies abscess or rash Neurologic Neurologic: Denies headache(s) or weakness Psychiatric Psychiatric: Denies anxiety, depression, suicidal ideation or suicidal thoughts Endocrine Endocrinology: Denies polydipsia, polyphagia or polyuria Allergic/Immunologic Allergic/Immunologic ED: Denies mouth swelling, tongue swelling or urticaria EXAM Physical Exam Const Vital Signs: 04/06/24 14:05 04/06/24 14:13 Temperature 97.6 F L Temperature Source Temporal Pulse Rate 85 Respiratory Rate 20 H Respiratory Effort Normal Non-Labored Respiratory Depth Normal Respiratory Pattern Normal Blood Pressure 175/110 H Blood Pressure Mean 131 Pulse Ox 98 Oxygen Delivery Method Room Air Room Air Positive well nourished and well developed General Appearance ED: well developed and NAD HEENT Reports normocephalic, head/scalp atraumatic and moist mucous membranes Eyes PERRL and EOMs intact bilaterally Neck no lymphadenopathy, supple and no JVD Resp normal respiratory effort and clear to auscultation bilaterally Cardio regular rate, regular rhythm and no murmurs GI normal to inspection, nondistended, normoactive bowel sounds and non-tender Palpation: soft Back/Spine no CVA tenderness and normal ROM Back/Spine Narrative: Patient has painful range of motion. She notes tenderness to palpation of the lower right paralumbar tissues. No tenderness over the greater trochanter. No knee swelling or trauma noted. She has bilateral diffuse ankle tenderness. She notes pain over the plantar surface of the calcaneus bilateral. Mild swelling is noted no breaks in skin. Neurovascular intact. Extremity normal to inspection General Extremety ED: Negative for edema General Extremity: Negative for edema Neuro oriented x3 and CN's II-XII intact bilaterally Sensorium / Orientation: alert Motor Exam: strength 5/5 throughout Psych mental status grossly normal Mood & Affect: Negative for depressed or tearful Skin no rashes or lesions noted and no wounds MDM MDM MDM Narrative Medical decision making narrative: Differential diagnosis includes lumbar myofascial strain fracture, pelvis hip fracture lower extremity fractures foot fractures My independent interpretation the plain films of the bilateral feet is comminuted bilateral calcaneal fractures. My independent interpretation of the bilateral ankles is an acute lateral malleolus fracture on the right. CT lumbar spine does not demonstrate acute lumbar fractures. Patient initially received hydrocodone for pain and morphine as needed after that. Formal CTs of the bilateral ankle and feet were obtained. Patient was placed in a Ortho-Glass posterior well-padded splint. Neurovascular intact pre and post application I spoke with podiatry as well as the hospitalist. Patient was advised that she will most likely be nonambulatory for a significant period of time and would probably require eventual placement at rehab facility. I asked social work to visit with the patient as this is going to greatly impact her life and she currently is going through divorce and her only family as her son who lives out of state in [facility]. History & Record Review Discussion w/independent historian: EMS personnel and Patient Lab Data Attestation: I reviewed the patient's lab results. Radiography Diagnostic Testing: Clinical Impression(s) from Imaging Studies Lumbar Spine CT 04/06/24 14:28 IMPRESSION: Multilevel degenerative changes, as described above. Electronically Signed: Dewayne Montes MD at 15:41 EST , Ankle X-Ray 04/06/24 14:55 IMPRESSION: 1. Acute minimally displaced fracture of the lateral malleolus Electronically Signed: Dewayne Montes MD at 15:50 EST Reading Location ID and State: [facility] / [place] , Service support , Ankle X-Ray 04/06/24 14:55 IMPRESSION: 1. An acute comminuted fracture of the body and posterior process of the calcaneus is present with moderate loss of calcaneal height and mild displacement. The surrounding soft tissues are swollen. There are no additional fractures seen in the mid or forefoot. Normal talus and tarsal bones. Electronically Signed: Dewayne Montes MD at 16:02 EST Reading Location ID and State: [facility] / [place] , Service support , Foot X-Ray 04/06/24 14:55 IMPRESSION: 1. Acute comminuted fracture of the calcaneus Electronically Signed: Dewayne Montes MD at 15:59 EST Reading Location ID and State: [facility] / [place] , Service support , Foot X-Ray 04/06/24 14:55 IMPRESSION: Comminuted fracture of the calcaneus Electronically Signed: Dewayne Montes MD at 16:01 EST Reading Location ID and State: [facility] / [place] , Service support , Management Discussion w/another healthcare provider: Hospitalist (Dr. Mar) and Front End Mechanic (Dr. Kennedy) Discharge Plan Triage Chief Complaint: Fall ED Provider: Alejo Ivy Dx/Rx/DC Orders Clinical Impression: Fall, Bilateral calcaneal fractures, Ankle fracture, lateral malleolus, closed, Acute lumbar myofascial strain Prescriptions: No Action buspirone 15 mg tablet 15 mg PO TID Patient Comments: Take 1 tablet by mouth three times a day. lisdexamfetamine 70 mg capsule 70 mg PO DAILY Patient Comments: TAKE 1 CAPSULE BY MOUTH ONCE DAILY ibuprofen 200 mg capsule 400 mg PO Q8H diphenhydramine HCl [Benadryl] 25 mg capsule 25 mg PO Q8H PRN (Reason: allergy symptoms) Primary Care Provider: Yarely Tolentino NP Referrals: Yarely Tolentino ED TRANSPORTER, ED TRANSPORTER-C [Primary Care Provider] - Print Language: Djib[place]ian
[2024-04-06] MEDS: HYDROcodone Bitartrate/Apap 5/325 Tablet PO (14:35)
--- NOTE | 2024-04-06 14:55 | RAD_ITS ---
STUDY: X-RAY - LEFT FOOT CLINICAL: Female, 63 years old. INJURY TECHNIQUE: 3 view(s) of the foot. COMPARISON: None. FINDINGS: An acute comminuted fracture of the body and posterior process of the calcaneus is present with moderate loss of calcaneal height and mild displacement. The surrounding soft tissues are swollen. There are no additional fractures seen in the mid or forefoot. Normal talus and tarsal bones. Normal visualized subtalar, talonavicular, calcaneocuboid, tarsal and tarsometatarsal articulations. Normal metatarsi. Normal metatarsophalangeal joint of the great toe. Normal tibial and fibular sesamoid bones. Normal interphalangeal joint of the great toe. Normal phalanges of the great toe. Normal second through fifth metatarsophalangeal joints. Normal interphalangeal joints and phalanges of the lesser toes. LEFT FOOT RAD/Foot min 3 Views IMPRESSION: Comminuted fracture of the calcaneus Electronically Signed: Dewayne Montes MD at 16:01 EST ,
--- NOTE | 2024-04-06 14:55 | RAD_ITS ---
STUDY: X-RAY - RIGHT FOOT CLINICAL: Female, 63 years old. injury TECHNIQUE: 3 view(s) of the foot. COMPARISON: None. FINDINGS: Acute impaction injury originating at the proximal surface of the calcaneal body with a comminuted fracture extending into the central aspect of the bone and through the anterior process. There is also slight loss of calcaneal body height and mild displacement. No additional acute fractures are seen. Normal visualized subtalar, talonavicular, calcaneocuboid, tarsal and tarsometatarsal articulations. Normal metatarsi. Normal metatarsophalangeal joint of the great toe. Normal tibial and fibular sesamoid bones. Normal interphalangeal joint of the great toe. Normal phalanges of the great toe. Normal second through fifth metatarsophalangeal joints. Normal interphalangeal joints and phalanges of the lesser toes. Soft tissue swelling is present at the fracture site. RAD/Foot min 3 Views IMPRESSION: 1. Acute comminuted fracture of the calcaneus Electronically Signed: Dewayne Montes MD at 15:59 EST ,
--- NOTE | 2024-04-06 14:55 | RAD_ITS ---
STUDY: X-RAY - RIGHT ANKLE REASON FOR EXAM: Female, 63 years old. ankle injury TECHNIQUE: 3 view(s) of the ankle. COMPARISON: None. FINDINGS: An acute oblique corner fracture with minimal displacement is present at the lateral and most distal aspect of the lateral malleolus with overlying soft tissue swelling. Normal fibular shaft. Normal distal tibia. Normal medial malleoli. Normal tibiotalar articulation and ankle mortise. Normal visualized talus and calcaneus. The visualized subtalar, talonavicular, calcaneocuboid and tarsal articulations are normal. There is no demonstrated fracture. RAD/Ankle min 3 Views IMPRESSION: 1. Acute minimally displaced fracture of the lateral malleolus Electronically Signed: Dewayne Montes MD at 15:50 EST ,
--- NOTE | 2024-04-06 14:55 | RAD_ITS ---
STUDY: X-RAY - LEFT ANKLE REASON FOR EXAM: Female, 63 years old. injury TECHNIQUE: 3 view(s) of the ankle. COMPARISON: [X-ray dated April 06, 2024. FINDINGS: An acute comminuted fracture of the body and posterior process of the calcaneus is present with moderate loss of calcaneal height and mild displacement. The surrounding soft tissues are swollen. There are no additional fractures seen in the mid or forefoot. Normal talus and tarsal bones. Normal visualized distal tibia and fibula. Normal medial and lateral malleoli. Normal tibiotalar articulation and ankle mortise. The visualized subtalar, talonavicular, calcaneocuboid and tarsal articulations are normal. RAD/Ankle min 3 Views IMPRESSION: 1. An acute comminuted fracture of the body and posterior process of the calcaneus is present with moderate loss of calcaneal height and mild displacement. The surrounding soft tissues are swollen. There are no additional fractures seen in the mid or forefoot. Normal talus and tarsal bones. Electronically Signed: Dewayne Montes MD at 16:02 EST ,
--- NOTE | 2024-04-06 15:47 | CT_ITS ---
CT RIGHT LOWER EXTREMITY WITH 3-D IMAGING CLINICAL INDICATION: calcaneous fracture TECHNIQUE: Axial CT images of the RIGHT lower extremity was performed IV contrast material. Coronal and sagittal reformats were provided. The protocol utilizes one or more of the following dose reduction techniques: automated exposure control, adjustment of mA and/or kV according to patient size,and/or use of iterative reconstruction technique. RADIATION DOSAGE (If Supplied By Facility): CTDIvol = ( 15.35 ) mGy, DLP = ( 976.17 ) mGycm COMPARISON: FINDINGS: Bones: Comminuted fracture at the tip of the lateral malleolus. Comminuted fracture of the calcaneus with fracture lines extending to the posterior subtalar articular surface and central depressed fragments. Fracture lines also extend to the inferior cortical surface. Fracture lines extend anteriorly into the calcaneal cuboid articular articulation and through the sustentaculum taryn. Soft Tissues: Diffuse subcutaneous edema. CT/Extremity Lower without Contra IMPRESSION: Comminuted calcaneal fracture. Comminuted fracture of the lateral malleolus tip. Electronically Signed: Raza Elmore DO at 17:22 EST ,
--- NOTE | 2024-04-06 15:47 | CT_ITS ---
CT LEFT LOWER EXTREMITY WITH 3-D IMAGING CLINICAL INDICATION: calcaneous fracture TECHNIQUE: Axial CT images of the LEFT lower extremity was performed IV contrast material. Coronal and sagittal reformats were provided. The protocol utilizes one or more of the following dose reduction techniques: automated exposure control, adjustment of mA and/or kV according to patient size,and/or use of iterative reconstruction technique. RADIATION DOSAGE (If Supplied By Facility): CTDIvol = ( 15.35 ) mGy, DLP = ( 976.17 ) mGycm COMPARISON: FINDINGS: Bones: There is a severely comminuted fracture involving the calcaneus with fracture lines extending to the posterior subtalar articular surface and central depressed bony fragments. Fracture lines also extend through the inferior calcaneal cortex. No lytic or blastic osseous masses. Soft Tissues: Subcutaneous edema. CT/Extremity Lower without Contra IMPRESSION: Severely comminuted calcaneal fracture as noted. Electronically Signed: Raza Elmore DO at 17:15 EST ,
--- NOTE | 2024-04-06 16:10 | PCM.HP.STD ---
HPI - General General Date of Admission: 04/06/24 Date of Service: 04/06/24 Chief Complaint: Fall HPI Narrative MELSISA RIVERA, is a 63 F with past medical history of anxiety and ADHD who presents to the ED following a fall from the ladder. She was painting her house and she had to jump off the ladder to avoid falling, she landed on the dirt on her feet and has been having bilateral ankle pain since then. No loss of consciousness, no head injury, no blood thinners, no knee or hip pain. Pain is worse with movement, and associated with swelling. Left foot x-ray showed an acute comminuted fracture of the body and posterior breath of the calcaneus with loss of calcaneal height and mild displacement. There was also calcaneal fracture of the right foot. She lives by herself, will have difficulty immobilization, she is being admitted for helping acuities of daily living, and for rehabilitation [facility] Medical History (Updated 04/06/24 @ 15:[address] Alejo Ivy DO) Depression ADHD Home Medications ?Medication ?Instructions ?Recorded ?Last Taken ?Type buspirone 15 mg tablet 15 mg PO TID 06/17/23 Unknown History diphenhydramine HCl 25 mg capsule 25 mg PO Q8H PRN allergy symptoms 06/17/23 Unknown History (Benadryl) ibuprofen 200 mg capsule 400 mg PO Q8H 06/17/23 Unknown History lisdexamfetamine 70 mg capsule 70 mg PO DAILY 06/17/23 Unknown History alprazolam 0.5 mg tablet (Xanax) 0.5 mg PO DAILY 04/06/24 Unknown History Allergy/AdvReac Type Severity Reaction Status Date / Time acetaminophen (From Percocet) Allergy PT UNSURE Verified 04/06/24 14:12 OF REACTION clarithromycin (From Biaxin) Allergy Nausea/Vom/ Verified 04/06/24 14:12 Diarrhea famotidine (From Pepcid) Allergy PT UNSURE Verified 04/06/24 14:12 OF REACTION oxycodone (From Percocet) Allergy PT UNSURE Verified 04/06/24 14:12 OF REACTION Penicillins Allergy Rash Verified 04/06/24 14:12 Surgical History History of tonsillectomy Social History household members: none housing: house current occupational status: employed Smoking Status: Never smoker ROS Review of Systems ROS Unobtainable: Denies due to encephalopathy, due to endotracheal tube, due to mental condition, due to mental status or other Constitutional Constitutional: Denies anorexia, change in weight, chills, fatigue, fever(s), malaise, night sweats, weakness or other Eyes Eyes: Denies blurry vision, change in eye color, change in vision, discharge from eye(s), double vision, erythema, eye pain, loss of vision or other ENT HEENT: Denies abnormal hearing, dysphagia, ear pain, epistaxis, headache(s), hearing loss, nasal congestion, nasal discharge, post nasal drip, sinus pressure, sore throat or other Cardiovascular Cardiovascular: Denies chest pain, claudication, dyspnea on exertion, edema, lightheadedness, orthopnea, palpitations, paroxysmal nocturnal dyspnea, rapid heart rate, syncope or other Respiratory/Chest Respiratory/Chest: Denies cough, dyspnea, excessive phlegm production, hemoptysis, productive cough, shortness of breath at rest, shortness of breath with exertion, wheezing or other Gastrointestinal Gastrointestinal: Denies abdominal pain, coffee ground emesis, constipation, diarrhea, dyspepsia, hematemesis, hematochezia, loose stools, melena, nausea, vomiting or other Genitourinary Genitourinary: Denies burning urination, difficulty urinating, dysuria, hematuria, nocturia, urinary frequency, urinary hesitancy, urinary incontinence, urinary urgency or other Musculoskeletal Musculoskeletal: Denies arthralgias, back pain, joint pain, joint stiffness, joint swelling, myalgias, neck pain or other Neurologic Neurologic: Denies abnormal gait, abnormal speech, confusion, disequilibrium, dizziness, focal weakness, headache(s), numbness, paresthesias, seizure-like activity, seizures, syncope, tingling, tremor(s) or other Psychiatric Psychiatric: Denies anxiety, depression, homicidal ideation, suicidal ideation or other Endocrine Endocrinology: Denies change in body appearance, cold intolerance, excessive sweating, heat intolerance, polydipsia, polyuria or other Hematologic/Lymphatic Hematologic/Lymphatic: Denies anemia, easy bleeding, easy bruising, lymphadenopathy or other Allergic/Immunologic Allergic/Immunologic: Denies rhinitis, hives, eczemia, asthma or other Vital Signs Vital Signs Vital Signs: 04/06/24 14:05 04/06/24 14:13 Temperature 97.6 F L Temperature Source Temporal Pulse Rate 85 Respiratory Rate 20 H Respiratory Effort Normal Non-Labored Respiratory Depth Normal Respiratory Pattern Normal Blood Pressure 175/110 H Blood Pressure Mean 131 Pulse Ox 98 Oxygen Delivery Method Room Air Room Air Weight Weight: 142 lb 6.698 oz Body Mass Index (BMI) 21.0 Physical Exam Const alert and oriented x3 HEENT normocephalic Eyes PERRL Resp normal respiratory effort GI normal to inspection, nondistended, normoactive bowel sounds Extremity Extremity Narrative: Swelling of the feet and toes. Both the legs were placed in a cast by ED and could not be examined Neuro oriented x3 Psych affect normal Results Medical Records Data Attestation: I reviewed the patient's medical records Lab / Micro Data 04/06/24 16:08 04/06/24 16:08 Imaging Radiology Impression Lumbar Spine CT 04/06/24 14:28 IMPRESSION: Multilevel degenerative changes, as described above. Electronically Signed: Dewayne Montes MD at 15:41 EST , Ankle X-Ray 04/06/24 14:55 IMPRESSION: 1. Acute minimally displaced fracture of the lateral malleolus Electronically Signed: Dewayne Montes MD at 15:50 EST , Ankle X-Ray 04/06/24 14:55 IMPRESSION: 1. An acute comminuted fracture of the body and posterior process of the calcaneus is present with moderate loss of calcaneal height and mild displacement. The surrounding soft tissues are swollen. There are no additional fractures seen in the mid or forefoot. Normal talus and tarsal bones. Electronically Signed: Dewayne Montes MD at 16:02 EST , Foot X-Ray 04/06/24 14:55 IMPRESSION: 1. Acute comminuted fracture of the calcaneus Electronically Signed: Dewanye Montes MD at 15:59 EST Reading Location ID and State: [facility] / [place] , Service support , Foot X-Ray 04/06/24 14:55 IMPRESSION: Comminuted fracture of the calcaneus Electronically Signed: Dewayne Montes MD at 16:01 EST Reading Location ID and State: [facility] / [place] , Service support , Assessment & Plan Assessment/Plan (1) Bilateral calcaneal fractures: PLAN: Plan 63-year-old female with a prior history of anxiety presents to the ED with concerns regarding fall from a ladder onto her feet. Based on the imaging findings she has developed bilateral calcaneal fractures. She lives by herself and does not have any social support to assist in activities of daily living. She is being admitted for further management of her pain symptoms and also to assist with rehabilitation. #Communicated calcaneal foot fracture - There are no features of compartment syndrome -Pain controlled with morphine, she is allergic to oxycodone and Dilaudid - Spoke with Dr Kennedy, Podiatry condenser tube tender. He will evaluate the patient soon. -PT/OT evaluation -Case management evaluation for need for acute rehabilitation at the time of discharge #Anxiety -Symptoms had worsened since her divorce -Continue home medications with buspirone #ADHD -Continue home lisdexamfetamine #DVT -40 mg enoxaparin prophylaxis Charges/Coding Visit Charges Inpatient E&M: 15254 Init Hosp L2
[2024-04-06 16:17] LABS: Basophil# 0.01 X10^3/uL; Basophil% 0.1 % (0-1); Hematocrit 44.4 % (37-47); Hemoglobin 14.7 g/dL (12.0-15.0); Lymphocyte % 16.1 % (19-41); Mean Corp Hgb Conc 33.1 g/dL (32-36); Mean Corpuscular Hgb 30.4 pg (27.0-32.0); Mean Corpuscular Volume 91.9 fL (81-99); Mean Platelet Vol. 8.6 fl (6.2-12.0); Monocyte# 0.67 X10^3/uL; Monocyte% 9.8 % (0-10); NRBC Flagged by Analyzer 0 % (0-5); Neutrophil # 5.01 X10^3/uL (2.7-7.7); Neutrophil % 73.6 % (47-70); Platelet Count 271 K/mm3 (150-450); RBC Distribution Width CV 13.3 % (11.6-14.6); RBC Distribution Width SD 44.9 fl (35.1-43.9); Red Blood Count 4.83 M/mm3 (4.2-5.4); White Blood Count 6.8 K/mm3 (4.4-11.0)
[2024-04-06 16:44] LABS: Anion Gap 6 (5-15); BUN 21 mg/dL (7-18); BUN/Creat Ratio 31.8 RATIO (10-20); Calcium,Total 9.2 mg/dL (8.5-10.1); Chloride 110 mmol/L (98-107); Creatinine, Serum 0.66 mg/dL (0.55-1.02); EST Glomerular Filtration Rate 96 mL/min (>60); Est Glom Filt Rate - Afr Amer 116 mL/min (>60); Estimated Creatinine Clearance 90.13 ml/min; Glucose 112 mg/dL (74-106); Potassium 4.7 mmol/L (3.5-5.1); Sodium Level 138 mmol/L (136-145)
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
[2024-04-06] MEDS: Morphine 2 MG/ML Syringe IV ×2 (18:25→21:53)
[2024-04-06] MEDS: Ondansetron 4 MG/2 ML Vial IV (18:38)
--- NOTE | 2024-04-06 19:29 | CON.PCM_ITS ---
Assessment & Plan Assessment/Plan (1) Ankle fracture, lateral malleolus, closed: QUALIFIERS: Encounter type: initial encounter Fracture alignment: nondisplaced Laterality: right Qualified Code(s): S82.64XA - Nondisplaced fracture of lateral malleolus of right fibula, initial encounter for closed fracture PLAN: no surgery needed here. avulsion of distal fibula, normal ankle mortise right side (2) Bilateral calcaneal fractures: QUALIFIERS: Encounter type: initial encounter Fracture type: c losed Qualified Code(s): S92.001A - Unspecified fracture of right calcaneus, initial encounter for closed fracture; S92.002A - Unspecified fracture of left calcaneus, initial encounter for closed fracture PLAN: will need ORIF bilateral calcaneus. Likely needs to go to rehab facility but she wants to go home with help. I consulted OT to evaluate and discuss with her. She should follow up with me in one week. I evaluated her for any emergent treatment, theres no compartment syndrome or skin compromise currently. HPI Consult Data Date of Consult: 04/06/24 HPI Narrative Reason for Consultation: pt came through ER. bilateral calc fracture HPI Narrative: MELISSA RIVERA, is a 63 F who presents [facility] Medical History (Updated 04/06/24 @ 19:[address] Wolfgang Kennedy, DPM) Depression ADHD Home Medications ?Medication ?Instructions ?Recorded ?Last Taken ?Type buspirone 15 mg tablet 15 mg PO TID 06/17/23 Unknown History diphenhydramine HCl 25 mg capsule 25 mg PO Q8H PRN allergy symptoms 06/17/23 Unknown History (Benadryl) ibuprofen 200 mg capsule 400 mg PO Q8H 06/17/23 Unknown History lisdexamfetamine 70 mg capsule 70 mg PO DAILY 06/17/23 Unknown History alprazolam 0.5 mg tablet (Xanax) 0.5 mg PO DAILY 04/06/24 Unknown History Allergy/AdvReac Type Severity Reaction Status Date / Time acetaminophen (From Percocet) Allergy PT UNSURE Verified 04/06/24 14:12 OF REACTION clarithromycin (From Biaxin) Allergy Nausea/Vom/ Verified 04/06/24 14:12 Diarrhea famotidine (From Pepcid) Allergy PT UNSURE Verified 04/06/24 14:12 OF REACTION oxycodone (From Percocet) Allergy PT UNSURE Verified 04/06/24 14:12 OF REACTION Penicillins Allergy Rash Verified 04/06/24 14:12 Surgical History History of tonsillectomy Social History household members: none housing: house current occupational status: employed Smoking Status: Never smoker Physical Exam Const alert and oriented x3 General Appearance: cooperative, comfortable and well developed Orientation / Consciousness: awake, oriented to person, oriented to place and oriented to time Extremity Peripheral Pulses: Yes pulses 2+ throughout Right Lower Extremity: foot and digits Positive for inspection (normal sensation, no contraction, no sign of compartment syndrome, no calf pain, swelling and bruising, no blisters, no blanching), palpation (painful heel), neurovascular exam (normal neurovasc, no compromise) and tendon exam (normal tendon function of all groups/guarded) Left Lower Extremity: foot and digits Positive for inspection (bruising and swelling without skin compromise, no blanching or blisters), palpation (painful heel, no calf pain), neurovascular exam (normal neurovasc, no compromise, no compartment syndrome), tendon exam (all tendon function guarded but normal) and other Neuro oriented x3 Sensorium / Orientation: awake, alert, oriented to person, oriented to place and oriented to time Lab / Micro Data 04/06/24 16:08 04/06/24 16:08 Labs: Laboratory Results - last 24 hr 04/06/24 16:08: WBC 6.8, RBC 4.83, Hgb 14.7, Hct 44.4, MCV 91.9, MCH 30.4, MCHC 33.1, RDW Std Deviation 44.9 H, RDW Coeff of Ermel[place] 13.3, Plt Count 271, MPV 8.6, Immature Gran % (Auto) 0.400, Neut % (Auto) 73.6 H, Lymph % (Auto) 16.1 L, Gaines % (Auto) 9.8, Eos % (Auto) 0.0, Baso % (Auto) 0.1, Absolute Neuts (auto) 5.0, Absolute Lymphs (auto) 1.10, Nucleated RBC % 0, Sodium 138, Potassium 4.7, C hloride 110 H, Carbon Dioxide 23.0, Anion Gap 6, BUN 21 H, Creatinine 0.66, Estim Creat Clear Calc 90.13, Est GFR (MDRD) Af Amer 116, Est GFR (MDRD) Non-Af 96, BUN/Creatinine Ratio 31.8 H, Glucose 112 H, Calcium 9.2 Imaging Radiology Impression Lumbar Spine CT 04/06/24 14:28 IMPRESSION: Multilevel degenerative changes, as described above. Electronically Signed: Dewayne Montes MD at 15:41 EST Reading Location ID and State: [address] [place] [address] , Service support , Ankle X-Ray 04/06/24 14:55 IMPRESSION: 1. Acute minimally displaced fracture of the lateral malleolus Electronically Signed: Dewayne Montes MD at 15:50 EST Reading Location ID and State: [address] [place] [address] , Service support , Ankle X-Ray 04/06/24 14:55 IMPRESSION: 1. An acute comminuted fracture of the body and posterior process of the calcaneus is present with moderate loss of calcaneal height and mild displacement. The surrounding soft tissues are swollen. There are no additional fractures seen in the mid or forefoot. Normal talus and tarsal bones. Electronically Signed: Dewayne Montes MD at 16:02 EST Reading Location ID and State: [address] [place] [address] , Service support , Foot X-Ray 04/06/24 14:55 IMPRESSION: 1. Acute comminuted fracture of the calcaneus Electronically Signed: Dewayne Montes MD at 15:59 EST Reading Location ID and State: [address] [place] [address] , Service support , Foot X-Ray 04/06/24 14:55 IMPRESSION: Comminuted fracture of the calcaneus Electronically Signed: Dewayne Montes MD at 16:01 EST , Lower Extremity CT 04/06/24 15:47 IMPRESSION: Comminuted calcaneal fracture. Comminuted fracture of the lateral malleolus tip. Electronically Signed: Raza Elmore DO at 17:22 EST , Lower Extremity CT 04/06/24 15:47 IMPRESSION: Severely comminuted calcaneal fracture as noted. Electronically Signed: Raza Elmore DO at 17:15 EST ,
[2024-04-06] MEDS: busPIRone 15 MG TABLET PO (21:51)
[2024-04-06] MEDS: 0.9% Saline Lock 10 ML Syringe IV ×2 (21:52→23:48)
[2024-04-06] MEDS: HYDROmorphone 0.5 MG/0.5 ML SYRINGE IV (23:47)
[2024-04-07 04:30] VITALS: BP 127/77; PULSE 74; RESP 14; TEMP 36.2; O2SAT 96
[2024-04-07] MEDS: HYDROcodone Bitartrate/Apap 5/325 Tablet PO ×3 (04:31→20:01)
[2024-04-07 05:31] LABS: Absolute Lymphocyte Count 0.89 X10^3/uL (0.83-4.51); Absolute Neutrophil Count 3.8 X10^3/uL (2.0-7.7); Hematocrit 39.8 % (37-47); Hemoglobin 13.2 g/dL (12.0-15.0); Lymphocyte # 0.89 X10^3/ul (0.83-4.51); Lymphocyte % 16.3 % (19-41); Mean Corp Hgb Conc 33.2 g/dL (32-36); Mean Corpuscular Hgb 30.6 pg (27.0-32.0); Mean Corpuscular Volume 92.1 fL (81-99); Mean Platelet Vol. 8.6 fl (6.2-12.0); Monocyte# 0.75 X10^3/uL; Monocyte% 13.7 % (0-10); NRBC Flagged by Analyzer 0 % (0-5); Neutrophil # 3.82 X10^3/uL (2.7-7.7); Neutrophil % 69.8 % (47-70); Platelet Count 252 K/mm3 (150-450); RBC Distribution Width CV 13.5 % (11.6-14.6); RBC Distribution Width SD 45.8 fl (35.1-43.9); Red Blood Count 4.32 M/mm3 (4.2-5.4); White Blood Count 5.5 K/mm3 (4.4-11.0)
[2024-04-07 05:40] LABS: International Normalized Ratio 1.1; Prothrombin Time (Protime)PT. 13.9 SECONDS (11.7-14.9)
[2024-04-07 06:06] LABS: ALB/GLOB Ratio 1.1 RATIO (0.9-2.4); AST(SGOT) 34 U/L (15-37); Alanine Aminotransfer ALT/SGPT 43 U/L (13-56); Albumin, Serum 3.4 g/dL (3.2-5.0); Alkaline Phosphatase 105 U/L (45-117); Anion Gap 5 (5-15); BUN 15 mg/dL (7-18); BUN/Creat Ratio 23.7 RATIO (10-20); Calcium,Total 8.9 mg/dL (8.5-10.1); Chloride 102 mmol/L (98-107); Creatinine, Serum 0.63 mg/dL (0.55-1.02); EST Glomerular Filtration Rate 101 mL/min (>60); Est Glom Filt Rate - Afr Amer 122 mL/min (>60); Estimated Creatinine Clearance 94.42 ml/min; Globulin 3.1 g/dL (2.2-4.2); Glucose 118 mg/dL (74-106); Magnesium 1.9 mg/dL (1.6-2.6); Protein, Total 6.5 g/dL (6.4-8.2); Sodium Level 136 mmol/L (136-145)
[2024-04-07] MEDS: busPIRone 15 MG TABLET PO ×3 (06:22→22:20)
--- NOTE | 2024-04-07 07:26 | PN.HOSP_ITS ---
Reason for Visit Reason for Visit: Diagnoses Nondisplaced fracture of lateral malleolus of right fibula, initial encounter for closed fracture (04/06/24) Unspecified fracture of right calcaneus, initial encounter for closed fracture (04/06/24) Unspecified fracture of left calcaneus, initial encounter for closed fracture (04/06/24) Objective Data Objective Data Vital Signs: Vital Signs Temp Pulse Resp BP Pulse Ox O2 Del Method 97.2 F L 74 14 127/77 H 96 Room Air 04/07/24 04:30 04/07/24 04:30 04/07/24 04:30 04/07/24 04:30 04/07/24 04:30 04/07/24 04:30 Oxygen Delivery Method Room Air Weight: 142 lb 6.698 oz Body Mass Index (BMI) 21.0 Intake & Output: Intake and Output for Last 24 Hours 04/05/24 04/06/24 04/07/24 23:59 23:59 23:59 Intake Total 300 / 300 Balance 300 / 300 Lab / Micro Data 04/07/24 04:16 04/07/24 04:16 Labs: Laboratory Results - last 24 hr 04/06/24 16:08: WBC 6.8, RBC 4.83, Hgb 14.7, Hct 44.4, MCV 91.9, MCH 30.4, MCHC 33.1, RDW Std Deviation 44.9 H, RDW Coeff of [place]rmel[place] 13.3, Plt Count 271, MPV 8.6, Immature Gran % (Auto) 0.400, Neut % (Auto) 73.6 H, Lymph % (Auto) 16.1 L, [place] % (Auto) 9.8, Eos % (Auto) 0.0, Baso % (Auto) 0.1, Absolute Neuts (auto) 5.0, Absolute Lymphs (auto) 1.10, Nucleated RBC % 0, Sodium 138, Potassium 4.7, Chloride 110 H, Carbon Dioxide 23.0, Anion Gap 6, BUN 21 H, Creatinine 0.66, Estim Creat Clear Calc 90.13, Est GFR (MDRD) Af Amer 116, Est GFR (MDRD) Non-Af 96, BUN/Creatinine Ratio 31.8 H, Glucose 112 H, Calcium 9.2 04/07/24 04:16: WBC 5.5, RBC 4.32, Hgb 13.2, Hct 39.8, MCV 92.1, MCH 30.6, MCHC 33.2, RDW Std Deviation 45.8 H, RDW Coeff of [place] 13.5, Plt Count 252, MPV 8.6, Immature Gran % (Auto) 0.200, Neut % (Auto) 69.8, Lymph % (Auto) 16.3 L, [place] % (Auto) 13.7 H, Eos % (Auto) 0.0, Baso % (Auto) 0.0, Absolute Neuts (auto) 3.8, Absolute Lymphs (auto) 0.89, Nucleated RBC % 0, PT 13.9, INR 1.1, Sodium 136, Potassium 4.0, Chloride 102, Carbon Dioxide 29.0, Anion Gap 5, BUN 15, Creatinine 0.63, Estim Creat Clear Calc 94.42, Est GFR (MDRD) Af Amer 122, Est GFR (MDRD) Non-Af 101, BUN/Creatinine Ratio 23.7 H, Glucose 118 H, Calcium 8.9, Magnesium 1.9, Total Bilirubin 0.90, AST 34, ALT 43, Alkaline Phosphatase 105, Total Protein 6.5, Albumin 3.4, Globulin 3.1, Albumin/Globulin Ratio 1.1 Radiography Diagnostic Testing: Radiology Impression Lumbar Spine CT 04/06/24 14:28 IMPRESSION: Multilevel degenerative changes, as described above. Electronically Signed: Dewayne Montes MD at 15:41 EST Reading Location ID and State: [address] [place] [address] , Service support , Ankle X-Ray 04/06/24 14:55 IMPRESSION: 1. Acute minimally displaced fracture of the lateral malleolus Electronically Signed: Dewayne Montes MD at 15:50 EST , Ankle X-Ray 04/06/24 14:55 IMPRESSION: 1. An acute comminuted fracture of the body and posterior process of the calcaneus is present with moderate loss of calcaneal height and mild displacement. The surrounding soft tissues are swollen. There are no additional fractures seen in the mid or forefoot. Normal talus and tarsal bones. Electronically Signed: Dewayne Montes MD at 16:02 EST , Foot X-Ray 04/06/24 14:55 IMPRESSION: 1. Acute comminuted fracture of the calcaneus Electronically Signed: Dewayne Montes MD at 15:59 EST , Foot X-Ray 04/06/24 14:55 IMPRESSION: Comminuted fracture of the calcaneus Electronically Signed: Dewayne Montes MD at 16:01 EST Reading Location ID and State: [facility] / [place] , Service support , Lower Extremity CT 04/06/24 15:47 IMPRESSION: Comminuted calcaneal fracture. Comminuted fracture of the lateral malleolus tip. Electronically Signed: Raza Elmore DO at 17:22 EST , Lower Extremity CT 04/06/24 15:47 IMPRESSION: Severely comminuted calcaneal fracture as noted. Electronically Signed: Raza Elmore DO at 17:15 EST , Physical Exam Narrative General: Alert, Oriented x3, Cooperative HEENT: Atraumatic, PERRLA, EOMI, Normocephalic Oral: No Gingival or Mucosal Lesions/ Ulcerations Neck: Supple, No JVD, Negative Carotid Bruits Chest wall/Lungs: Air entry diminished in bilateral lung bases. No crepitation/rhonchi Cardiovascular: Regular rate, Regular Rhythm, Normal S1, Normal S2, No M/G/R Abdomen: Bowel Sounds Present, Soft, Non Tender, Non-Distended : No dysuria. No renal angle tenderness. No suprapubic tenderness. Extremities: No edema, Capillary Refill Less than 3 Seconds Skin: No rashes, No breakdown Musculoskeletal: No Tenderness to Palpation of Joints or Extremities Neurological: Cranial nerves II-XII grossly intact, DTR 2+/4. No acute focal neurological deficit. Psych/Mental Status: Flat affect. In mild pain Assessment & Plan Assessment/Plan (1) Bilateral calcaneal fractures: QUALIFIERS: Encounter type: initial encounter Fracture type: c losed Qualified Code(s): S92.001A - Unspecified fracture of right calcaneus, initial encounter for closed fracture; S92.002A - Unspecified fracture of left calcaneus, initial encounter for closed fracture PLAN: Plan 63-year-old female with a prior history of anxiety presents to the ED with concerns regarding fall from a ladder onto her feet. Based on the imaging findings she has developed bilateral calcaneal fractures. She lives by herself and does not have any social support to assist in activities of daily living. She is being admitted for further management of her pain symptoms and also to assist with rehabilitation. #1. Bilateral communicated calcaneal foot fracture - There are no features of compartment syndrome -Pain controlled with morphine, she is allergic to oxycodone and Dilaudid - Spoke with Dr Kennedy, Podiatry educational institution president. He will evaluate the patient soon. -PT/OT evaluation -Case management evaluation for need for acute rehabilitation at the time of discharge She did not had good pain control with Dilaudid and morphine but good response with [place] therefore [place] ordered #Anxiety -Symptoms had worsened since her divorce -Continue home medications with buspirone #ADHD -Continue home lisdexamfetamine #DVT -40 mg enoxaparin prophylaxis Mild constipation: She had bowel movement small amount yesterday. Since he is on narcotic therefore started on senna S2 tablet twice daily and MiraLAX 17 g daily
[2024-04-07 08:33] VITALS: BP 130/86; PULSE 82; RESP 16; TEMP 36.5; O2SAT 100
[2024-04-07] MEDS: Enoxaparin 40 MG/0.4 ML Syringe SC (08:41)
[2024-04-07] MEDS: HYDROmorphone 0.5 MG/0.5 ML SYRINGE IV ×2 (10:44→23:39)
[2024-04-07] MEDS: 0.9% Saline Lock 10 ML Syringe IV (10:44)
[2024-04-07] MEDS: Senna/Docusate Sodium 1 Tablet 2 TABLET PO ×2 (14:10→22:20)
[2024-04-07 14:15] VITALS: BP 132/86; PULSE 90; RESP 16; TEMP 36.6; O2SAT 97
[2024-04-07] MEDS: ALPRAZolam 0.25 MG Tablet 0.125 MG PO (15:06)
[2024-04-07 22:13] VITALS: BP 146/69; PULSE 99; RESP 16; TEMP 36.6; O2SAT 98
[2024-04-07] MEDS: ALPRAZolam 0.25 MG Tablet PO (22:20)
[2024-04-08] MEDS: HYDROcodone Bitartrate/Apap 5/325 Tablet PO (03:56)
[2024-04-08 04:00] VITALS: BP 136/82; PULSE 92; RESP 16; TEMP 36.6; O2SAT 96
[2024-04-08] MEDS: busPIRone 15 MG TABLET PO ×2 (06:28→23:23)
[2024-04-08] MEDS: Ondansetron 4 MG/2 ML Vial IV ×2 (08:37→16:15)
[2024-04-08] MEDS: 0.9% Saline Lock 10 ML Syringe IV ×3 (08:40→18:44)
--- NOTE | 2024-04-08 09:32 | CASEMGMT ---
Discharge Planning A list of SNF providers including quality and resource use data and consistent with the patient's preferred geographic region, medical needs, and insurance network was created in CarePort Guide.? This list was provided to the SW. Raiza Martel Discharge Planning Asst.
--- NOTE | 2024-04-08 10:13 | PCM.PN.HOSP ---
Subjective Subjective Doing well, no issues overnight. Was able to sleep last night Objective Data Objective Data Vital Signs: Vital Signs Temp Pulse Resp BP Pulse Ox O2 Del Method 98 F 92 16 136/82 H 96 Room Air 04/08/24 04:00 04/08/24 04:00 04/08/24 04:00 04/08/24 04:00 04/08/24 04:00 04/08/24 04:00 Oxygen Delivery Method Room Air Weight: 142 lb 6.698 oz Body Mass Index (BMI) 21.0 Intake & Output: Intake and Output for Last 24 Hours 04/07/24 04/08/24 04/09/24 03:59 03:59 03:59 Intake Total 300 / 300 Balance 300 / 300 Lab / Micro Data 04/07/24 04:16 04/07/24 04:16 Physical Exam Narrative General: Alert, Oriented x3, Cooperative, No apparent distress HEENT: Atraumatic, PERRLA, EOMI, Normocephalic Oral: Moist Mucosa Neck: Supple, No JVD Lungs: Clear to auscultation, Normal air movement, No rhonchi, No wheeze, No rales Cardiovascular: Regular rate, Regular Rhythm, Normal S1, Normal S2, No murmurs Abdomen: Soft, Non Tender, Non-Distended, No Hepato-splenomegaly Extremities: No edema, Capillary Refill Less than 3 Seconds Skin: No rashes, No breakdown Musculoskeletal: Lower extremities wrapped Neurological: No focal neurological deficits, Motor Exam 5/5 strength throughout, Sensory exam intact to light touch and pain Psych/Mental Status: Normal Affect, Appropriate Assessment & Plan Assessment/Plan (1) Bilateral calcaneal fractures: QUALIFIERS: Encounter type: initial encounter Fracture type: closed Qualified Code(s): S92.001A - Unspecified fracture of right calcaneus, initial encounter for closed fracture; S92.002A - Unspecified fracture of left calcaneus, initial encounter for closed fracture PLAN: Plan 1. Bilateral calcaneal foot fracture - There are no features of compartment syndrome -Will discontinue IV pain medication for discharge, continue with [place] and will add ibuprofen -Appreciate podiatry's assistance, no plan for immediate surgical intervention -PT/OT evaluation for SNF versus home 2. Anxiety/ADHD ?Stable ? Continue with her home medications DVT: Lovenox Charges/Coding Visit Charges Inpatient E&M: 70009 Subs Hosp L2
[2024-04-08 11:00] VITALS: BP 139/85; PULSE 88; RESP 16; TEMP 36.9; O2SAT 96
[2024-04-08] MEDS: ALPRAZolam 0.25 MG Tablet 0.125 MG PO (11:45)
[2024-04-08] MEDS: LISDEXAMFETAMINE DIMESYLATE 70 MG CAPSULE PO (11:45)
--- NOTE | 2024-04-08 14:59 | CASEMGMT ---
TC to who requested tc to make aware that pt plan is SNF but pt has not been able to make a decision on facility at this time d/t being nauseaus per SW. Dr. Kennedy states that he plans to take pt to surgery and it will be a lengthy case. He states he will call [facility] now to see if he can get OR time for Monday. He requests RN CM to call him back in the morning to make aware pt decision on SNF and he will notify when OR is. Updated SW.
[2024-04-08 16:18] VITALS: BP 148/89; PULSE 88; RESP 16; TEMP 36.9; O2SAT 98
--- NOTE | 2024-04-08 16:34 | CASEMGMT ---
Social Work- SW met with pt to discuss preferences at d/c. Pt was feeling nauseous and declined to speak with SW at this time. A list of SNF providers including quality and resource use data and consistent with the patient?s preferred geographic region, medical needs, and insurance network were provided from the CarePort Guide. SW will follow up with pt for selections. SW attempted to follow up. Pt resting with eyes shut and did not respond to voice. SW will continue to follow. ALEXUS Sparks
[2024-04-08] MEDS: proCHLORPERazine 10 MG/2 ML Vial IV (18:44)
[2024-04-08] MEDS: ALPRAZolam 0.25 MG Tablet PO (23:23)
[2024-04-08] MEDS: Senna/Docusate Sodium 1 Tablet 2 TABLET PO (23:23)
[2024-04-08 23:38] VITALS: BP 146/90; PULSE 95; RESP 12; TEMP 37.4; O2SAT 96
[2024-04-09] MEDS: Ibuprofen 400 MG Tablet PO (00:23)
[2024-04-09] MEDS: Arthritis Pain Compound 60 CLICK TUBE TOPICAL (00:50)
[2024-04-09 06:00] VITALS: BP 140/86; PULSE 83; RESP 13; TEMP 36.9; O2SAT 99
[2024-04-09] MEDS: busPIRone 15 MG TABLET PO ×3 (06:08→21:48)
[2024-04-09 06:58] LABS: Absolute Lymphocyte Count 1.14 X10^3/uL (0.83-4.51); Absolute Neutrophil Count 2.2 X10^3/uL (2.0-7.7); Hematocrit 38.3 % (37-47); Hemoglobin 12.8 g/dL (12.0-15.0); Lymphocyte # 1.14 X10^3/ul (0.83-4.51); Lymphocyte % 27.8 % (19-41); Mean Corp Hgb Conc 33.4 g/dL (32-36); Mean Corpuscular Hgb 30.1 pg (27.0-32.0); Mean Corpuscular Volume 90.1 fL (81-99); Mean Platelet Vol. 8.7 fl (6.2-12.0); Monocyte# 0.73 X10^3/uL; Monocyte% 17.8 % (0-10); NRBC Flagged by Analyzer 0 % (0-5); Neutrophil # 2.22 X10^3/uL (2.7-7.7); Neutrophil % 54.2 % (47-70); Platelet Count 236 K/mm3 (150-450); RBC Distribution Width CV 13.2 % (11.6-14.6); Red Blood Count 4.25 M/mm3 (4.2-5.4); White Blood Count 4.1 K/mm3 (4.4-11.0)
[2024-04-09 07:36] LABS: Anion Gap 7 (5-15); BUN 15 mg/dL (7-18); BUN/Creat Ratio 26.2 RATIO (10-20); Calcium,Total 9.2 mg/dL (8.5-10.1); Chloride 102 mmol/L (98-107); Creatinine, Serum 0.57 mg/dL (0.55-1.02); EST Glomerular Filtration Rate 113 mL/min (>60); Est Glom Filt Rate - Afr Amer 137 mL/min (>60); Estimated Creatinine Clearance 103.02 ml/min; Glucose 121 mg/dL (74-106); Potassium 3.6 mmol/L (3.5-5.1); Sodium Level 136 mmol/L (136-145)
[2024-04-09 08:22] VITALS: BP 146/91; PULSE 77; RESP 16; TEMP 36.8; O2SAT 97
[2024-04-09] MEDS: LISDEXAMFETAMINE DIMESYLATE 70 MG CAPSULE PO (08:39)
[2024-04-09] MEDS: ALPRAZolam 0.25 MG Tablet 0.125 MG PO ×2 (08:39→15:25)
--- NOTE | 2024-04-09 09:51 | CASEMGMT ---
Discharge Planning A new SNF list of providers including quality and resource use data and consistent with the patient's preferred geographic region, medical needs, and insurance network was created in CarePort Guide.? This list was provided to the SW. Registration confirmed that pt's MMO coverage is in effect. Raiza Martel, Discharge Planning Asst.
--- NOTE | 2024-04-09 09:55 | CASEMGMT ---
TC to Dr. Nikole Kennedy, he states that he did get OR time for Monday at 7:30am with plan for pt to stay over the weekend and he will reassess pt on Monday. He states pt will be non wt bearing post surgery as well. He is aware that pt will stay for OR and SNF placement will be sought post surgery. Updated SW.
[2024-04-09] MEDS: Polyethylene Glycol 3350 17 GM PACKET PO (09:59)
[2024-04-09] MEDS: Senna/Docusate Sodium 1 Tablet 2 TABLET PO ×2 (09:59→21:48)
[2024-04-09] MEDS: Enoxaparin 40 MG/0.4 ML Syringe SC (09:59)
--- NOTE | 2024-04-09 10:04 | PCM.PN.HOSP ---
Subjective Subjective Doing well, no issues overnight Objective Data Objective Data Vital Signs: Vital Signs Temp Pulse Resp BP Pulse Ox O2 Del Method 98.3 F 77 16 146/91 H 97 Room Air 04/09/24 08:22 04/09/24 08:22 04/09/24 08:22 04/09/24 08:22 04/09/24 08:22 04/09/24 08:43 Oxygen Delivery Method Room Air Weight: 142 lb 6.698 oz Body Mass Index (BMI) 21.0 Intake & Output: Intake and Output for Last 24 Hours 04/08/24 04/09/24 04/10/24 03:59 03:59 03:59 Output Total 500 / 500 400 / 400 Balance -500 / -500 -400 / -400 Lab / Micro Data 04/09/24 06:29 04/09/24 06:29 Labs: Laboratory Results - last 24 hr 04/09/24 06:29: WBC 4.1 L, RBC 4.25, Hgb 12.8, Hct 38.3, MCV 90.1, MCH 30.1, MCHC 33.4, RDW Std Deviation 43.0, RDW Coeff of [place] 13.2, Plt Count 236, MPV 8.7, Immature Gran % (Auto) 0.200, Neut % (Auto) 54.2, Lymph % (Auto) 27.8, [place] % (Auto) 17.8 H, Eos % (Auto) 0.0, Baso % (Auto) 0.0, Absolute Neuts (auto) 2.2, Absolute Lymphs (auto) 1.14, Nucleated RBC % 0, Sodium 136, Potassium 3.6, Chloride 102, Carbon Dioxide 28.0, Anion Gap 7, BUN 15, Creatinine 0.57, Estim Creat Clear Calc 103.02, Est GFR (MDRD) Af Amer 137, Est GFR (MDRD) Non-Af 113, BUN/Creatinine Ratio 26.2 H, Glucose 121 H, Calcium 9.2 Physical Exam Narrative General: Alert, Oriented x3, Cooperative, No apparent distress HEENT: Atraumatic, PERRLA, EOMI, Normocephalic Oral: Moist Mucosa Neck: Supple, No JVD Lungs: Clear to auscultation, Normal air movement, No rhonchi, No wheeze, No rales Cardiovascular: Regular rate, Regular Rhythm, Normal S1, Normal S2, No murmurs Abdomen: Soft, Non Tender, Non-Distended, No Hepato-splenomegaly Extremities: No edema, Capillary Refill Less than 3 Seconds Skin: No rashes, No breakdown Musculoskeletal: Lower extremities wrapped Neurological: No focal neurological deficits, Motor Exam 5/5 strength throughout, Sensory exam intact to light touch and pain Psych/Mental Status: Normal Affect, Appropriate Assessment & Plan Assessment/Plan (1) Bilateral calcaneal fractures: QUALIFIERS: Encounter type: initial encounter Fracture type: closed Qualified Code(s): S92.001A - Unspecified fracture of right calcaneus, initial encounter for closed fracture; S92.002A - Unspecified fracture of left calcaneus, initial encounter for closed fracture PLAN: Plan 1. Bilateral calcaneal foot fracture - There are no features of compartment syndrome -Will discontinue IV pain medication for discharge, continue with [place] and will add ibuprofen -Appreciate podiatry's assistance, no plan for immediate surgical intervention -PT/OT evaluation for SNF versus home. OR time was obtained for Monday 2. Anxiety/ADHD ?Stable ? Continue with her home medications DVT: Lovenox Charges/Coding Visit Charges Inpatient E&M: 16911 Subs Hosp L2
--- NOTE | 2024-04-09 11:58 | CASEMGMT ---
Addendum entered by Caitlin Mann 04/09/24 12:32: YANI checked registration desktop- [employer] is primary insurance. MMO is for eye and dental only. ALEXUS Sparks Original Note: Social Work- SW met with pt to clarify insurance coverage. Pt reports that she is not the policy alejandro for MMO and should not be covered under that plan. SW provided a list of SNF providers for MMO and marked facilities that were accepted by both insurance coverages. Pt reports she did not feel well last night and could not look at list and reported that she took a neurostimulator medication this morning and needed time before looking at the list this morning. SW to follow up this afternoon on SNF choices. ALEXUS Sparks
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
--- NOTE | 2024-04-09 14:43 | CASEMGMT ---
Addendum entered by Raiza Martel 04/10/24 08:22: [facility] has declined d/t no bed availability. Raiza Martel DC Planning Asst. Addendum entered by Raiza Martel 04/10/24 08:19: Msg sent to [facility] to check on status of the referral. Awaiting response. Raiza Martel DC Planning Asst. Addendum entered by Raiza Martel 04/10/24 08:00: [facility] declined. Raiza Martel DC Planning Asst. Original Note: Discharge Planning Referral sent via [facility]Port to [facility] and [facility]. Raiza Martel DC Planning Asst.
[2024-04-09 15:19] VITALS: BP 128/95; PULSE 104; RESP 16; TEMP 36.5; O2SAT 97
[2024-04-09] MEDS: Ensure Plus High Protein 120 ML LIQUID PO (17:01)
[2024-04-09 21:00] VITALS: BP 126/81; PULSE 105; RESP 16; TEMP 36.3; O2SAT 99
[2024-04-09] MEDS: ALPRAZolam 0.25 MG Tablet PO (21:48)
[2024-04-09] MEDS: 0.9% Saline Lock 10 ML Syringe IV (21:51)
[2024-04-09 23:11] VITALS: O2SAT 98
[2024-04-09] MEDS: HYDROcodone Bitartrate/Apap 5/325 Tablet PO (23:48)
[2024-04-10 03:00] VITALS: BP 132/84; PULSE 75; RESP 14; TEMP 36.7; O2SAT 98
[2024-04-10] MEDS: busPIRone 15 MG TABLET PO ×3 (04:54→22:47)
[2024-04-10] MEDS: Enoxaparin 40 MG/0.4 ML Syringe SC (08:22)
[2024-04-10] MEDS: ALPRAZolam 0.25 MG Tablet 0.125 MG PO ×2 (08:22→12:43)
[2024-04-10] MEDS: Senna/Docusate Sodium 1 Tablet 2 TABLET PO ×2 (08:23→22:47)
[2024-04-10] MEDS: Polyethylene Glycol 3350 17 GM PACKET PO (08:23)
[2024-04-10] MEDS: Ensure Plus High Protein 120 ML LIQUID PO ×3 (08:23→16:14)
[2024-04-10 08:30] VITALS: BP 144/92; PULSE 86; RESP 16; TEMP 36.6; O2SAT 97
[2024-04-10] MEDS: LISDEXAMFETAMINE DIMESYLATE 70 MG CAPSULE PO (08:49)
--- NOTE | 2024-04-10 10:39 | PN.HOSP_ITS ---
Subjective Subjective Nausea is improved, no issues overnight. Pain is controlled Objective Data Objective Data Vital Signs: Vital Signs Temp Pulse Resp BP Pulse Ox O2 Del Method 97.8 F 86 16 144/92 H 97 Room Air 04/10/24 08:30 04/10/24 08:30 04/10/24 08:30 04/10/24 08:30 04/10/24 08:30 04/10/24 08:30 Oxygen Delivery Method Room Air Weight: 142 lb 6.698 oz Body Mass Index (BMI) 21.0 Intake & Output: Intake and Output for Last 24 Hours 04/09/24 04/10/24 04/11/24 03:59 03:59 03:59 Intake Total 1140 / 1140 240 / 240 Output Total 500 / 500 400 / 400 Balance -500 / -500 740 / 740 240 / 240 Lab / Micro Data 04/09/24 06:29 04/09/24 06:29 Physical Exam Narrative General: Alert, Oriented x3, Cooperative, No apparent distress HEENT: Atraumatic, PERRLA, EOMI, Normocephalic Oral: Moist Mucosa Neck: Supple, No JVD Lungs: Clear to auscultation, Normal air movement, No rhonchi, No wheeze, No rales Cardiovascular: Regular rate, Regular Rhythm, Normal S1, Normal S2, No murmurs Abdomen: Soft, Non Tender, Non-Distended, No Hepato-splenomegaly Extremities: No edema, Capillary Refill Less than 3 Seconds Skin: No rashes, No breakdown Musculoskeletal: Lower extremities wrapped Neurological: No focal neurological deficits, Motor Exam 5/5 strength throughout, Sensory exam intact to light touch and pain Psych/Mental Status: Normal Affect, Appropriate Assessment & Plan Assessment/Plan (1) Bilateral calcaneal fractures: QUALIFIERS: Encounter type: initial encounter Fracture type: c losed Qualified Code(s): S92.001A - Unspecified fracture of right calcaneus, initial encounter for closed fracture; S92.002A - Unspecified fracture of left calcaneus, initial encounter for closed fracture PLAN: Plan 1. Bilateral calcaneal foot fracture - There are no features of compartment syndrome - Continue with [place] and will add ibuprofen -Appreciate podiatry's assistance -PT/OT evaluation for SNF versus home. OR time was obtained for Monday 2. Anxiety/ADHD ?Stable ? Continue with her home medications 3. History of GERD ? Started on a PPI as she is concerned that that might be causing part of her nausea DVT: [place] Charges/Coding Visit Charges Inpatient E&M: 98712 Subs Hosp L2
[2024-04-10] MEDS: Pantoprazole Sodium 40 MG Tablet PO (11:26)
--- NOTE | 2024-04-10 12:43 | CASEMGMT ---
Social Work- SW met with pt to update on status of referrals. SW notified pt that [facility] both declined to accept referrals. Pt selected [facility] and [facility] for additional referrals. DCA notified. Pt reports that she is irritable today, as everything hurts and pt is bored. SW discussed things like audio books on her phone (pt already has/does), crafts, crosswords, etc. as well as coping skills pt can utilize. Pt stated she would like a long exercise band to work on upper body strengthening as well. SW requested a band from PT; they will deliver after lunch. SW found coloring books and activity books and took to pt room. SW will remain available to follow. ALEXUS Sparks
--- NOTE | 2024-04-10 12:50 | CASEMGMT ---
Addendum entered by Raiza Martel 04/10/24 16:04: [facility] declined. updated. Raiza Martel DC Planning Asst. Addendum entered by Raiza Martel 04/10/24 13:05: [facility]. Raiza Martel DC Planning Asst. Original Note: Discharge Planning Referral sent via [facility]Port to [facility] and [facility]. Raiza Martel DC Planning Asst.
[2024-04-10 13:43] VITALS: BP 148/88; PULSE 97; RESP 16; TEMP 36.6; O2SAT 100
--- NOTE | 2024-04-10 14:21 | RAD_ITS ---
HISTORY: pain. TECHNIQUE: XR Hip Unilateral with Pelvis when performed; 2-3 Views. COMPARISON: None. FINDINGS: OSSEOUS STRUCTURES: Very mildly displaced and impacted fractures of the left superior and inferior pubic rami. Note that overlapping bowel shadows may obscure osseous detail. Mineralization unremarkable. JOINT SPACES: No dislocation. Mild degenerative change. RAD/Hip Min 2 Views (Portable) IMPRESSION: Fractures of the left superior and inferior pubic rami. Electronically Signed: Sonya Garcia MD at 15:50 EST ,
--- NOTE | 2024-04-10 14:21 | RAD_ITS ---
HISTORY: pain. TECHNIQUE: XR Chest 1 View. COMPARISON: None. FINDINGS: CARDIOMEDIASTINAL BORDERS: Cardiac silhouette within normal limits in size. Mediastinal contour unremarkable. LUNGS: Radiographically clear. PLEURA: No pleural effusion or pneumothorax seen. OSSEOUS STRUCTURES: Unremarkable. RAD/Chest 1 View (Portable) IMPRESSION: No acute cardiopulmonary process identified. Electronically Signed: Sonya Garcia MD at 15:51 EST ,
[2024-04-10] MEDS: HYDROcodone Bitartrate/Apap 5/325 Tablet PO (22:48)
[2024-04-10] MEDS: ALPRAZolam 0.25 MG Tablet PO (22:48)
[2024-04-10] MEDS: Arthritis Pain Compound 60 CLICK TUBE TOPICAL (22:49)
[2024-04-10 22:52] VITALS: BP 144/88; PULSE 105; RESP 16; TEMP 36.7; O2SAT 97
[2024-04-10 22:55] VITALS: PULSE 105
[2024-04-11 05:44] VITALS: BP 122/83; PULSE 83; RESP 16; TEMP 37; O2SAT 100
[2024-04-11] MEDS: busPIRone 15 MG TABLET PO ×3 (05:46→22:12)
[2024-04-11] MEDS: LISDEXAMFETAMINE DIMESYLATE 70 MG CAPSULE PO (06:11)
[2024-04-11] MEDS: Enoxaparin 40 MG/0.4 ML Syringe SC (08:46)
[2024-04-11] MEDS: Ensure Plus High Protein 120 ML LIQUID PO ×3 (08:46→17:01)
[2024-04-11] MEDS: Propranolol 10 MG Tablet PO (08:46)
[2024-04-11] MEDS: ALPRAZolam 0.25 MG Tablet 0.125 MG PO ×2 (08:46→13:40)
[2024-04-11] MEDS: Pantoprazole Sodium 40 MG Tablet PO (08:47)
[2024-04-11 08:54] VITALS: BP 144/113; PULSE 111; RESP 16; TEMP 36.6; O2SAT 99
--- NOTE | 2024-04-11 09:26 | PCM.PN.HOSP ---
Subjective Subjective Doing well, no issues overnight. Pain is controlled. She was complaining of some left hip and right chest pain, no rib fractures and she does have superior and inferior pubic rami fractures on the left which are nonoperative Objective Data Objective Data Vital Signs: Vital Signs Temp Pulse Resp BP Pulse Ox O2 Del Method 97.8 F 111 H 16 144/113 H 99 Room Air 04/11/24 08:54 04/11/24 08:54 04/11/24 08:54 04/11/24 08:54 04/11/24 08:54 04/11/24 08:54 Oxygen Delivery Method Room Air Weight: 142 lb 6.698 oz Body Mass Index (BMI) 21.0 Intake & Output: Intake and Output for Last 24 Hours 04/10/24 04/11/24 04/12/24 03:59 03:59 03:59 Intake Total 1140 / 1140 1020 / 1020 350 / 350 Output Total 400 / 400 Balance 740 / 740 1020 / 1020 350 / 350 Lab / Micro Data 04/09/24 06:29 04/09/24 06:29 Radiography Diagnostic Testing: Radiology Impression Chest X-Ray 04/10/24 14:21 IMPRESSION: No acute cardiopulmonary process identified. Electronically Signed: Sonya Garcia MD at 15:51 EST , Hip X-Ray 04/10/24 14:21 IMPRESSION: Fractures of the left superior and inferior pubic rami. Electronically Signed: Sonya Garcia MD at 15:50 EST , Physical Exam Narrative General: Alert, Oriented x3, Cooperative, No apparent distress HEENT: Atraumatic, PERRLA, EOMI, Normocephalic Oral: Moist Mucosa Neck: Supple, No JVD Lungs: Clear to auscultation, Normal air movement, No rhonchi, No wheeze, No rales Cardiovascular: Regular rate, Regular Rhythm, Normal S1, Normal S2, No murmurs Abdomen: Soft, Non Tender, Non-Distended, No Hepato-splenomegaly Extremities: No edema, Capillary Refill Less than 3 Seconds Skin: No rashes, No breakdown Musculoskeletal: Lower extremities wrapped Neurological: No focal neurological deficits, Motor Exam 5/5 strength throughout, Sensory exam intact to light touch and pain Psych/Mental Status: Normal Affect, Appropriate Assessment & Plan Assessment/Plan (1) Bilateral calcaneal fractures: QUALIFIERS: Encounter type: initial encounter Fracture type: closed Qualified Code(s): S92.001A - Unspecified fracture of right calcaneus, initial encounter for closed fracture; S92.002A - Unspecified fracture of left calcaneus, initial encounter for closed fracture PLAN: Plan 1. Bilateral calcaneal foot fracture/left inferior superior pubic rami fractures - There are no features of compartment syndrome - Continue with [place] and will add ibuprofen -Appreciate podiatry's assistance -PT/OT evaluation for SNF versus home. OR time was obtained for Monday ? Will recheck labs tomorrow prior to surgery 2. Anxiety/ADHD ?Stable ? Continue with her home medications 3. History of GERD ? Started on a PPI as she is concerned that that might be causing part of her nausea DVT: [place] Charges/Coding Visit Charges Inpatient E&M: 27739 Subs Hosp L2
[2024-04-11 11:31] VITALS: BP 122/86; PULSE 98; RESP 16; TEMP 36.9; O2SAT 100
--- NOTE | 2024-04-11 12:41 | PN_ITS ---
Subjective Subjective check feet and prepare pt for surgery tomorrow. pt resting comfotably Objective Data Objective Data Vital Signs: Vital Signs Temp Pulse Resp BP Pulse Ox O2 Del Method 98.5 F 98 16 122/86 H 100 Room Air 04/11/24 11:31 04/11/24 11:31 04/11/24 11:31 04/11/24 11:31 04/11/24 11:31 04/11/24 11:31 Oxygen Delivery Method Room Air Weight: 64.6 kg Body Mass Index (BMI) 21.0 Intake & Output: Intake and Output for Last 24 Hours 04/09/24 04/10/24 04/11/24 23:59 23:59 23:59 Intake Total 900 / 1140 960 / 1260 750 / 750 Output Total 400 / 400 Balance 500 / 740 960 / 1260 750 / 750 Lab / Micro Data 04/09/24 06:29 04/09/24 06:29 Radiography Diagnostic Testing: Radiology Impression Chest X-Ray 04/10/24 14:21 IMPRESSION: No acute cardiopulmonary process identified. Electronically Signed: Sonya Garcia MD at 15:51 EST , Hip X-Ray 04/10/24 14:21 IMPRESSION: Fractures of the left superior and inferior pubic rami. Electronically Signed: Sonya Garcia MD at 15:50 EST , Physical Exam Const alert, oriented x3, no apparent distress and well nourished General Appearance: cooperative and well developed Extremity Extremity Narrative: both feet with moderate swelling and bruising. no fracture blisters. no open lesions. wrinkle test positive. integument in good shape for surgery. Neuro Neuro Narrative: sensory normal to both feet Assessment & Plan Assessment/Plan (1) Bilateral calcaneal fractures: QUALIFIERS: Encounter type: initial encounter Fracture type: c losed Qualified Code(s): S92.001A - Unspecified fracture of right calcaneus, initial encounter for closed fracture; S92.002A - Unspecified fracture of left calcaneus, initial encounter for closed fracture (2) Ankle fracture, lateral malleolus, closed: QUALIFIERS: Encounter type: initial encounter Fracture alignment: nondisplaced Laterality: right Qualified Code(s): S82.64XA - Nondisplaced fracture of lateral malleolus of right fibula, initial encounter for closed fracture PLAN: Plan comminuted calc fracture/joint depression bilateral. integument good for surgery. no neurovasc compromise. Pt fully aware and consented to procedure. answered lots of questions.
--- NOTE | 2024-04-11 14:23 | CASEMGMT ---
Social Work- SW met with pt to update on status of referrals. Pt notified [facility] accepted. [facility] declined. Pt agreeable to [facility] and does not wish to have any additional referrals. [facility] notified. SW discussed HCPOA. SW and pt began completing, but pt had a visitor arrive and pt asked SW to pause completion. SW will remain available to follow and educated pt on SW hours on the floor if pt has questions regarding document. ALEXUS Sparks
--- NOTE | 2024-04-11 16:35 | CASEMGMT ---
Social Work SW met with pt and assisted pt in completing HCPOA. Pt choosing not to complete living will. Pt states that her legal name has been changed to Sammi Chowdhury, returning to her maiden name after a divorce this year, but pt states her insurance cards and medical information still states Nyasia. SW completed HCPOA using pt's legal name of Sammi Chowdhury. Pt naming her brother Grayson Chowdhury as HCPOA and son Javier Keene as first alternate. Copy placed on pt chart and originals give to pt. ALEXUS Pinzon
[2024-04-11 17:03] VITALS: BP 126/92; PULSE 94; RESP 16; TEMP 36.8; O2SAT 97
--- NOTE | 2024-04-11 17:13 | EKG12_ITS ---
Test Reason : AM EKG Blood Pressure : */* mmHG Vent. Rate : 85 BPM Atrial Rate : 85 BPM P-R Int : 150 ms QRS Dur : 84 ms QT Int : 404 ms P-R-T Axes : 69 100 72 degrees QTcB Int : 480 ms Normal sinus rhythm Right atrial enlargement Rightward axis Borderline ECG When compared with ECG of 18-Jun-2023 00:16, T wave inversion no longer evident in Lateral leads Confirmed by PADMINI ETIENNE, ANGI ([id number]), editor at large ESTEPHANIA HART ([id number]) on 04/16/2024 8:18:14 A M Referred By: Alejo Ivy Confirmed By: ANGI WASHINGTON MD
[2024-04-11] MEDS: ALPRAZolam 0.25 MG Tablet PO (22:11)
[2024-04-11] MEDS: Arthritis Pain Compound 60 CLICK TUBE TOPICAL (22:13)
[2024-04-11] MEDS: HYDROcodone Bitartrate/Apap 5/325 Tablet PO (22:17)
[2024-04-11 22:37] VITALS: PULSE 103
[2024-04-11 22:45] VITALS: BP 150/98; PULSE 103; RESP 16; TEMP 36.8; O2SAT 98
[2024-04-12] VITALS (14 sets, daily range): BP systolic 127–158; BP diastolic 82–109; PULSE 79–115; RESP 12–16; TEMP 36.2–37.1; O2SAT 95–99; BMI 21.0
[2024-04-12] MEDS: busPIRone 15 MG TABLET PO ×3 (04:07→22:17)
[2024-04-12] MEDS: HYDROcodone Bitartrate/Apap 5/325 Tablet PO ×3 (04:08→21:28)
[2024-04-12 05:22] LABS: Absolute Lymphocyte Count 1.42 X10^3/uL (0.83-4.51); Absolute Neutrophil Count 3.2 X10^3/uL (2.0-7.7); Basophil# 0.01 X10^3/uL; Basophil% 0.2 % (0-1); Hematocrit 40.1 % (37-47); Hemoglobin 13.8 g/dL (12.0-15.0); Lymphocyte # 1.42 X10^3/ul (0.83-4.51); Lymphocyte % 26.3 % (19-41); Mean Corp Hgb Conc 34.4 g/dL (32-36); Mean Corpuscular Hgb 30.6 pg (27.0-32.0); Mean Corpuscular Volume 88.9 fL (81-99); Mean Platelet Vol. 8.8 fl (6.2-12.0); Monocyte# 0.79 X10^3/uL; Monocyte% 14.7 % (0-10); NRBC Flagged by Analyzer 0 % (0-5); Neutrophil # 3.15 X10^3/uL (2.7-7.7); Neutrophil % 58.4 % (47-70); Platelet Count 284 K/mm3 (150-450); RBC Distribution Width CV 12.7 % (11.6-14.6); RBC Distribution Width SD 41.8 fl (35.1-43.9); Red Blood Count 4.51 M/mm3 (4.2-5.4); White Blood Count 5.4 K/mm3 (4.4-11.0)
[2024-04-12 05:34] LABS: Anion Gap 6 (5-15); BUN 20 mg/dL (7-18); BUN/Creat Ratio 32.2 RATIO (10-20); Calcium,Total 9.1 mg/dL (8.5-10.1); Chloride 101 mmol/L (98-107); Creatinine, Serum 0.62 mg/dL (0.55-1.02); EST Glomerular Filtration Rate 103 mL/min (>60); Est Glom Filt Rate - Afr Amer 125 mL/min (>60); Estimated Creatinine Clearance 94.71 ml/min; Glucose 121 mg/dL (74-106); Potassium 4.1 mmol/L (3.5-5.1); Sodium Level 134 mmol/L (136-145)
--- NOTE | 2024-04-12 07:00 | PCM.PRE.AN2 ---
ASA Classification* ASA Classification ASA Classification: 2 Assessment & Plan Anesthesia* Anesthesia Assessment Anesthesia Assessment: Discussed sedation and/or anesthesia options, risks, benefits, and alternatives with patient/parents/legal guardian/POA. Questions invited. The patient/parents/legal guardian/POA seems to understand and agrees to proceed with anesthesia plan. Reviewed the physical assessment, medical history, allergy history and patient home medications list prior to surgery/procedure/anesthetic and documented any changes. Performed airway and anesthesia risk assessments. Anesthesia Type Anesthesia Type: General Anesthesia Focused Assessment* Temperature: 97.7 F Pulse Rate: 79 Blood Pressure: 127/82 Respiratory Rate: 16 Pulse Ox: 98 Airway Assessment Mouth opens: >3 cm Mallampati Score: II Focused Labs Anesthesia Preop lab: CBC WBC 5.4 K/mm3 (4.4-11.0) 04/12/24 05:14 RBC 4.51 M/mm3 (4.2-5.4) 04/12/24 05:14 Hgb 13.8 g/dL (12.0-15.0) 04/12/24 05:14 Hct 40.1 % (37-47) 04/12/24 05:14 Plt Count 284 K/mm3 (150-450) 04/12/24 05:14 CHEMISTRY Potassium 4.1 mmol/L (3.5-5.1) 04/12/24 05:14 Sodium 134 mmol/L (136-145) L 04/12/24 05:14 Magnesium 1.9 mg/dL (1.6-2.6) 04/07/24 04:16 BUN 20 mg/dL (7-18) H 04/12/24 05:14 Creatinine 0.62 mg/dL (0.55-1.02) 04/12/24 05:14 Glucose 121 mg/dL (74-106) H 04/12/24 05:14 COAG PT 13.9 SECONDS (11.7-14.9) 04/07/24 04:16 Pre-Assessment Diagnosis/Proposed Procedure Planned Operative Procedure(s): ORIF calcaneal fractures Anesthesia History 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 When Was Last Pacemaker Check QUESTION #4 FULL TEXT: You/Your Family Experience fever (hyperthermia) with Anesthesia Last Oral Intake Last Oral intake: Last Oral Intake NPO since 00:00 04/12/24 04:39 Meds taken in AM with sips of Yes 04/12/24 04:39 water? Meds patient instructed to Camilo at 0408 04/12/24 04:39 take am of surgery PONV PONV - mechanics supervisor: PONV - mechanics supervisor Female HX of Motion Sickness HX of N/V After Surgery Non-Smoker Duration of Surgery greater than 60 minutes Number of Risk Factors PONV Score Height & Weight Height & Weight: Anesthesia: Height & Weight Height 5 ft 9 in 04/12/24 04:39 Weight: 64.6 kg 04/12/24 04:39 Body Mass Index (BMI) 21.0 04/12/24 04:39 Respiratory Assessment Respiratory Assessment - mechanics supervisor: Respiratory Tract Infection Hx - mechanics supervisor Hx Respiratory Tract Infection No 04/11/24 17:39 STOP Sleep Apnea STOP Sleep Apnea - mechanics supervisor: STOP Sleep Apnea - mechanics supervisor Hx Hypertension No 04/07/24 09:51 Hx Sleep Apnea No 04/06/24 18:42 CPAP BIPAP Do you snore loudly (louder No 04/06/24 18:42 than talking or can be heard Do you often feel tired/ No 04/06/24 18:42 fatigued/ sleepy during daytime? Has anyone observed you stop No 04/06/24 18:42 breathing during sleep? STOP Results Negative 04/06/24 18:42 QUESTION #5 FULL TEXT : Do you snore loudly (louder than talking or can be heard through closed doors)? Tobacco Use History Tobacco Use History - mechanics supervisor: Tobacco Use History - mechanics supervisor Tobacco Use Smoking Status Never smoker 04/06/24 18:42 Hx Tobacco Use No 04/06/24 18:42 Years Smoking Packs Smoked per Day Smoking Cessation Date was within the last 15 years Hx Smoking Cessation Date Hx Smoking Cessation Counseling Hematologic Medial History Hematologic Hx - mechanics supervisor: Hematologic Medical Hx - rehab trainer Hx of Blood Transfusion No 04/06/24 18:42 Hx of Transfusion in last 3 No 04/06/24 18:42 Months Date of Last Transfusion (if within last 3 months) Ever experience any problems No 04/06/24 18:42 with transfusion(s)? Specify any problems Hx of Preganancy in last 3 N/A 04/06/24 18:42 Months Nurse Filling Out Transfusion [email or web address] 04/06/24 18:42 & Questions: Date: 04/06/24 04/06/24 18:42 Time: 18:50 04/06/24 18:42 Patient unable to answer at this time (ie. confused, unrespo /Reproduction History /Reproductive History - mechanics supervisor: /Reproductive Hx- mechanics supervisor Hx Now No 04/11/24 17:39 Gestational Age (in weeks): EDC: Hx Hx Para Hx Section SAB No 04/11/24 17:39 Active Medications Active Medications: Current Medications Generic Name Dose Route Start Last Admin Trade Name Freq PRN Reason Stop Dose Admin Hydrocodone Bitart/Acetaminophen 1 - 2 tablet 04/08/24 03:34 04/12/24 04:08 Hydrocodone Bitartrate/Apap 5/325 Tablet PO 1 tablet Q4H PRN PRN Administration Pain Score 4-10 or Pre PT/OT Alprazolam 0.125 mg 04/07/24 14:32 04/11/24 13:40 Alprazolam 0.25 Mg Tablet PO 0.125 mg BID@0800,1400 SHREYA Administration Alprazolam 0.25 mg 04/07/24 22:00 04/11/24 22:11 Alprazolam 0.25 Mg Tablet PO 0.25 mg QHS SHREYA Administration Buspirone HCl 15 mg 04/06/24 22:00 04/12/24 04:07 Buspirone 15 Mg Tablet PO 15 mg TID SHREYA Administration Compound Med 2 click 04/09/24 00:40 04/11/24 22:13 Arthritis Pain Compound 60 Click Tube TOPICAL 2 click BID PRN PRN Administration Pain Score 1-10 Protocol Enoxaparin Sodium 40 mg 04/06/24 17:51 04/11/24 08:46 Enoxaparin 40 Mg/0.4 Ml Syringe SC 40 mg DAILY SHREYA Administration Lactated Ringer's 1,000 mls @ 15 mls/hr 04/12/24 06:45 IV 04/17/24 20:04 .Q48H SHREYA Protocol Ibuprofen 400 mg 04/08/24 10:12 04/09/24 00:23 Ibuprofen 400 Mg Tablet PO 400 mg Q6H PRN PRN Administration Pain Score 1-10 Lisdexamfetamine Dimesylate 70 mg 04/08/24 10:00 04/11/24 06:11 Lisdexamfetamine Dimesylate 70 Mg Capsule PO 70 mg DAILY SHREYA Administration Nutritional Formula (Lactose Free) 120 ml 04/09/24 17:00 04/11/24 17:01 Ensure Plus High Protein 120 Ml Liquid PO 120 ml TIDCM SHREYA Administration Ondansetron HCl 4 mg 04/06/24 17:51 04/08/24 16:15 Ondansetron 4 Mg/2 Ml Vial IV 4 mg Q8H PRN PRN Administration NAUSEA/VOMITING Pantoprazole Sodium 40 mg 04/10/24 10:45 04/11/24 08:47 Pantoprazole Sodium 40 Mg Tablet PO 40 mg DAILY SHREYA Administration Polyethylene Glycol 17 gm 04/07/24 13:10 04/11/24 08:46 Polyethylene Glycol 3350 17 Gm Packet PO Not Given DAILY SHREYA Prochlorperazine Edisylate 10 mg 04/08/24 18:23 04/08/24 18:44 Prochlorperazine 10 Mg/2 Ml Vial IV 10 mg Q6H PRN PRN Administration NAUSEA Propranolol HCl 10 mg 04/07/24 14:29 04/11/24 08:46 Propranolol 10 Mg Tablet PO 10 mg TID PRN Administration HR >110/m Protocol Senna/Docusate Sodium 2 tablet 04/07/24 13:15 04/11/24 22:12 Senna/Docusate Sodium 1 Tablet PO Not Given BID SHREYA Sodium Chloride 10 - 40 ml 04/06/24 19:03 04/09/24 21:51 0.9% Saline Lock 10 Ml Syringe IV 10 ml UD PRN Administration SALINE FLUSH [facility] Medical History Depression ADHD Home Medications ?Medication ?Instructions ?Recorded ?Last Taken ?Type buspirone 15 mg tablet 15 mg PO TID 06/17/23 Unknown History diphenhydramine HCl 25 mg capsule 25 mg PO Q8H PRN allergy symptoms 06/17/23 Unknown History (Benadryl) ibuprofen 200 mg capsule 400 mg PO Q8H 06/17/23 Unknown History lisdexamfetamine 70 mg capsule 70 mg PO DAILY 06/17/23 Unknown History alprazolam 0.5 mg tablet (Xanax) 0.5 mg PO DAILY 04/06/24 Unknown History Allergy/AdvReac Type Severity Reaction Status Date / Time clarithromycin (From Biaxin) Allergy Nausea/Vom/ Verified 04/06/24 14:12 Diarrhea famotidine (From Pepcid) Allergy PT UNSURE Verified 04/06/24 14:12 OF REACTION oxycodone (From Percocet) Allergy PT UNSURE Verified 04/06/24 14:12 OF REACTION Penicillins Allergy Rash Verified 04/06/24 14:12 Surgical History History of tonsillectomy Social History household members: none housing: house current occupational status: employed Smoking Status: Never smoker Review of Systems (Anesthesia) ROS Narrative System reviewed and no additional complaints, except as documented.
--- NOTE | 2024-04-12 08:30 | RAD_ITS ---
HISTORY: BILAT CALCANEUS ORIF. TECHNIQUE: Single spot image. COMPARISON: XR 04/06/2024. FINDINGS: OSSEOUS STRUCTURES: Cortical plate and fixation of calcaneal fracture. RAD/Calcaneus min 2 Views IMPRESSION: Image guidance for left calcaneal fracture ORIF. Electronically Signed: Sonya Garcia MD at 14:08 EST ,
--- NOTE | 2024-04-12 08:30 | RAD_ITS ---
HISTORY: BILAT CALCANEUS ORIF. TECHNIQUE: Single spot image. COMPARISON: CT 04/06/2024. FINDINGS: OSSEOUS STRUCTURES: Cortical plate and screw fixation of calcaneal fracture. RAD/Calcaneus min 2 Views IMPRESSION: Image guidance for right calcaneal fracture ORIF. Electronically Signed: Sonya Garcia MD at 14:07 EST ,
--- NOTE | 2024-04-12 08:54 | PN.HOSP_ITS ---
Subjective Subjective Planning for surgery today, no issues. Lab work is normal Objective Data Objective Data Vital Signs: Vital Signs Temp Pulse Resp BP Pulse Ox O2 Del Method 97.7 F L 79 16 127/82 H 98 Room Air 04/12/24 07:00 04/12/24 07:00 04/12/24 07:00 04/12/24 07:00 04/12/24 07:00 04/12/24 06:03 Oxygen Delivery Method Room Air Weight: 142 lb 6.698 oz Body Mass Index (BMI) 21.0 Intake & Output: Intake and Output for Last 24 Hours 04/11/24 04/12/24 04/13/24 03:59 03:59 03:59 Intake Total 1020 / 1020 1400 / 1400 Balance 1020 / 1020 1400 / 1400 Lab / Micro Data 04/12/24 05:14 04/12/24 05:14 Labs: Laboratory Results - last 24 hr 04/12/24 05:14: WBC 5.4, RBC 4.51, Hgb 13.8, Hct 40.1, MCV 88.9, MCH 30.6, MCHC 34.4, RDW Std Deviation 41.8, RDW Coeff of Ermel[place] 12.7, Plt Count 284, MPV 8.8, Immature Gran % (Auto) 0.400, Neut % (Auto) 58.4, Lymph % (Auto) 26.3, [place] % (Auto) 14.7 H, Eos % (Auto) 0.0, Baso % (Auto) 0.2, Absolute Neuts (auto) 3.2, Absolute Lymphs (auto) 1.42, Nucleated RBC % 0, Sodium 134 L, Potassium 4.1, Chloride 101, Carbon Dioxide 28.0, Anion Gap 6, BUN 20 H, Creatinine 0.62, Estim Creat Clear Calc 94.71, Est GFR (MDRD) Af Amer 125, Est GFR (MDRD) Non-Af 103, B UN/Creatinine Ratio 32.2 H, Glucose 121 H, Calcium 9.1 Physical Exam Narrative General: Alert, Oriented x3, Cooperative, No apparent distress HEENT: Atraumatic, PERRLA, EOMI, Normocephalic Oral: Moist Mucosa Neck: Supple, No JVD Lungs: Clear to auscultation, Normal air movement, No rhonchi, No wheeze, No rales Cardiovascular: Regular rate, Regular Rhythm, Normal S1, Normal S2, No murmurs Abdomen: Soft, Non Tender, Non-Distended, No Hepato-splenomegaly Extremities: No edema, Capillary Refill Less than 3 Seconds Skin: No rashes, No breakdown Musculoskeletal: Lower extremities wrapped Neurological: No focal neurological deficits, Motor Exam 5/5 strength throughout, Sensory exam intact to light touch and pain Psych/Mental Status: Normal Affect, Appropriate Assessment & Plan Assessment/Plan (1) Bilateral calcaneal fractures: QUALIFIERS: Encounter type: initial encounter Fracture type: c losed Qualified Code(s): S92.001A - Unspecified fracture of right calcaneus, initial encounter for closed fracture; S92.002A - Unspecified fracture of left calcaneus, initial encounter for closed fracture PLAN: Plan 1. Bilateral calcaneal foot fracture/left inferior superior pubic rami fractures - There are no features of compartment syndrome - Continue with [place] and will add ibuprofen -Appreciate podiatry's assistance, planning for surgery today and then hopefully disposition for Monday or Monday ?CBC and BMP normal 2. Anxiety/ADHD ?Stable ? Continue with her home medications 3. History of GERD ? Started on a PPI as she is concerned that that might be causing part of her nausea DVT: Luann Charges/Coding Visit Charges Inpatient E&M: 13772 Subs Hosp L2
[2024-04-12] MEDS: Bupiv/Epi 0.25% 30 ML Vial ×2 (09:00→10:00)
--- NOTE | 2024-04-12 10:17 | PCM.POST.ANE ---
Anesthesia: Postop Eval I Current Vital Signs Temperature: 97.7 F Pulse Rate: 94 Blood Pressure: 145/88 Respiratory Rate: 14 Pulse Ox: 96 Oxygen Delivery Method: Room Air Assessment Airway patent: Yes Spontaneous unlabored respirations: Yes Mental status: Awake and Calm nausea: No Vomiting: No Anesthesia Complication: No Fluid Hydration Crystalloid volume administer (ml): 900 Total IV fluid infused: 900 Progress Note Anesthesia document: Postop Eval 1 completed: Yes
--- NOTE | 2024-04-12 10:24 | PCM.OPRPT ---
Operative Report (Standard) Operative Information Surgery/Procedure Performed: bilateral ORIF calcaneal fracture Surgeon: Wolfgang Kennedy Date of Procedure: 04/12/24 Procedure Start Time: 08:00 Procedure Stop Time: 10:00 Pre-Operative Diagnosis: STJ depression calcaneal fracture bilateral Post-Operative Diagnosis: same Select all DRAINS/GRAFTS/IMPLANTS that apply: None and Graft (vitoss demineralized bone matrix) Graft details: vitoss demineralized bone matrix Type of Anesthesia: General Estimated Blood Loss: 20ml Specimen collected: No Description of surgery: Pt was placed on the table in the supine position, general anesthesia administered, normal sterile prep and drape bilateral. thigh tourniquet bilateral at 250mm/hg. started with the left side using c arm to reassure hardware placement and resotration of calcaneal morphology. linear incision from subatalar approach done, deepened by sharp and blunt disection being careful to protect any neurovasc structures. a freer was used to create a pocket along the lateral wall. the hematoma and vanesa fragments were evacuated. The lateral dominant part of the subtalar fragment was depressed and almost facing plantar. the fracture through the joint looked to be in 2 large pieces with some fragmentation. using 2 elevators, the fragment was lifted out from under the anterior calcaneus which was also in 2 pieces. it was mated up with the constant fragment and temporarily fixated. There was a large void under the area. It was filled with Vitoss and the lateral fragment was placed back of the top. the lateral wall was examined and the plate was slipped in the lateral pocket of the lateral wall blow out. it was temporarily fixated with bb tacks and checked under flouro. there was food scientology of calcaneal height and the lateral blow out and posterior calcaneal position was good. the open distal holes were filled then the two percutaneous in the body of the calc. there was good purchase of the hardware and confirmed scientology of calcaneal morphology on flouro. the wound was irrigated. deep tissue sutured with vicryl and skin with nylon. tourniquet was deflated and full perfusion of the foot and toes was noted. A DSD was applied. The posterior splint later. The exact same procedure was done on the right side with exception of the fracture pattern extending out throught the calcaneal cuboid joint area almost in the halves. There wasn't as much bone void or lateral wall fragmentation. Surgical Findings: good scientology of calcaneal morpology and position of hardware. Pt tolerated anesthesia and procedures well. Derrick Boat Leverman banquet line cook: No Complications Complications: No Admit VTE Documentation VTE Present on Admission: Yes VTE Mechan Device Prophylaxis: SCD's VTE Pharm Prophylaxis ordered?: No Reason prophylaxis not ordered: Procedure Not Indicated
--- NOTE | 2024-04-12 11:08 | CASEMGMT ---
Addendum entered by Raiza Martel 04/15/24 09:41: Updates sent to [place]. Raiza Martel DC Planning Asst. Original Note: Discharge Planning Updates sent to [place]. Requested that precert be submitted for tentative dc of Monday. Raiza Martel DC Planning Asst.
--- NOTE | 2024-04-12 11:54 | POSTOPAN2_ITS ---
Anesthesia Postop Eval I Sum Postop Eval Completion status Anesthesia document: Postop Eval 1 completed: Yes Anesthesia Postop Eval I Summary Anesthesia Postop Eval I Summary: Anesthesia Postop Eval I: Assessment Summary Airway patent Yes 04/12/24 10:18 [email or web address] Spontaneous unlabored Yes 04/12/24 10:18 [email or web address] respirations Mental status Awake,Calm 04/12/24 10:18 [email or web address] nausea No 04/12/24 10:18 [email or web address] Vomiting No 04/12/24 10:18 [email or web address] Anesthesia Postop Eval I: Fluid Summary Crystalloid volume administer 900 04/12/24 10:18 [email or web address] (ml) Colloids volume administered ( ml) Blood Product volume administered (ml) Total IV fluid infused 900 04/12/24 10:18 [email or web address] Anesthesia Postop Eval I: Summary Notes Anesthesia Complication No 04/12/24 10:18 [email or web address] Anesthesia Complication Comment: Post-operative progress note Anesthesia: Postop Eval II Evaluation Mental status: Awake and Calm Pain Level: 2 nausea: No Vomiting: No Complications Anesthesia Complication: No
--- NOTE | 2024-04-12 11:54 | PCM.POSTANE2 ---
Anesthesia Postop Eval I Sum Postop Eval Completion status Anesthesia document: Postop Eval 1 completed: Yes Anesthesia Postop Eval I Summary Anesthesia Postop Eval I Summary: Anesthesia Postop Eval I: Assessment Summary Airway patent Yes 04/12/24 10:18 [email or web address] Spontaneous unlabored Yes 04/12/24 10:18 [email or web address] [email or web address] respirations Mental status Awake,Calm 04/12/24 10:18 [email or web address] [email or web address] nausea No 04/12/24 10:18 HOG [email or web address] Vomiting No 04/12/24 10:18 HOG [email or web address] Anesthesia Postop Eval I: Fluid Summary Crystalloid volume administer 900 04/12/24 10:18 HOG [email or web address] (ml) Colloids volume administered ( ml) Blood Product volume administered (ml) Total IV fluid infused 900 04/12/24 10:18 [email or web address] [email or web address] Anesthesia Postop Eval I: Summary Notes Anesthesia Complication No 04/12/24 10:18 [email or web address] [email or web address] Anesthesia Complication Comment: Post-operative progress note Anesthesia: Postop Eval II Evaluation Mental status: Awake and Calm Pain Level: 2 nausea: No Vomiting: No Complications Anesthesia Complication: No
[2024-04-12] MEDS: Pantoprazole Sodium 40 MG Tablet PO (12:00)
[2024-04-12] MEDS: LISDEXAMFETAMINE DIMESYLATE 70 MG CAPSULE PO (12:04)
[2024-04-12] MEDS: Lactated Ringers 1,000 ML 15 ML IV (12:05)
[2024-04-12] MEDS: ALPRAZolam 0.25 MG Tablet 0.125 MG PO (14:17)
[2024-04-12] MEDS: Ibuprofen 400 MG Tablet PO (14:17)
[2024-04-12] MEDS: Enoxaparin 40 MG/0.4 ML Syringe SC (14:17)
[2024-04-12] MEDS: Propranolol 10 MG Tablet PO (14:24)
--- NOTE | 2024-04-12 14:48 | CASEMGMT ---
Social Work- SW completed PASRR and placed on chart. ALEXUS Sparks
[2024-04-12] MEDS: 0.9% Saline Lock 10 ML Syringe IV ×2 (15:22→18:23)
[2024-04-12] MEDS: HYDROmorphone 0.5 MG/0.5 ML SYRINGE IV (15:23)
[2024-04-12] MEDS: Ondansetron 4 MG/2 ML Vial IV (18:22)
[2024-04-12] MEDS: Senna/Docusate Sodium 1 Tablet 2 TABLET PO (22:17)
[2024-04-12] MEDS: ALPRAZolam 0.25 MG Tablet PO (22:17)
[2024-04-13] VITALS (7 sets, daily range): BP systolic 122–136; BP diastolic 76–82; PULSE 81–114; RESP 16–18; TEMP 36.5–37.2; O2SAT 96–100
[2024-04-13] MEDS: HYDROcodone Bitartrate/Apap 5/325 Tablet PO ×3 (01:40→10:23)
[2024-04-13 06:04] LABS: Absolute Lymphocyte Count 1.28 X10^3/uL (0.83-4.51); Absolute Neutrophil Count 5.1 X10^3/uL (2.0-7.7); Hematocrit 35.8 % (37-47); Hemoglobin 11.7 g/dL (12.0-15.0); Lymphocyte # 1.28 X10^3/ul (0.83-4.51); Lymphocyte % 17.5 % (19-41); Mean Corp Hgb Conc 32.7 g/dL (32-36); Mean Corpuscular Hgb 29.5 pg (27.0-32.0); Mean Corpuscular Volume 90.2 fL (81-99); Mean Platelet Vol. 8.8 fl (6.2-12.0); Monocyte# 0.92 X10^3/uL; Monocyte% 12.6 % (0-10); NRBC Flagged by Analyzer 0 % (0-5); Neutrophil # 5.08 X10^3/uL (2.7-7.7); Neutrophil % 69.6 % (47-70); Platelet Count 298 K/mm3 (150-450); RBC Distribution Width CV 12.6 % (11.6-14.6); RBC Distribution Width SD 41.4 fl (35.1-43.9); Red Blood Count 3.97 M/mm3 (4.2-5.4); White Blood Count 7.3 K/mm3 (4.4-11.0)
[2024-04-13] MEDS: busPIRone 15 MG TABLET PO ×3 (06:26→22:31)
[2024-04-13 06:57] LABS: Anion Gap 5 (5-15); BUN 20 mg/dL (7-18); BUN/Creat Ratio 36.9 RATIO (10-20); Calcium,Total 9.2 mg/dL (8.5-10.1); Chloride 100 mmol/L (98-107); Creatinine, Serum 0.54 mg/dL (0.55-1.02); EST Glomerular Filtration Rate 121 mL/min (>60); Est Glom Filt Rate - Afr Amer 146 mL/min (>60); Estimated Creatinine Clearance 108.75 ml/min; Glucose 106 mg/dL (74-106); Potassium 3.9 mmol/L (3.5-5.1); Sodium Level 136 mmol/L (136-145)
--- NOTE | 2024-04-13 08:33 | PCM.PN.HOSP ---
Subjective Subjective Doing well, no issues overnight. Had some nausea immediately after surgery but otherwise been doing well pain is controlled. Objective Data Objective Data Vital Signs: Vital Signs Temp Pulse Resp BP Pulse Ox O2 Del Method 98.6 F 88 18 128/82 H 98 Room Air 04/13/24 06:24 04/13/24 06:24 04/13/24 06:24 04/13/24 06:24 04/13/24 06:24 04/13/24 06:24 Oxygen Delivery Method Room Air Weight: 142 lb 6.698 oz Body Mass Index (BMI) 21.0 Intake & Output: Intake and Output for Last 24 Hours 04/12/24 04/13/24 04/14/24 03:59 03:59 03:59 Intake Total 1400 / 1400 240 / 240 Balance 1400 / 1400 240 / 240 Lab / Micro Data 04/13/24 05:19 04/13/24 05:19 Labs: Laboratory Results - last 24 hr 04/13/24 05:19: WBC 7.3, RBC 3.97 L, Hgb 11.7 L, Hct 35.8 L, MCV 90.2, MCH 29.5, MCHC 32.7, RDW Std Deviation 41.4, RDW Coeff of [place]rm[place] 12.6, Plt Count 298, MPV 8.8, Immature Gran % (Auto) 0.300, Neut % (Auto) 69.6, Lymph % (Auto) 17.5 L, [place] % (Auto) 12.6 H, Eos % (Auto) 0.0, Baso % (Auto) 0.0, Absolute Neuts (auto) 5.1, Absolute Lymphs (auto) 1.28, Nucleated RBC % 0, Sodium 136, Potassium 3.9, Chloride 100, Carbon Dioxide 30.0, Anion Gap 5, BUN 20 H, Creatinine 0.54 L, Estim Creat Clear Calc 108.75, Est GFR (MDRD) Af Amer 146, Est GFR (MDRD) Non-Af 121, BUN/Creatinine Ratio 36.9 H, Glucose 106, Calcium 9.2 Radiography Diagnostic Testing: Radiology Impression Os [place] X-ray 04/12/24 08:30 IMPRESSION: Image guidance for right calcaneal fracture ORIF. Electronically Signed: Sonya Garcia MD at 14:07 EST , Os [facility]cis X-ray 04/12/24 08:30 IMPRESSION: Image guidance for left calcaneal fracture ORIF. Electronically Signed: Sonya Garcia MD at 14:08 EST Reading Location ID and State: [facility] / [place] Tel , Service support , Physical Exam Narrative General: Alert, Oriented x3, Cooperative, No apparent distress HEENT: Atraumatic, PERRLA, EOMI, Normocephalic Oral: Moist Mucosa Neck: Supple, No JVD Lungs: Diminished, Normal air movement, No rhonchi, No wheeze, No rales Cardiovascular: Regular rate, Regular Rhythm, Normal S1, Normal S2, No murmurs Abdomen: Soft, Non Tender, Non-Distended, No Hepato-splenomegaly Extremities: No edema, Capillary Refill Less than 3 Seconds Skin: No rashes, No breakdown Musculoskeletal: Lower extremities wrapped, dressing intact Neurological: No focal neurological deficits, Motor Exam 5/5 strength throughout, Sensory exam intact to light touch and pain, limited by surgery Psych/Mental Status: Normal Affect, Appropriate Assessment & Plan Assessment/Plan (1) Bilateral calcaneal fractures: QUALIFIERS: Encounter type: initial encounter Fracture type: closed Qualified Code(s): S92.001A - Unspecified fracture of right calcaneus, initial encounter for closed fracture; S92.002A - Unspecified fracture of left calcaneus, initial encounter for closed fracture PLAN: Plan 1. Bilateral calcaneal foot fracture status post repair 04/12/2024/left inferior superior pubic rami fractures - There are no features of compartment syndrome - Continue with [place] and will add ibuprofen, Dilaudid for breakthrough -Appreciate podiatry's assistance ? Plan for discharge on Monday or Monday to SNF 2. Anxiety/ADHD ?Stable ? Continue with her home medications 3. History of GERD ? Started on a PPI as she is concerned that that might be causing part of her nausea DVT: Lovenox Charges/Coding Visit Charges Inpatient E&M: 41919 Subs Hosp L2
[2024-04-13] MEDS: LISDEXAMFETAMINE DIMESYLATE 70 MG CAPSULE PO (10:00)
[2024-04-13] MEDS: ALPRAZolam 0.25 MG Tablet 0.125 MG PO ×2 (10:00→15:08)
[2024-04-13] MEDS: Ensure Plus High Protein 120 ML LIQUID PO ×3 (10:07→18:51)
[2024-04-13] MEDS: Enoxaparin 40 MG/0.4 ML Syringe SC (10:07)
[2024-04-13] MEDS: Polyethylene Glycol 3350 17 GM PACKET PO (10:08)
[2024-04-13] MEDS: Senna/Docusate Sodium 1 Tablet 2 TABLET PO ×2 (10:08→22:31)
[2024-04-13] MEDS: Pantoprazole Sodium 40 MG Tablet PO (10:08)
[2024-04-13] MEDS: Propranolol 10 MG Tablet PO (13:16)
[2024-04-13] MEDS: 0.9% Saline Lock 10 ML Syringe IV ×3 (15:08→22:30)
[2024-04-13] MEDS: HYDROmorphone 0.5 MG/0.5 ML SYRINGE IV ×3 (15:09→22:23)
[2024-04-13] MEDS: ALPRAZolam 0.25 MG Tablet PO (22:32)
[2024-04-14] VITALS (7 sets, daily range): BP systolic 128–137; BP diastolic 77–88; PULSE 86–120; RESP 16–18; TEMP 36.6–37.4; O2SAT 95–100
[2024-04-14] MEDS: HYDROcodone Bitartrate/Apap 5/325 Tablet PO ×4 (00:42→19:46)
[2024-04-14] MEDS: HYDROmorphone 0.5 MG/0.5 ML SYRINGE IV (04:57)
[2024-04-14] MEDS: 0.9% Saline Lock 10 ML Syringe IV (05:03)
[2024-04-14] MEDS: busPIRone 15 MG TABLET PO ×3 (06:18→22:23)
[2024-04-14] MEDS: Lactated Ringers 1,000 ML 15 ML IV (06:19)
[2024-04-14] MEDS: LISDEXAMFETAMINE DIMESYLATE 70 MG CAPSULE PO (08:04)
[2024-04-14] MEDS: ALPRAZolam 0.25 MG Tablet 0.125 MG PO ×2 (08:05→14:13)
[2024-04-14] MEDS: Ibuprofen 400 MG Tablet PO ×2 (08:05→22:23)
--- NOTE | 2024-04-14 09:47 | PN.HOSP_ITS ---
Subjective Subjective Doing well, pain is controlled Objective Data Objective Data Vital Signs: Vital Signs Temp Pulse Resp BP Pulse Ox O2 Del Method 99.4 F H 89 16 129/88 H 95 Room Air 04/14/24 07:54 04/14/24 07:54 04/14/24 07:54 04/14/24 07:54 04/14/24 07:54 04/14/24 07:54 Oxygen Delivery Method Room Air Weight: 142 lb 6.698 oz Body Mass Index (BMI) 21.0 Intake & Output: Intake and Output for Last 24 Hours 04/13/24 04/14/24 04/15/24 03:59 03:59 03:59 Intake Total 240 / 240 1662.75 / 1662.75 100 / 100 Balance 240 / 240 1662.75 / 1662.75 100 / 100 Lab / Micro Data 04/13/24 05:19 04/13/24 05:19 Physical Exam Narrative General: Alert, Oriented x3, Cooperative, No apparent distress HEENT: Atraumatic, PERRLA, EOMI, Normocephalic Oral: Moist Mucosa Neck: Supple, No JVD Lungs: Diminished, Normal air movement, No rhonchi, No wheeze, No rales Cardiovascular: Regular rate, Regular Rhythm, Normal S1, Normal S2, No murmurs Abdomen: Soft, Non Tender, Non-Distended, No Hepato-splenomegaly Extremities: No edema, Capillary Refill Less than 3 Seconds Skin: No rashes, No breakdown Musculoskeletal: Lower extremities wrapped, dressing intact Neurological: No focal neurological deficits, Motor Exam 5/5 strength throughout, Sensory exam intact to light touch and pain, limited by surgery Psych/Mental Status: Normal Affect, Appropriate Assessment & Plan Assessment/Plan (1) Bilateral calcaneal fractures: QUALIFIERS: Encounter type: initial encounter Fracture type: c losed Qualified Code(s): S92.001A - Unspecified fracture of right calcaneus, initial encounter for closed fracture; S92.002A - Unspecified fracture of left calcaneus, initial encounter for closed fracture PLAN: Plan 1. Bilateral calcaneal foot fracture status post repair 04/12/2024/left inferior superior pubic rami fractures - There are no features of compartment syndrome - Continue with [place] and will add ibuprofen, Dilaudid for breakthrough -Appreciate podiatry's assistance ? Plan for discharge on Monday or Monday to SNF 2. Anxiety/ADHD ?Stable ? Continue with her home medications 3. History of GERD ? Started on a PPI as she is concerned that that might be causing part of her nausea DVT: Luann Charges/Coding Visit Charges Inpatient E&M: 36189 Subs Hosp L2
[2024-04-14] MEDS: Polyethylene Glycol 3350 17 GM PACKET PO (10:48)
[2024-04-14] MEDS: Enoxaparin 40 MG/0.4 ML Syringe SC (10:48)
[2024-04-14] MEDS: Senna/Docusate Sodium 1 Tablet 2 TABLET PO ×2 (10:48→22:23)
[2024-04-14] MEDS: Pantoprazole Sodium 40 MG Tablet PO (10:49)
[2024-04-14] MEDS: Ensure Plus High Protein 120 ML LIQUID PO ×2 (10:51→18:05)
[2024-04-14] MEDS: ALPRAZolam 0.25 MG Tablet PO (22:23)
[2024-04-15] MEDS: HYDROcodone Bitartrate/Apap 5/325 Tablet PO ×5 (00:17→15:19)
[2024-04-15 04:42] VITALS: BP 122/87; PULSE 74; RESP 16; TEMP 37.2; O2SAT 98
[2024-04-15] MEDS: busPIRone 15 MG TABLET PO ×3 (06:35→21:06)
[2024-04-15 07:08] LABS: Absolute Lymphocyte Count 1.15 X10^3/uL (0.83-4.51); Absolute Neutrophil Count 2.1 X10^3/uL (2.0-7.7); Hematocrit 35.3 % (37-47); Hemoglobin 11.6 g/dL (12.0-15.0); Lymphocyte # 1.15 X10^3/ul (0.83-4.51); Lymphocyte % 28.8 % (19-41); Mean Corp Hgb Conc 32.9 g/dL (32-36); Mean Corpuscular Hgb 29.7 pg (27.0-32.0); Mean Corpuscular Volume 90.3 fL (81-99); Mean Platelet Vol. 8.7 fl (6.2-12.0); Monocyte% 17.5 % (0-10); NRBC Flagged by Analyzer 0 % (0-5); Neutrophil # 2.14 X10^3/uL (2.7-7.7); Neutrophil % 53.4 % (47-70); Platelet Count 312 K/mm3 (150-450); RBC Distribution Width CV 12.4 % (11.6-14.6); Red Blood Count 3.91 M/mm3 (4.2-5.4)
[2024-04-15 07:42] LABS: Anion Gap 6 (5-15); BUN 19 mg/dL (7-18); BUN/Creat Ratio 35.8 RATIO (10-20); Calcium,Total 9.1 mg/dL (8.5-10.1); Chloride 101 mmol/L (98-107); Creatinine, Serum 0.53 mg/dL (0.55-1.02); EST Glomerular Filtration Rate 124 mL/min (>60); Est Glom Filt Rate - Afr Amer 150 mL/min (>60); Glucose 106 mg/dL (74-106); Potassium 4.1 mmol/L (3.5-5.1); Sodium Level 136 mmol/L (136-145)
[2024-04-15 08:50] VITALS: BP 142/84; PULSE 76; RESP 15; TEMP 36.6; O2SAT 96
[2024-04-15] MEDS: ALPRAZolam 0.25 MG Tablet 0.125 MG PO ×2 (09:09→14:31)
[2024-04-15] MEDS: Ensure Plus High Protein 120 ML LIQUID PO ×3 (09:09→16:29)
[2024-04-15] MEDS: Polyethylene Glycol 3350 17 GM PACKET PO (09:10)
[2024-04-15] MEDS: Pantoprazole Sodium 40 MG Tablet PO (09:10)
[2024-04-15] MEDS: Senna/Docusate Sodium 1 Tablet 2 TABLET PO ×2 (09:10→21:06)
[2024-04-15] MEDS: Enoxaparin 40 MG/0.4 ML Syringe SC (09:10)
[2024-04-15] MEDS: LISDEXAMFETAMINE DIMESYLATE 70 MG CAPSULE PO (09:11)
--- NOTE | 2024-04-15 11:57 | PN_ITS ---
Subjective Subjective 3 day post op ORIF bilateral calc fracture. Pt in good spirits and resting comfortably in no apparent distress, pain controlled. Objective Data Objective Data Vital Signs: Vital Signs Temp Pulse Resp BP Pulse Ox O2 Del Method 97.9 F 76 15 142/84 H 96 Room Air 04/15/24 08:50 04/15/24 08:50 04/15/24 08:50 04/15/24 08:50 04/15/24 08:50 04/15/24 08:50 Oxygen Delivery Method Room Air Weight: 64.6 kg Body Mass Index (BMI) 21.0 Intake & Output: Intake and Output for Last 24 Hours 04/13/24 04/14/24 04/15/24 23:59 23:59 23:59 Intake Total 1162.75 / 1662.75 1550 / 2050 904.5 / 904.5 Balance 1162.75 / 1662.75 1550 / 2050 904.5 / 904.5 Lab / Micro Data 04/15/24 06:08 04/15/24 06:08 Labs: Laboratory Results - last 24 hr 04/15/24 06:08: WBC 4.0 L, RBC 3.91 L, Hgb 11.6 L, Hct 35.3 L, MCV 90.3, MCH 29.7, MCHC 32.9, RDW Std Deviation 41.0, RDW Coeff of Ermel[place] 12.4, Plt Count 312, MPV 8.7, Immature Gran % (Auto) 0.300, Neut % (Auto) 53.4, Lymph % (Auto) 28.8, [place] % (Auto) 17.5 H, Eos % (Auto) 0.0, Baso % (Auto) 0.0, Absolute Neuts (auto) 2.1, Absolute Lymphs (auto) 1.15, Nucleated RBC % 0, Sodium 136, Potassium 4.1, Chloride 101, Carbon Dioxide 29.0, Anion Gap 6, BUN 19 H, Creatinine 0.53 L, Estim Creat Clear Calc 110.80, Est GFR (MDRD) Af Amer 150, Est GFR (MDRD) Non-Af 124, BUN/Creatinine Ratio 35.8 H, Glucose 106, Calcium 9.1 Physical Exam Const alert, oriented x3 and no apparent distress General Appearance: cooperative and well developed Extremity Extremity Narrative: normal perfusion to tissue. both feet normal anatomy restored. no widening, normal calc height. all muscle groups intact Skin General Skin Exam: no breakdown Wound Narrative: no redness, no pain out of proportion, sutures intact, wound coapting bilateral, normal swelling to procedure bilateral. Neuro Neuro Narrative: normal neuro with some sensory dorsal foot numbness feeling but intact to light touch Assessment & Plan Assessment/Plan (1) Bilateral calcaneal fractures: QUALIFIERS: Encounter type: initial encounter Fracture type: c losed Qualified Code(s): S92.001A - Unspecified fracture of right calcaneus, initial encounter for closed fracture; S92.002A - Unspecified fracture of left calcaneus, initial encounter for closed fracture PLAN: Plan 3 days post op ORIF bilateral calc fracture healing normally and progressing without complication. No SSI. Ok to discharge to rehab facility and follow up in my office next week to remove suture
[2024-04-15 12:37] VITALS: BP 121/86; PULSE 122; RESP 17; TEMP 36.8; O2SAT 94
[2024-04-15] MEDS: Propranolol 10 MG Tablet PO (12:39)
[2024-04-15 15:21] VITALS: PULSE 82; O2SAT 94
--- NOTE | 2024-04-15 15:46 | CASEMGMT ---
Social Work- SW updated pt that precert remains pending. SW will remain available to follow. Plan: [facility]; pend precert ALEXUS Sparks
[2024-04-15 16:22] VITALS: BP 116/80; PULSE 77; RESP 16; TEMP 36.8; O2SAT 94
[2024-04-15] MEDS: HYDROmorphone 0.5 MG/0.5 ML SYRINGE IV (16:29)
[2024-04-15] MEDS: 0.9% Saline Lock 10 ML Syringe IV ×2 (16:30→21:07)
--- NOTE | 2024-04-15 16:30 | PCM.PN.HOSP ---
Reason for Visit Reason for Visit: Diagnoses Nondisplaced fracture of lateral malleolus of right fibula, initial encounter for closed fracture (04/06/24) Unspecified fracture of right calcaneus, initial encounter for closed fracture (04/06/24) Unspecified fracture of left calcaneus, initial encounter for closed fracture (04/06/24) Subjective Subjective Patient with some soreness and also some left pelvic soreness as well where she has a fractures, no chest pain or shortness of breath, does report some numbness on the top of both of her feet Objective Data Objective Data Vital Signs: Vital Signs Temp Pulse Resp BP Pulse Ox O2 Del Method 98.2 F 77 16 116/80 94 Room Air 04/15/24 16:22 04/15/24 16:22 04/15/24 16:22 04/15/24 16:22 04/15/24 16:22 04/15/24 16:22 Oxygen Delivery Method Room Air Weight: 64.6 kg Body Mass Index (BMI) 21.0 Intake & Output: Intake and Output for Last 24 Hours 04/13/24 04/14/24 04/15/24 23:59 23:59 23:59 Intake Total 1162.75 / 1662.75 1550 / 2050 1304.5 / 1304.5 Balance 1162.75 / 1662.75 1550 / 2050 1304.5 / 1304.5 Lab / Micro Data 04/15/24 06:08 04/15/24 06:08 Labs: Laboratory Results - last 24 hr 04/15/24 06:08: WBC 4.0 L, RBC 3.91 L, Hgb 11.6 L, Hct 35.3 L, MCV 90.3, MCH 29.7, MCHC 32.9, RDW Std Deviation 41.0, RDW Coeff of Ermel[place] 12.4, Plt Count 312, MPV 8.7, Immature Gran % (Auto) 0.300, Neut % (Auto) 53.4, Lymph % (Auto) 28.8, [place] % (Auto) 17.5 H, Eos % (Auto) 0.0, Baso % (Auto) 0.0, Absolute Neuts (auto) 2.1, Absolute Lymphs (auto) 1.15, Nucleated RBC % 0, Sodium 136, Potassium 4.1, Chloride 101, Carbon Dioxide 29.0, Anion Gap 6, BUN 19 H, Creatinine 0.53 L, Estim Creat Clear Calc 110.80, Est GFR (MDRD) Af Amer 150, Est GFR (MDRD) Non-Af 124, BUN/Creatinine Ratio 35.8 H, Glucose 106, Calcium 9.1 Physical Exam Narrative General: Alert, oriented HEENT: Atraumatic, normocephalic Eyes: Anicteric, normal conjunctiva, extraocular movements grossly intact Neck: Supple Respiratory: Clear to auscultation bilaterally, normal respiratory effort Cardiovascular: Regular rhythm GI: Soft, nontender, nondistended Extremities: Bilateral lower extremities wrapped Musculoskeletal: Bilateral lower extremities elevated and wrapped in bed Neuro: No overt focal neurological deficits Skin: No rashes appreciated Psych: Cooperative Assessment & Plan Assessment/Plan (1) Fall: QUALIFIERS: Encounter type: initial encounter Qualified Code(s): W19.XXXA - Unspecified fall, initial encounter (2) Bilateral calcaneal fractures: QUALIFIERS: Encounter type: initial encounter Fracture type: closed Qualified Code(s): S92.001A - Unspecified fracture of right calcaneus, initial encounter for closed fracture; S92.002A - Unspecified fracture of left calcaneus, initial encounter for closed fracture PLAN: Plan 1. Bilateral calcaneal foot fracture status post repair 04/12/2024/left inferior superior pubic rami fractures - There are no features of compartment syndrome - Continue with [place] and will add ibuprofen, Dilaudid for breakthrough -Appreciate podiatry's assistance ? Plan for discharge on Monday or Monday to SNF -04/15: Patient resting in bed, awaiting SNF. Continue pain control. Patient to be nonweightbearing bilaterally, change bandage daily 2. Anxiety/ADHD ?Stable ? Continue with her home medications -04/15: Patient on BuSpar 15 3 times daily and Xanax scheduled. Recommend outpatient follow-up 3. History of GERD ? Started on a PPI as she is concerned that that might be causing part of her nausea -04/15: Tolerating Protonix well DVT: Lovenox Charges/Coding Visit Charges Inpatient E&M: 62908 Subs Hosp L1
[2024-04-15 20:49] VITALS: BP 114/80; PULSE 81; RESP 18; TEMP 36.6; O2SAT 100
[2024-04-15] MEDS: Ondansetron 4 MG/2 ML Vial IV (21:07)
[2024-04-15] MEDS: ALPRAZolam 0.25 MG Tablet PO (21:07)
[2024-04-16] MEDS: HYDROcodone Bitartrate/Apap 5/325 Tablet PO (00:01)
[2024-04-16] MEDS: Ibuprofen 400 MG Tablet PO ×2 (00:01→09:01)
[2024-04-16 03:48] VITALS: BP 123/88; PULSE 83; RESP 18; TEMP 36.5; O2SAT 100
[2024-04-16] MEDS: busPIRone 15 MG TABLET PO (06:20)
[2024-04-16] MEDS: LISDEXAMFETAMINE DIMESYLATE 70 MG CAPSULE PO (06:21)
[2024-04-16 06:58] LABS: Hematocrit 36.4 % (37-47); Mean Corpuscular Hgb 29.7 pg (27.0-32.0); Mean Corpuscular Volume 90.1 fL (81-99); Mean Platelet Vol. 8.5 fl (6.2-12.0); Platelet Count 353 K/mm3 (150-450); RBC Distribution Width CV 12.4 % (11.6-14.6); RBC Distribution Width SD 40.8 fl (35.1-43.9); Red Blood Count 4.04 M/mm3 (4.2-5.4); White Blood Count 4.1 K/mm3 (4.4-11.0)
[2024-04-16 07:24] LABS: Anion Gap 5 (5-15); BUN 22 mg/dL (7-18); BUN/Creat Ratio 36.8 RATIO (10-20); Calcium,Total 9.3 mg/dL (8.5-10.1); Chloride 100 mmol/L (98-107); EST Glomerular Filtration Rate 108 mL/min (>60); Est Glom Filt Rate - Afr Amer 130 mL/min (>60); Estimated Creatinine Clearance 97.87 ml/min; Glucose 103 mg/dL (74-106); Potassium 4.4 mmol/L (3.5-5.1); Sodium Level 136 mmol/L (136-145)
[2024-04-16] MEDS: ALPRAZolam 0.25 MG Tablet 0.125 MG PO (09:01)
--- NOTE | 2024-04-16 09:01 | CASEMGMT ---
Discharge Planning [facility] has obtained auth to admit. SW and physician updated. Raiza Martel DC Planning Asst.
[2024-04-16] MEDS: Enoxaparin 40 MG/0.4 ML Syringe SC (09:02)
[2024-04-16] MEDS: Polyethylene Glycol 3350 17 GM PACKET PO (09:02)
[2024-04-16] MEDS: Pantoprazole Sodium 40 MG Tablet PO (09:02)
[2024-04-16] MEDS: Senna/Docusate Sodium 1 Tablet 2 TABLET PO (09:02)
[2024-04-16] MEDS: Propranolol 10 MG Tablet PO (09:10)
[2024-04-16 09:29] VITALS: BP 134/93; PULSE 113; RESP 16; TEMP 36.4; O2SAT 98
--- NOTE | 2024-04-16 10:07 | TREXTCAR_ITS ---
Diet Diet Order/Speech Therapy: 04/06/24 17:51 Diet: Regular - General Food consistency:: Regular Liquid Consistency:: Regular/Thin Routine Orders/Code Status Suppository Type: Dulcolax 10mg Suppository Frequency: Daily PRN Code Status: Full Code DC O2, CPAP, BIPAP needs Additional Home O2 Discharge instructions: No Wound(s) right lower leg: Wound Type: Surgical Incision left lower leg: Wound Type: Surgical Incision Therapies Weight Bearing: Non weight bearing Physical Therapy: Eval and Treat Occupational Therapy: Eval and Treat Problem/Diagnosis (1) Fall: Status: Acute Code(s): W19.XXXA - Unspecified fall, initial encounter (2) Bilateral calcaneal fractures: Status: Acute Code(s): S92.001A - Unspecified fracture of right calcaneus, initial encounter for closed fracture; S92.002A - Unspecified fracture of left calcaneus, initial encounter for closed fracture Plan 1. Bilateral calcaneal foot fracture status post repair 04/12/2024/left inferior superior pubic rami fractures 2. Anxiety/ADHD 3. History of GERD 64-year-old female with history of anxiety and ADHD presented [facility] ED 04/06/2024 due to jumping off of a ladder to avoid falling and hurting both of her ankles. X-rays obtained showed calcaneal fractures of both feet. She was also found to have left inferior superior pubic rami fractures. Patient underwent bilateral ORIF of calcaneal fractures 04/12/2024. She tolerated this well and was on pain control and evaluated by PT/OT. Plan is for placement. Patient accepted to [facility]. On day of discharge patient had no new or acute complaints. Discharge instructions as follows: DISCHARGE INSTRUCTIONS PLEASE READ *Please take this with you to your next doctors appointment* -Nonweightbearing on ankles -Okay to bathe both feet -Change bandages daily with 4 x 4's, Kerlix, splint, Shun wrap's -Please follow-up with Dr. Kennedy for follow-up appointment next week. Please call their office to schedule hospital follow-up appointment on discharge -Please call your primary care provider's office upon discharge to schedule a hospital follow up within 1 week. -For any concerning signs or symptoms please call 911 or proceed to the nearest emergency department Allergies/Procedures Done in Hospital Allergies clarithromycin (From Biaxin) Allergy (Verified 04/06/24 14:12) Nausea/Vom/Diarrhea famotidine (From Pepcid) Allergy (Verified 04/06/24 14:12) PT UNSURE OF REACTION oxycodone (From Percocet) Allergy (Verified 04/06/24 14:12) PT UNSURE OF REACTION Penicillins Allergy (Verified 04/06/24 14:12) Rash Procedures: - (bilateral ORIF of calcaneal fractures 04/12/2024 w/ Dr. Kennedy) Type of Care/Length of Stay Estimated LOS: Convalescent Care Less Than 30 days Type of Care Needed: Skilled Rehab Potential: Fair Prognosis: Fair Additional Orders/Day of Discharge Day of Discharge: 04/16/24 Dietary and Speech Recommendations Dietitian Recommendations/Changes: Continue regular diet. Continue 120ml ensure TID with medpass. Will monitor weight, as available. Discharge Plan Admission Admit Date/Time: 04/06/24 16:21 Primary Reason for Your Visit: Ankle fractures Attending Provider: Ayde Sahni Primary Care Provider: Yarely Tolentino NP Consulting Providers: Wolfgang Kennedy; Reji Mar; Lefty Singh; Jose Bah Instructions Patient Instructions: ED Fall Prevention Additional Instructions / Restrictions: DISCHARGE INSTRUCTIONS PLEASE READ *Please take this with you to your next doctors appointment* -Nonweightbearing on ankles -Okay to bathe both feet -Change bandages daily with 4 x 4's, Kerlix, splint, Shun wrap's -Please follow-up with Dr. Kennedy for follow-up appointment next week. Please call their office to schedule hospital follow-up appointment on discharge -Please call your primary care provider's office upon discharge to schedule a hospital follow up within 1 week. -For any concerning signs or symptoms please call 911 or proceed to the nearest emergency department Discharge Orders/Prescriptions Prescriptions: New hydrocodone-acetaminophen 5-325 mg Tablet 1 - 2 tab PO Q4H PRN PRN (Reason: Pain Score 4-10 Or Pre Pt/Ot) 3 Days Qty: 15 0RF sennosides-docusate sodium [Stimulant Laxative Plus] 8.6-50 mg Tablet 2 tab PO BID Qty: 0 0RF pantoprazole 40 mg Tablet,Delayed Release (Dr/Ec) 40 mg PO DAILY 30 Days Qty: 0 0RF ibuprofen 400 mg Tablet 400 mg PO Q6H PRN PRN (Reason: Pain Score 1-10) Qty: 0 0RF Continued buspirone 15 mg tablet 15 mg PO TID Patient Comments: Take 1 tablet by mouth three times a day. diphenhydramine HCl [Benadryl] 25 mg capsule 25 mg PO Q8H PRN (Reason: allergy symptoms) lisdexamfetamine 70 mg capsule 70 mg PO DAILY 3 Days Qty: 3 0RF Patient Comments: TAKE 1 CAPSULE BY MOUTH ONCE DAILY Rx Instructions: Pt using home supply Changed alprazolam [Xanax] 0.5 mg tablet 0.25 mg PO BID 3 Days Qty: 3 0RF Discontinued ibuprofen 200 mg capsule 400 mg PO Q8H Referrals / Follow Up: Wolfgang Kennedy, DPM [Med Staff - Courtesy Staff] - Within 1 Week Yarely Tolentino TERRITORY SALES CONSULTANT, TERRITORY SALES CONSULTANT-C [Primary Care Provider] - Disposition Disposition (needs filled in before D/C Order can be placed): [facility] (1) Fall Qualifiers: Encounter type: initial encounter Qualified Code(s): W19.XXXA - Unspecified fall, initial encounter (2) Bilateral calcaneal fractures Qualifiers: Encounter type: initial encounter Fracture type: closed Qualified Code(s): S92.001A - Unspecified fracture of right calcaneus, initial encounter for closed fracture; S92.002A - Unspecified fracture of left calcaneus, initial encounter for closed fracture
--- NOTE | 2024-04-16 10:09 | DS.PCM_ITS ---
Providers Date of Admission: 04/06/24 Date of Discharge: 04/16/24 Primary Care Physician: RENZO Ortiz Consultations 04/06/24 17:54 Consult: Orthopedics Routine Consulting Provider: Wolfgang Kennedy Reason for Consult: Foot fracture EMERGENT Consult: No MD Notified: Yes Date Notified: 04/06/24 Time Notified: 17:55 Method of Notification: ED Physician Initiated 04/06/24 17:55 Consult: Podiatry Routine Consulting Provider: Wolfgang Kennedy Reason for Consult: Calcaneal fracture EMERGENT Consult: No MD Notified: Yes Date Notified: 04/06/24 Time Notified: 17:55 Method of Notification: Verbal Reason For Visit: FALL Diagnosis Discharge Diagnosis (1) Fall: Status: Acute Code(s): W19.XXXA - Unspecified fall, initial encounter Qualifiers: Encounter type: initial encounter Qualified Code(s): W19.XXXA - Unspecified fall, initial encounter (2) Bilateral calcaneal fractures: Status: Acute Code(s): S92.001A - Unspecified fracture of right calcaneus, initial encounter for closed fracture; S92.002A - Unspecified fracture of left calcaneus, initial encounter for closed fracture Qualifiers: Encounter type: initial encounter Fracture type: closed Qualified Code(s): S92.001A - Unspecified fracture of right calcaneus, initial encounter for closed fracture; S92.002A - Unspecified fracture of left calcaneus, initial encounter for closed fracture Plan 1. Bilateral calcaneal foot fracture status post repair 04/12/2024/left inferior superior pubic rami fractures 2. Anxiety/ADHD 3. History of GERD Medications at Discharge Home Medications buspirone 15 mg tablet 15 mg PO TID 06/17/23 diphenhydramine HCl 25 mg capsule (Benadryl) 25 mg PO Q8H PRN allergy symptoms 06/17/23 alprazolam 0.5 mg tablet (Xanax) 0.25 mg (1/2 x 0.5 mg) PO BID 3 days #3 tabs 04/16/24 hydrocodone-acetaminophen 5-325mg 5mg-325mg 1 - 2 tab PO Q4H PRN PRN Pain Score 4-10 Or Pre Pt/Ot 3 days #15 tabs 04/16/24 ibuprofen 400 mg tablet 400 mg PO Q6H PRN PRN Pain Score 1-10 #0 tabs 04/16/24 lisdexamfetamine 70 mg capsule 70 mg PO DAILY 3 days #3 caps 04/16/24 pantoprazole 40 mg tablet,delayed release 40 mg PO DAILY 30 days #0 tabs 04/16/24 sennosides 8.6 mg-docusate sodium 50 mg tablet (Stimulant Laxative Plus) 2 tab PO BID #0 tabs 04/16/24 Hospital Course Procedures - (ORIF both ankles 04/12/24 w/ Dr. Kennedy) Summary of Care Provided Minutes Spent on Discharge: 22 Hospital Course: 64-year-old female with history of anxiety and ADHD presented [facility] ED 04/06/2024 due to jumping off of a ladder to avoid falling and hurting both of her ankles. X-rays obtained showed calcaneal fractures of both feet. She was also found to have left inferior superior pubic rami fractures. Patient underwent bilateral ORIF of calcaneal fractures 04/12/2024. She tolerated this well and was on pain control and evaluated by PT/OT. Plan is for placement. [facility]. On day of discharge patient had no new or acute complaints. Discharge instructions as follows: DISCHARGE INSTRUCTIONS PLEASE READ *Please take this with you to your next doctors appointment* -Nonweightbearing on ankles -Okay to bathe both feet -Change bandages daily with 4 x 4's, Kerlix, splint, Shun wrap's -Please follow-up with Dr. Kennedy for follow-up appointment next week. Please call their office to schedule hospital follow-up appointment on discharge -Please call your primary care provider's office upon discharge to schedule a hospital follow up within 1 week. -For any concerning signs or symptoms please call 911 or proceed to the nearest emergency department Physical Exam Narrative General: Alert, oriented HEENT: Atraumatic, normocephalic Eyes: Anicteric, normal conjunctiva, extraocular movements grossly intact Neck: Supple Respiratory: Clear to auscultation bilaterally, normal respiratory effort Cardiovascular: Regular rhythm GI: Soft, nontender, nondistended Extremities: Bilateral lower extremities wrapped Musculoskeletal: Bilateral lower extremities elevated and wrapped in bed Neuro: No overt focal neurological deficits Skin: No rashes appreciated Psych: Cooperative Weight / BMI Weight Weight: 64.6 kg Body Mass Index (BMI) 21.0 ABG / Lab / Microbiology Data 04/16/24 06:08 04/16/24 06:08 Laboratory: Laboratory Results - last 24 hr 04/16/24 06:08: WBC 4.1 L, RBC 4.04 L, Hgb 12.0, Hct 36.4 L, MCV 90.1, MCH 29.7, MCHC 33.0, RDW Std Deviation 40.8, RDW Coeff of [place]rmel[place] 12.4, Plt Count 353, MPV 8.5, Sodium 136, Potassium 4.4, Chloride 100, Carbon Dioxide 31.0, Anion Gap 5, BUN 22 H, Creatinine 0.60, Estim Creat Clear Calc 97.87, Est GFR (MDRD) Af Amer 130, Est GFR (MDRD) Non-Af 108, BUN/Creatinine Ratio 36.8 H, Glucose 103, Calcium 9.3 D/C Instructions Discharge Diet: No restrictions DC O2, CPAP, BIPAP Needs Additional Home O2 Discharge instructions: No DC home with Oxygen: No Meaningful Use Info Meaningful Use Meaningful Use Diagnoses (Choose all that apply): None applicable Ischemic Stroke Statin Dosing Therapy Reference: STATIN DOSE THERAPY REFERENCE: * Patients > 75 years receive moderate or high dose statin therapy. * Patients 75 years or YOUNGER should receive HIGH intensity statin dose unless contraindicated. You will be required to document reason for non-treatment if statin daily dose does not meet guidelines. HIGH DOSE STATIN THERAPY DAILY Atorvastatin > than or = to 40 mg Rosuvastatin > than or = to 20 mg Amlodipine + Atorvastatin > than or = to 2.5/40 mg Ezetimibe + Simvastatin 10/80 mg Simvastatin 80mg Discharge Plan Admission Admit Date/Time: 04/06/24 16:21 Primary Reason for Your Visit: Ankle fractures Attending Provider: Ayde Sahni Primary Care Provider: Yarely Tolentino NP Consulting Providers: Wolfgang Kennedy; Reji aMr; Lefty Singh; Jose Bha Instructions Patient Instructions: ED Fall Prevention Additional Instructions / Restrictions: DISCHARGE INSTRUCTIONS PLEASE READ *Please take this with you to your next doctors appointment* -Nonweightbearing on ankles -Okay to bathe both feet -Change bandages daily with 4 x 4's, Kerlix, splint, Shun wrap's -Please follow-up with Dr. Kennedy for follow-up appointment next week. Please call their office to schedule hospital follow-up appointment on discharge -Please call your primary care provider's office upon discharge to schedule a hospital follow up within 1 week. -For any concerning signs or symptoms please call 911 or proceed to the nearest emergency department Discharge Orders/Prescriptions Prescriptions: New hydrocodone-acetaminophen 5-325 mg Tablet 1 - 2 tab PO Q4H PRN PRN (Reason: Pain Score 4-10 Or Pre Pt/Ot) 3 Days Qty: 15 0RF sennosides-docusate sodium [Stimulant Laxative Plus] 8.6-50 mg Tablet 2 tab PO BID Qty: 0 0RF pantoprazole 40 mg Tablet,Delayed Release (Dr/Ec) 40 mg PO DAILY 30 Days Qty: 0 0RF ibuprofen 400 mg Tablet 400 mg PO Q6H PRN PRN (Reason: Pain Score 1-10) Qty: 0 0RF Continued buspirone 15 mg tablet 15 mg PO TID Patient Comments: Take 1 tablet by mouth three times a day. diphenhydramine HCl [Benadryl] 25 mg capsule 25 mg PO Q8H PRN (Reason: allergy symptoms) lisdexamfetamine 70 mg capsule 70 mg PO DAILY 3 Days Qty: 3 0RF Patient Comments: TAKE 1 CAPSULE BY MOUTH ONCE DAILY Rx Instructions: Pt using home supply Changed alprazolam [Xanax] 0.5 mg tablet 0.25 mg PO BID 3 Days Qty: 3 0RF Discontinued ibuprofen 200 mg capsule 400 mg PO Q8H Referrals / Follow Up: Wolfgang Kennedy DPM [Med Staff - Courtesy Staff] - Within 1 Week Yarely Tolentino NP, [employer] [Primary Care Provider] - Disposition Disposition (needs filled in before D/C Order can be placed): [facility] Charges/Coding Visit Charges Inpatient E&M: 57280 Disch Hosp
--- NOTE | 2024-04-16 10:48 | PHA.DC.MR.R ---
Pharmacy [place] Med Reconciliation Pharmacy Service has performed discharge medication reconciliation for this patient. The patient's discharge medication list was reviewed for discrepancies and discrepancies were resolved. Medications at Discharge Home Medications buspirone 15 mg tablet 15 mg PO TID 06/17/23 diphenhydramine HCl 25 mg capsule (Benadryl) 25 mg PO Q8H PRN allergy symptoms 06/17/23 alprazolam 0.5 mg tablet (Xanax) 0.25 mg (1/2 x 0.5 mg) PO BID 3 days #3 tabs 04/16/24 hydrocodone-acetaminophen 5-325mg 5mg-325mg 1 - 2 tab PO Q4H PRN PRN Pain Score 4-10 Or Pre Pt/Ot 3 days #15 tabs 04/16/24 ibuprofen 400 mg tablet 400 mg PO Q6H PRN PRN Pain Score 1-10 #0 tabs 04/16/24 lisdexamfetamine 70 mg capsule 70 mg PO DAILY 3 days #3 caps 04/16/24 pantoprazole 40 mg tablet,delayed release 40 mg PO DAILY 30 days #0 tabs 04/16/24 sennosides 8.6 mg-docusate sodium 50 mg tablet (Stimulant Laxative Plus) 2 tab PO BID #0 tabs 04/16/24
--- NOTE | 2024-04-16 11:11 | CASEMGMT ---
Social Work Precert has been obtained.? Physician updated and pt is ready for discharge today.? PASRR form completed in [facility]. DCA and bedside nurse notified of discharge. Disposition:[facility], skilled level of care under convalescent stay. ALEXUS Sparks
--- NOTE | 2024-04-16 11:19 | CASEMGMT ---
Discharge Planning Discharge orders, signed med list, and transport time sent to [facility] [place] via [facility]. Physicians will transport patient by cot at 1p. Nursing, SW, and patient updated. Pt will update her son (Javier). Raiza Martel DC Planning Asst.
== END 2024-04-16 13:10 | disposition skilled nursing facility (03) | DRG 314 ==
LOC: ED 14:44 → MS3 17:13
PROVIDERS: Family Medicine; Podiatrist Foot & Ankle Surgery; Admitting Provider Internal Medicine; Emergency Provider Emergency Medicine; PCP Nurse Practitioner Family; Referring Provider Emergency Medicine; Visit Provider Internal Medicine
PROC: 0QSL04Z Reposition Right Tarsal with Internal Fixation Device, Open Approach (ICD-10-PCS; principal; 2024-04-12 07:10)
DX: S92.001A Unspecified fracture of right calcaneus, initial encounter for closed fracture (principal); S92.002A Unspecified fracture of left calcaneus, initial encounter for closed fracture; F32.A Depression, unspecified; S32.592A Other specified fracture of left pubis, initial encounter for closed fracture; S39.012A Strain of muscle, fascia and tendon of lower back, initial encounter; S82.61XA Displaced fracture of lateral malleolus of right fibula, initial encounter for closed fracture; F41.9 Anxiety disorder, unspecified; K21.9 Gastro-esophageal reflux disease without esophagitis; Z79.891 Long term (current) use of opiate analgesic; F90.9 Attention-deficit hyperactivity disorder, unspecified type; W11.XXXA Fall on and from ladder, initial encounter
CPT/HCPCS: 29515; 36415; 71045; 72131; 73502; 73610; 73630; 73650; 73700; 76000; 80048; 80053; 83735; 85025; 85027; 85610; 93005; 97110; 97162; 97166; 97530; 97535; 99285; C1713; J7120; A4216; J2405